=== PATIENT | female | born 1950 | race Caucasian/White ===

== ENCOUNTER → 2016-07-22 12:33 | Outpatient (CLI) | payer OTHER ==
--- NOTE | 2016-08-03 08:42 | EC ---
PATIENT:LIZBETH DANIELSON DATE OF SERVICE: 07/22/16 SEX: F MEDICAL RECORD: [id number] DATE OF : [birth year] LOCATION:[facility] AGE OF PATIENT: 65 ADMISSION DATE: 07/22/16 REFERRING PHYSICIAN: INTERPRETING PHYSICIAN: ROBERTO COHEN MD ECHOCARDIOGRAM REPORT ECHO CHARGES 4 ECHO COMPLETE CLINICAL DIAGNOSIS: PLAPITATIONS ECHOCARDIOGRAPHIC MEASUREMENTS (adult normal given) AC root (d.<3.7cm) 3.4 LV Septum d (<1.2 cm> 1.4 Valve Excursion 1.8 LV Septum (systole) 2.1 Left Atria (s.<4.0cm> 3.6 LVPW d(<1.2cm) 1.4 RV (d.<2.3cm) 3.3 LVPW (sytole) 2.2 LV diastole(<5.6CM) 5.6 MV E-F(>70mm/sec) LV systole 3.2 LVOT Diameter 2.0 MV exc.(>10mm) 1.7 Est.ejection fraction (50-75%) Pericardial Effusion N DOPPLER: LVIT A 100 E 90.0 LA RVSP 24 LVOT 122 AOP1/2T Asc. Ao 170 RVOT 60 RA PA 103 AV Gradient Peak 11.53 AV Mean 5.66 AV Area 2.1 MV Gradient Peak 4.89 MV Mean 2.04 MV Area COMMENTS: Gum Sprayer: Jelani FLOREZ Human Resource Manager:Nirav Hale TAPE# DATE OF SERVICE: 07/22/2016 Adequate 2D echo, color flow and spectral Doppler, and M-mode. Mild LVH. LV internal dimension is normal. Wall motion is normal. EF 55%. Aortic valve is tricuspid. No stenosis by Doppler interrogation. The left atrium is normal at 3.6 cm. Mitral valve shows no prolapse. Trace MR. Right-sided chamber is grossly normal. Trace TR. TRANSINT:[id number] Voice Confirmation ID: [id number] DOCUMENT ID: [id number] 08/01/2016 Edited to correct date of service and fill in blank, dmm. ECHOCARDIOGRAM REPORT [id number] BENLIZBETH OROZCO ROBERTO COHEN MD at 0842 CC: [id number] DICTATION DATE: 07/23/16 1005 INTERNAL AUDIT SENIOR MANAGER: 07/24/16 0811 DEP CLI 07/22/16 [place] [id number] [facility] [place] [address]
== END | disposition home or self-care (01) ==
LOC: D.ECHO 12:33
DX: R00.2 Palpitations (principal)

== ENCOUNTER 2016-10-09 21:26 | Emergency (ER) | payer OTHER ==
[2016-10-09 22:03] LABS: BASOPHILS 0.6 % (0-2); EOSINOPHILS 3.6 % (0-7); HEMATOCRIT 39.6 % (36.0-48.0); HEMOGLOBIN 13.6 g/dL (12-16); IMMATURE GRANULOCYTES 0.2 % (0-5); LYMPHOCYTES 19.8 % (15-50); MCH 28.5 pg (26.0-34.0); MCHC 34.3 g/dL (31.0-37.0); MCV 82.8 fL (80.0-100.0); MEAN PLATELET VOLUME 9.1 fL (7.4-10.4); MONOCYTES 7.3 % (2-11); NEUTROPHILS 68.5 % (40-80); RBC 4.78 10x6/uL (4.00-5.40); RDW 13.5 % (11.5-14.5)
[2016-10-09 22:05] LABS: PLATELET COUNT 224 10x3/uL (130-400)
[2016-10-09 22:16] LABS: ALBUMIN 3.7 g/dL (3.4-5.0); ALKALINE PHOSPHATASE 62 U/L (46-116); ALT (SGPT) 23 U/L (10-68); BILIRUBIN - TOTAL 0.78 mg/dL (0.2-1.3); CARBON DIOXIDE 27.8 mmol/L (21.0-32.0); CHLORIDE - SERUM 106 mmol/L (98-107); CREATININE - SERUM 0.6 mg/dL (0.6-1.3); GLUCOSE 90 mg/dL (74-106); POTASSIUM - SERUM 3.1 mmol/L (3.5-5.1); PROTEIN - SERUM 6.8 g/dL (6.4-8.2); eGFR NON AFRICAN AMERICAN > 90 mL/min (90-120)
[2016-10-09 22:33] LABS: CALC OSMOLALITY 278 mosm/kg (275-300); SODIUM 141 mmol/L (136-145); TROPONIN-I < 0.017 ng/mL (0.000-0.060); UREA NITROGEN 6 mg/dL (7-18)
== END 2016-10-10 00:15 | disposition home or self-care (01) ==
LOC: D.ER 21:26
PROVIDERS: Family Medicine
DX: I10 Essential (primary) hypertension (principal); Z91.19 Patient's noncompliance with other medical treatment and regimen; F41.9 Anxiety disorder, unspecified

== ENCOUNTER 2017-02-11 15:41 | Emergency (ER) | payer OTHER | END 2017-02-11 18:36 | disposition home or self-care (01) | LOC: D.ER 15:41 | DX: S50.811A Abrasion of right forearm, initial encounter (principal); Y04.2XXA Assault by strike against or bumped into by another person, initial encounter; Y93.89 Activity, other specified; Y92.029 Unspecified place in mobile home as the place of occurrence of the external cause; I10 Essential (primary) hypertension ==

== ENCOUNTER 2017-12-31 15:21 | Emergency (ER) | payer OTHER ==
[~2017-12-31] VITALS: Ht 157.5 cm; Wt 75.0 kg
[2017-12-31 15:24] VITALS: Ht 157.5 cm; Wt 75.0 kg
[2017-12-31] MEDS ORDERED: LEXAPRO20 MG PO (15:36)
[2017-12-31 16:51] LABS: BASOPHILS 0.3 % (0-2); EOSINOPHILS 1.7 % (0-7); HEMATOCRIT 41.5 % (36.0-48.0); HEMOGLOBIN 13.9 g/dL (12-16); IMMATURE GRANULOCYTES 0.2 % (0-5); LYMPHOCYTES 9.7 % (15-50); MCHC 33.5 g/dL (31.0-37.0); MCV 83.7 fL (80.0-100.0); MEAN PLATELET VOLUME 9.3 fL (7.4-10.4); MONOCYTES 6.9 % (2-11); NEUTROPHILS 81.2 % (40-80); PLATELET COUNT 177 10x3/uL (130-400); RBC 4.96 10x6/uL (4.00-5.40); RDW 13.8 % (11.5-14.5)
[2017-12-31 16:59] LABS: APPEARANCE CLEAR (CLEAR); COLOR YELLOW (YELLOW); SPECIFIC GRAVITY 1.015 (1.005-1.020)
[2017-12-31 17:00] LABS: BILIRUBIN NEGATIVE (NEGATIVE); GLUCOSE NEGATIVE (NEGATIVE); KETONE NEGATIVE (NEGATIVE); NITRITE NEGATIVE (NEGATIVE); PROTEIN NEGATIVE (NEGATIVE); UROBILINOGEN NORMAL (NORMAL)
[2017-12-31 17:01] LABS: BACTERIA FEW /hpf (NONE SEEN); EPITHELIAL CELLS 0-5 /hpf (0-5); WHITE CELLS - URINE 0-5 /hpf (0-5)
[2017-12-31 17:37] LABS: ALBUMIN 3.3 g/dL (3.4-5.0); ALKALINE PHOSPHATASE 57 U/L (46-116); ALT (SGPT) 19 U/L (10-68); BILIRUBIN - TOTAL 0.67 mg/dL (0.2-1.3); CALC OSMOLALITY 277 mosm/kg (275-300); CALCIUM 8.7 mg/dL (8.5-10.1); CARBON DIOXIDE 28.8 mmol/L (21.0-32.0); CHLORIDE - SERUM 107 mmol/L (98-107); CKMB 0.5 U/L (0.0-3.6); CREATININE - SERUM 0.6 mg/dL (0.6-1.3); GLUCOSE 99 mg/dL (74-106); PROTEIN - SERUM 6.3 g/dL (6.4-8.2); SODIUM 140 mmol/L (136-145); TROPONIN-I < 0.017 ng/mL (0.000-0.060); UREA NITROGEN 10 mg/dL (7-18); eGFR NON AFRICAN AMERICAN > 90 mL/min (90-120)
[2017-12-31] MEDS ORDERED: MACROBID100 MG PO (18:09)
[2017-12-31 21:00] VITALS: BP 133/77
== END 2017-12-31 21:31 | disposition home or self-care (01) ==
LOC: D.ER 15:21
PROVIDERS: Emergency Medicine
DX: N39.0 Urinary tract infection, site not specified (principal); R53.83 Other fatigue; R53.1 Weakness; R41.0 Disorientation, unspecified

== ENCOUNTER 2018-05-07 18:50 | Emergency (ER) | payer MEDICARE ==
[~2018-05-07] VITALS: Ht 157.5 cm; Wt 59.1 kg
[~2018-05-07 18:50] MED LIST: LEXAPRO20 MG PO; MACROBID100 MG PO
[2018-05-07 19:02] VITALS: Ht 157.5 cm; Wt 59.1 kg
[2018-05-07] MEDS ORDERED: DONEPEZIL HCL10 MG PO (19:10)
[2018-05-07 19:35] LABS: BASOPHILS 0.2 % (0-2); EOSINOPHILS 0.5 % (0-7); HEMATOCRIT 44.1 % (36.0-48.0); HEMOGLOBIN 15.2 g/dL (12-16); IMMATURE GRANULOCYTES 0.1 % (0-5); LYMPHOCYTES 7.3 % (15-50); MCH 27.8 pg (26.0-34.0); MCHC 34.5 g/dL (31.0-37.0); MCV 80.6 fL (80.0-100.0); MEAN PLATELET VOLUME 9.4 fL (7.4-10.4); MONOCYTES 7.5 % (2-11); NEUTROPHILS 84.4 % (40-80); PLATELET COUNT 193 10x3/uL (130-400); RBC 5.47 10x6/uL (4.00-5.40); RDW 13.5 % (11.5-14.5); WBC 9.3 10x3/uL (4.8-10.8)
[2018-05-07 19:57] LABS: ALBUMIN 3.7 g/dL (3.4-5.0); ALKALINE PHOSPHATASE 68 U/L (46-116); ALT (SGPT) 36 U/L (10-68); BILIRUBIN - TOTAL 0.91 mg/dL (0.2-1.3); CALC OSMOLALITY 279 mosm/kg (275-300); CALCIUM 9.6 mg/dL (8.5-10.1); CARBON DIOXIDE 27.9 mmol/L (21.0-32.0); CHLORIDE - SERUM 101 mmol/L (98-107); CREATININE - SERUM 0.7 mg/dL (0.6-1.3); GLUCOSE 143 mg/dL (74-106); POTASSIUM - SERUM 3.1 mmol/L (3.5-5.1); PROTEIN - SERUM 7.2 g/dL (6.4-8.2); SODIUM 139 mmol/L (136-145); UREA NITROGEN 12 mg/dL (7-18); eGFR NON AFRICAN AMERICAN 89 mL/min (90-120)
[2018-05-07 21:23] LABS: APPEARANCE CLEAR (CLEAR); BILIRUBIN NEGATIVE (NEGATIVE); COLOR YELLOW (YELLOW); GLUCOSE NEGATIVE (NEGATIVE); KETONE MODERATE mg/dL (NEGATIVE); NITRITE NEGATIVE (NEGATIVE); PROTEIN TRACE mg/dL (NEGATIVE); UROBILINOGEN NORMAL (NORMAL)
[2018-05-07 21:24] LABS: WHITE CELLS - URINE 0-5 /hpf (0-5)
[2018-05-07 21:25] LABS: BACTERIA FEW /hpf (NONE SEEN); EPITHELIAL CELLS 0-5 /hpf (0-5); RED CELLS - URINE 0-5 /hpf (0-5)
[2018-05-07 23:04] VITALS: BP 131/63
[2018-05-12 13:25] VITALS: Ht 157.5 cm; Wt 59.1 kg
== END 2018-05-07 23:05 | disposition home or self-care (01) ==
LOC: D.ER 18:50
PROVIDERS: Emergency Medicine
DX: S92.502A Displaced unspecified fracture of left lesser toe(s), initial encounter for closed fracture (principal); W18.30XA Fall on same level, unspecified, initial encounter; Y93.89 Activity, other specified; Y92.019 Unspecified place in single-family (private) house as the place of occurrence of the external cause; E87.6 Hypokalemia; S89.91XA Unspecified injury of right lower leg, initial encounter; R55 Syncope and collapse

== ENCOUNTER 2018-05-11 19:14 | Inpatient (IN) | payer MEDICARE ==
[~2018-05-11] VITALS: Ht 157.5 cm; Wt 75.0 kg
[~2018-05-11 19:14] MED LIST changes: +DONEPEZIL HCL10 MG PO
[2018-05-11 20:02] LABS: BASOPHILS 0.2 % (0-2); EOSINOPHILS 1.2 % (0-7); HEMATOCRIT 44.3 % (36.0-48.0); HEMOGLOBIN 15.1 g/dL (12-16); IMMATURE GRANULOCYTES 0.2 % (0-5); LYMPHOCYTES 9.1 % (15-50); MCH 27.7 pg (26.0-34.0); MCHC 34.1 g/dL (31.0-37.0); MCV 81.1 fL (80.0-100.0); MEAN PLATELET VOLUME 9.9 fL (7.4-10.4); MONOCYTES 7.4 % (2-11); NEUTROPHILS 81.9 % (40-80); PLATELET COUNT 164 10x3/uL (130-400); RBC 5.46 10x6/uL (4.00-5.40); RDW 13.8 % (11.5-14.5); WBC 9.1 10x3/uL (4.8-10.8)
[2018-05-11 21:30] LABS: ALBUMIN 3.2 g/dL (3.4-5.0); ALKALINE PHOSPHATASE 59 U/L (46-116); ALT (SGPT) 44 U/L (10-68); BILIRUBIN - TOTAL 0.53 mg/dL (0.2-1.3); CALC OSMOLALITY 286 mosm/kg (275-300); CHLORIDE - SERUM 106 mmol/L (98-107); CREATININE - SERUM 0.7 mg/dL (0.6-1.3); GLUCOSE 132 mg/dL (74-106); POTASSIUM - SERUM 4.7 mmol/L (3.5-5.1); PROTEIN - SERUM 6.3 g/dL (6.4-8.2); SODIUM 143 mmol/L (136-145); UREA NITROGEN 12 mg/dL (7-18); eGFR NON AFRICAN AMERICAN 89 mL/min (90-120)
[2018-05-11 21:33] LABS: TROPONIN-I < 0.017 ng/mL (0.000-0.060)
[2018-05-11] MEDS ORDERED: METOPROLOL (23:34)
--- NOTE | 2018-05-11 23:47 | NUR ---
RECEIVED FROM ER VIA WC. ALERT/ORIENTED X3. AMBULATES WITH STEADY GAIT. DENIES PAIN. IV IN L AC INTACT SL. ORIENTED TO ROOM AND CALL LIGHT.
[2018-05-12 03:20] VITALS: BP 164/52; BMI 30.2
[2018-05-12 05:35] LABS: BASOPHILS 0.2 % (0-2); EOSINOPHILS 2.7 % (0-7); HEMATOCRIT 39.9 % (36.0-48.0); HEMOGLOBIN 13.5 g/dL (12-16); IMMATURE GRANULOCYTES 0.2 % (0-5); LYMPHOCYTES 28.8 % (15-50); MCH 27.8 pg (26.0-34.0); MCHC 33.8 g/dL (31.0-37.0); MCV 82.3 fL (80.0-100.0); MEAN PLATELET VOLUME 9.7 fL (7.4-10.4); MONOCYTES 8.8 % (2-11); NEUTROPHILS 59.3 % (40-80); PLATELET COUNT 163 10x3/uL (130-400); RBC 4.85 10x6/uL (4.00-5.40); RDW 13.8 % (11.5-14.5)
[2018-05-12 05:47] LABS: WBC 5.3 10x3/uL (4.8-10.8)
[2018-05-12 05:51] LABS: CALC OSMOLALITY 286 mosm/kg (275-300); CALCIUM 8.9 mg/dL (8.5-10.1); CARBON DIOXIDE 32.5 mmol/L (21.0-32.0); CHLORIDE - SERUM 109 mmol/L (98-107); CREATININE - SERUM 0.6 mg/dL (0.6-1.3); GLUCOSE 85 mg/dL (74-106); POTASSIUM - SERUM 4.9 mmol/L (3.5-5.1); SODIUM 145 mmol/L (136-145); UREA NITROGEN 9 mg/dL (7-18); eGFR NON AFRICAN AMERICAN > 90 mL/min (90-120)
[2018-05-12 09:01] VITALS: BP 145/44
--- NOTE | 2018-05-12 10:28 | NUR ---
AMBULATES IN HALLWAY. GAIT STEADY. TELEMETRY SB. HR 57. WILL CONT. PLAN OF CARE.
[2018-05-12 13:25] VITALS: Ht 157.5 cm; Wt 75.0 kg
--- NOTE | 2018-05-12 13:26 | NUR ---
UP AND AMBULATING. DOES NOT WANT SCDS AT THIS TIME.
--- NOTE | 2018-05-12 14:02 | NUR ---
BANDAID APPLIED TO RIGHT ELBOW SKIN ABRAISION.
[2018-05-12 14:03] VITALS: BP 156/40
--- NOTE | 2018-05-12 14:56 | NUR ---
URINE SPECIMEN COLLECTED AND TAKEN TO LAB. WILL MONITOR.
[2018-05-12 15:25] LABS: APPEARANCE CLEAR (CLEAR); BILIRUBIN NEGATIVE (NEGATIVE); COLOR YELLOW (YELLOW); GLUCOSE NEGATIVE (NEGATIVE); KETONE NEGATIVE (NEGATIVE); NITRITE NEGATIVE (NEGATIVE); PROTEIN NEGATIVE (NEGATIVE); UROBILINOGEN NORMAL (NORMAL)
[2018-05-12 17:44] VITALS: BP 136/68
[2018-05-12 20:23] VITALS: BP 131/44
--- NOTE | 2018-05-12 20:30 | NUR ---
ADMIN SCHED MED WITH SIPS OF WATER. DENIES PAIN OR ANY NEEDS. DID NOT EAT ANY OF HER SALAD OR SANDWICH. STATED SHE WAS NOT HUNGRY.
--- NOTE | 2018-05-12 21:00 | NUR ---
AMBULATING OUT IN THE HALLWAY, STATING "THE MEDICINE GIVEN ME IS MAKING MY TEETH MELT AND PART OF MY BRAIN WAS EXCISED". ESCORTED BACK TO HER ROOM AND ASSURED THAT HER TEETH WERE ALL INTACT.
[2018-05-13 01:46] VITALS: BP 169/60
[2018-05-13 05:29] LABS: BASOPHILS 0.2 % (0-2); EOSINOPHILS 3.5 % (0-7); HEMATOCRIT 39.7 % (36.0-48.0); HEMOGLOBIN 13.2 g/dL (12-16); IMMATURE GRANULOCYTES 0.2 % (0-5); LYMPHOCYTES 24.8 % (15-50); MCH 27.6 pg (26.0-34.0); MCHC 33.2 g/dL (31.0-37.0); MCV 82.9 fL (80.0-100.0); MEAN PLATELET VOLUME 9.7 fL (7.4-10.4); MONOCYTES 8.1 % (2-11); NEUTROPHILS 63.2 % (40-80); PLATELET COUNT 161 10x3/uL (130-400); RBC 4.79 10x6/uL (4.00-5.40); RDW 13.8 % (11.5-14.5); WBC 4.8 10x3/uL (4.8-10.8)
[2018-05-13 05:34] VITALS: BP 179/73
[2018-05-13 05:41] LABS: CALC OSMOLALITY 284 mosm/kg (275-300); CALCIUM 8.8 mg/dL (8.5-10.1); CARBON DIOXIDE 31.3 mmol/L (21.0-32.0); CHLORIDE - SERUM 106 mmol/L (98-107); CREATININE - SERUM 0.6 mg/dL (0.6-1.3); GLUCOSE 93 mg/dL (74-106); POTASSIUM - SERUM 4.3 mmol/L (3.5-5.1); SODIUM 142 mmol/L (136-145); eGFR NON AFRICAN AMERICAN > 90 mL/min (90-120)
[2018-05-13 05:43] LABS: UREA NITROGEN 18 mg/dL (7-18)
[2018-05-13 08:31] VITALS: BP 149/102
[2018-05-13] MEDS ORDERED: ZESTRIL10 MG PO (11:24)
--- NOTE | 2018-05-13 11:55 | NUR ---
[facility] E-SCR[facility]. [facility] CL[facility] T[facility] MONDAY MORNING. WILL ATTEMPT TO GET PM DOSE FROM [facility] PATIENT.
--- NOTE | 2018-05-13 14:40 | NUR ---
DC PLANS GIVEN. IV DCD. STILL UNABLE TO GET IN TOUCH WITH BROTHER. LEAVING MESSAGES ON PHONE. NALLELY FROM [facility] CAREGIVER CALLED AND STATED SHE WOULD CONTACT HER BROTHER FOR TRANSPERTATION HOME. I STILL HAVE NOT HEARD ANYTHING BACK. UNSAFE TO SEND HER HOME IN [place] DUE TO HER MENATAL STATES PER ASSET AVAILABILITY LEADER. WILL CONT TO WAIT ON BROTHER.
--- NOTE | 2018-05-13 15:15 | NUR ---
LEAVING HOSPITOL WITH BROTHER. ESCORTED TO CAR BY W/C.
--- NOTE | 2018-05-13 21:00 | MORECARE ---
CASE MANAGEMENT DISCHARGE SUMMARY PATIENT: LIZBETH DANIELSON UNIT: [id number] ADM DATE: 05/12/18 AGE: 67 : 52 SEX: F ROOM/BED: D.2114 AUTHOR: LISANDRA BELLAMY PHYSICIAN: REFERRING PHYSICIAN: JONO OJEDA MD DATE OF SERVICE: 05/13/18 Discharge Plan Patient Name: LIZBETH DANIELSON Facility: [facility]:[place] : 1950 Planned Disposition: Other Type of Facility Anticipated Discharge Date: 05/13/18 Discharge Date: 05/13/2018 Expected LOS: 1 Initial Reviewer: [email or web address] Initial Review Date: 05/11/2018 Generated: 05/13/18 10:00 pm Patient Name: LIZBETH DANIELSON Page [phone] at 2100 All edits/amendments must be made on the electronic document DICTATION DATE: 05/13/182058 LEGAL ENTITY CONTROLLER: AUBRIE 05/13/182058 RPT#: [id number] DC DATE:05/13/18 STATUS: DIS IN [facility] [address] [place] [address] END OF REPORT
--- NOTE | 2018-05-13 21:06 | MORECARE ---
CASE MANAGEMENT DISCHARGE SUMMARY PATIENT: LIZBETH DANIELSON UNIT: [id number] ADM DATE: 05/12/18 AGE: 67 : 52 SEX: F ROOM/BED: D.4484 AUTHOR: LISANDRA BELLAMY PHYSICIAN: REFERRING PHYSICIAN: JONO OJEDA MD DATE OF SERVICE: 05/13/18 Discharge Plan Patient Name: LIZBETH DANIELSON Facility: [facility]:[place] : 1950 Planned Disposition: Other Type of Facility Anticipated Discharge Date: 05/13/18 Discharge Date: 05/13/2018 Expected LOS: 1 Initial Reviewer: [email or web address] Initial Review Date: 05/11/2018 Generated: 05/13/18 10:06 pm Comments DCP- Discharge Planning Updated by [email or web address]: Deepika Garland on 05/13/18 8:[address] LATE ENTRY 1130 CM VISITED WITH THE PATIENT. SHE IS RESTLESS. SHE COULD NOT GIVE HER ADDRESS BUT KNEW SHE DID NOT LIVE ON [facility] AND HOME. SHE HAS A BROTHER AND THE NURSE HAD CALLED HIM. SHE LEFT A VOICE MAIL MESSAGE. THE CONTACT NUMBER ON THE FACE SHEET WAS WRONG. PRIMARY NURSE FOUND ANOTHER PHONE NUMBER TO PLACE CALL. DETERMINED PATIENT MAY LIVE IN [facility] BY HER DESCRIPTION. TC TO THE [facility]. THE SENIOR QA ANALYST HAPPEN TO BE ONSITE AND KNEW THE PATIENT HAD BEEN SENT TO THE HOSPITAL AT [facility]. CONFIRMED SITE OF RESIDENCY. SHE HAD A PERSON'S NUMBER WHO KNEW THE BROTHER. CONTACT MADE LATE THIS AFTERNOON WITH THE BROTHER. HE DID PROVIDE TRANSPORTATION TO [facility]. PATIENT LIVES AT [facility], [address] [place] [address]. BROTHER'S CONTACT PHONE NUMBER SUJIT DANIELSON- [phone] Last DP export: 05/13/18 8:00 pm Patient Name: LIZBETH DANIELSON Page [phone] at 210 All edits/amendments must be made on the electronic document DICTATION DATE: 05/13/182105 BAG CHECKER: AUBRIE 05/13/182105 RPT#: [id number] DC DATE:05/13/18 STATUS: DIS IN [facility] [address] [place] [address] END OF REPORT
== END 2018-05-13 15:15 | disposition home or self-care (01) | DRG 312 ==
LOC: D.ER 19:14 → D.EDHOLD 22:35 → OBSVTIME 22:35 → D.M2 22:54
PROVIDERS: Family Medicine; ADMIT Internal Medicine Nephrology
DX: R55 Syncope and collapse (principal); R00.1 Bradycardia, unspecified; I10 Essential (primary) hypertension

== ENCOUNTER 2018-05-15 19:33 | Observation (INO) | payer MEDICARE ==
[~2018-05-15] VITALS: Ht 157.5 cm; Wt 60.8 kg
[~2018-05-15 19:33] MED LIST changes: +METOPROLOL; +ZESTRIL10 MG PO
[2018-05-15 20:12] LABS: BASOPHILS 0.4 % (0-2); EOSINOPHILS 1.3 % (0-7); HEMOGLOBIN 14.8 g/dL (12-16); MCH 28.1 pg (26.0-34.0); MCHC 34.4 g/dL (31.0-37.0); MCV 81.6 fL (80.0-100.0); MEAN PLATELET VOLUME 9.8 fL (7.4-10.4); MONOCYTES 11.2 % (2-11); NEUTROPHILS 72.1 % (40-80); PLATELET COUNT 169 10x3/uL (130-400); RBC 5.27 10x6/uL (4.00-5.40); RDW 13.7 % (11.5-14.5); WBC 5.6 10x3/uL (4.8-10.8)
[2018-05-15 20:18] LABS: APPEARANCE CLEAR (CLEAR); BILIRUBIN NEGATIVE (NEGATIVE); COLOR YELLOW (YELLOW); GLUCOSE NEGATIVE (NEGATIVE); KETONE NEGATIVE (NEGATIVE); NITRITE NEGATIVE (NEGATIVE); PROTEIN NEGATIVE (NEGATIVE); SPECIFIC GRAVITY 1.015 (1.005-1.020); UROBILINOGEN NORMAL (NORMAL)
[2018-05-15 20:30] LABS: UDS - AMPHET NEGATIVE QUAL (NEGATIVE); UDS - BARB NEGATIVE QUAL (NEGATIVE); UDS - BENZO NEGATIVE QUAL (NEGATIVE); UDS - COCAINE NEGATIVE QUAL (NEGATIVE); UDS - OPIATE NEGATIVE QUAL (NEGATIVE); UDS - PCP NEGATIVE QUAL (NEGATIVE); UDS - THC NEGATIVE QUAL (NEGATIVE)
[2018-05-15 20:33] LABS: ALBUMIN 3.6 g/dL (3.4-5.0); ALKALINE PHOSPHATASE 94 U/L (46-116); ALT (SGPT) 74 U/L (10-68); CALC OSMOLALITY 274 mosm/kg (275-300); CARBON DIOXIDE 28.3 mmol/L (21.0-32.0); CHLORIDE - SERUM 99 mmol/L (98-107); CREATININE - SERUM 0.7 mg/dL (0.6-1.3); GLUCOSE 136 mg/dL (74-106); POTASSIUM - SERUM 3.4 mmol/L (3.5-5.1); SODIUM 137 mmol/L (136-145); UREA NITROGEN 9 mg/dL (7-18); eGFR NON AFRICAN AMERICAN 89 mL/min (90-120)
[2018-05-15 20:44] LABS: MAGNESIUM - SERUM 1.7 mg/dL (1.8-2.4)
[2018-05-16] VITALS (7 sets, daily range): BP systolic 120–172; BP diastolic 59–79; Ht 157.5 cm; Wt 60.8 kg
[2018-05-16 15:32] LABS: BASOPHILS 0.5 % (0-2); EOSINOPHILS 2.9 % (0-7); HEMOGLOBIN 13.4 g/dL (12-16); IMMATURE GRANULOCYTES 0.2 % (0-5); LYMPHOCYTES 24.5 % (15-50); MCH 27.7 pg (26.0-34.0); MCHC 33.5 g/dL (31.0-37.0); MCV 82.6 fL (80.0-100.0); MEAN PLATELET VOLUME 9.4 fL (7.4-10.4); MONOCYTES 8.8 % (2-11); NEUTROPHILS 63.1 % (40-80); PLATELET COUNT 195 10x3/uL (130-400); RBC 4.84 10x6/uL (4.00-5.40); WBC 5.6 10x3/uL (4.8-10.8)
[2018-05-16 16:10] LABS: ALKALINE PHOSPHATASE 78 U/L (46-116); BILIRUBIN - TOTAL 0.48 mg/dL (0.2-1.3); CALCIUM 8.6 mg/dL (8.5-10.1); CARBON DIOXIDE 29.7 mmol/L (21.0-32.0); CHLORIDE - SERUM 104 mmol/L (98-107); CREATININE - SERUM 0.7 mg/dL (0.6-1.3); GLUCOSE 104 mg/dL (74-106); POTASSIUM - SERUM 3.9 mmol/L (3.5-5.1); SODIUM 142 mmol/L (136-145); eGFR NON AFRICAN AMERICAN 89 mL/min (90-120)
[2018-05-16 16:12] LABS: ALT (SGPT) 55 U/L (10-68); CALC OSMOLALITY 283 mosm/kg (275-300); UREA NITROGEN 14 mg/dL (7-18)
[2018-05-17] VITALS: BP 129/64
[2018-05-17 04:00] VITALS: BP 118/64
[2018-05-17 06:31] LABS: HEMATOCRIT 39.1 % (36.0-48.0); HEMOGLOBIN 13.4 g/dL (12-16); LYMPHOCYTES 22.7 % (15-50); MCH 28.3 pg (26.0-34.0); MCHC 34.3 g/dL (31.0-37.0); MCV 82.7 fL (80.0-100.0); MEAN PLATELET VOLUME 9.2 fL (7.4-10.4); NEUTROPHILS 61.9 % (40-80); PLATELET COUNT 191 10x3/uL (130-400); RBC 4.73 10x6/uL (4.00-5.40); RDW 13.9 % (11.5-14.5); WBC 4.9 10x3/uL (4.8-10.8)
[2018-05-17 06:49] LABS: ALBUMIN 2.9 g/dL (3.4-5.0); ALKALINE PHOSPHATASE 67 U/L (46-116); ALT (SGPT) 45 U/L (10-68); BILIRUBIN - TOTAL 0.46 mg/dL (0.2-1.3); CALCIUM 8.9 mg/dL (8.5-10.1); CARBON DIOXIDE 32.9 mmol/L (21.0-32.0); CHLORIDE - SERUM 106 mmol/L (98-107); CREATININE - SERUM 0.7 mg/dL (0.6-1.3); GLUCOSE 89 mg/dL (74-106); PROTEIN - SERUM 5.8 g/dL (6.4-8.2); SODIUM 145 mmol/L (136-145); eGFR NON AFRICAN AMERICAN 89 mL/min (90-120)
[2018-05-17 06:52] LABS: CALC OSMOLALITY 291 mosm/kg (275-300); POTASSIUM - SERUM 4.8 mmol/L (3.5-5.1); UREA NITROGEN 25 mg/dL (7-18)
[2018-05-17 09:30] VITALS: BP 103/37
[2018-05-17 12:43] VITALS: BP 112/75
[2018-05-17 16:56] VITALS: BP 138/83
--- NOTE | 2018-05-18 10:19 | MORECARE ---
CASE MANAGEMENT DISCHARGE SUMMARY PATIENT: LIZBETH DANIELSON UNIT: [id number] ADM DATE: 05/15/18 AGE: 67 : 52 SEX: F ROOM/BED: D.2656 AUTHOR: LISANDRA BELLAMY PHYSICIAN: REFERRING PHYSICIAN: CHLOE COOPER MD DATE OF SERVICE: 05/18/18 Discharge Plan Patient Name: LIZBETH DANIELSON Facility: [facility]:[place] : 1950 Planned Disposition: Psych facility Anticipated Discharge Date: 05/17/18 Discharge Date: 05/17/2018 Expected LOS: 2 Initial Reviewer: [email or web address] Initial Review Date: 05/18/2018 Generated: 05/18/18 11:19 am Coverage Notice Reviewer: [email or web address] Kristi Arceo Notice Issued Date-Time: 05/16/2018 15:43 Notice Type: Medicare Outpatient Observation Notice Notice Delivered To: Relationship to Patient: Tool Distributor Name: Delivery Method: - Leatha Days: Prior Verbal Notification: Recipient Understood Notice: Recipient Signature: Med Rec Note Co-signed by Attending: Coverage Notice Comment: ATTEMPTED TO DELIVER MOORE. PATIENT VERY CONFUSED AND UNABLE TO SIGN OR UNDERSTAND. DID NOT LEAVE COPY AT BEDSIDE. NEXT OF KIN LISTED IN CHART IS SUJIT MONTOYA, BROTHER. MESSAGE LEFT AT [phone]. WILL DISCUSS WITH HIM IF CALL RETURNED. Patient Name: LIZBETH DANIELSON Page [phone] at 1019 All edits/amendments must be made on the electronic document DICTATION DATE: 05/18/18 1019 DRY CLIPPER TENDER: AUBRIE 05/18/18 1019 RPT#: [id number] DC DATE:05/17/18 STATUS: DIS IN [facility] [address] [place] [address] END OF REPORT
== END 2018-05-17 20:21 | disposition short-term general hospital (02) ==
LOC: D.ER 19:33 → D.EDHOLD 21:15 → OBSVTIME 21:15 → D.M2 21:15
PROVIDERS: Emergency Medicine; Family Medicine; ADMIT Emergency Medicine
DX: F03.90 Unspecified dementia, unspecified severity, without behavioral disturbance, psychotic disturbance, mood disturbance, and anxiety (principal); I10 Essential (primary) hypertension; E87.6 Hypokalemia; F32.9 Major depressive disorder, single episode, unspecified

== ENCOUNTER 2018-05-17 17:41 | Inpatient (IN) | payer MEDICARE ==
[~2018-05-17] VITALS: Ht 165.1 cm; Wt 63.0 kg
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
[2018-05-17 23:08] VITALS: BP 151/87; BMI 24.7
--- NOTE | 2018-05-17 23:15 | NUR ---
NO RETURN CALL OF YET FROM PATIENT'S BROTHER.
--- NOTE | 2018-05-18 03:54 | NUR ---
IN BED, EYES CLOSED, RESPIRATIONS EASY AND REGULAR, DEEMED TO BE SLEEPING. NO SIGNS OF DISTRESS.
[2018-05-18 06:05] LABS: BASOPHILS 0.5 % (0-2); EOSINOPHILS 4.6 % (0-7); HEMATOCRIT 38.7 % (36.0-48.0); HEMOGLOBIN 12.7 g/dL (12-16); LYMPHOCYTES 22.6 % (15-50); MCH 27.4 pg (26.0-34.0); MCHC 32.8 g/dL (31.0-37.0); MCV 83.6 fL (80.0-100.0); MEAN PLATELET VOLUME 9.6 fL (7.4-10.4); MONOCYTES 11.5 % (2-11); NEUTROPHILS 60.8 % (40-80); PLATELET COUNT 166 10x3/uL (130-400); RBC 4.63 10x6/uL (4.00-5.40); RDW 13.9 % (11.5-14.5); WBC 4.3 10x3/uL (4.8-10.8)
[2018-05-18 06:38] LABS: ALBUMIN 2.8 g/dL (3.4-5.0); ALKALINE PHOSPHATASE 62 U/L (46-116); ALT (SGPT) 49 U/L (10-68); BILIRUBIN - TOTAL 0.68 mg/dL (0.2-1.3); CALC OSMOLALITY 287 mosm/kg (275-300); CALCIUM 8.8 mg/dL (8.5-10.1); CARBON DIOXIDE 34.1 mmol/L (21.0-32.0); CHLORIDE - SERUM 106 mmol/L (98-107); CHOL - HDL RATIO 2.9 ratio (2.3-4.1); CHOLESTEROL, TOTAL 152 mg/dL (0-200); CREATININE - SERUM 0.6 mg/dL (0.6-1.3); GLUCOSE 86 mg/dL (74-106); HDL CHOLESTEROL 52 mg/dL (32-96); LDL CHOLESTEROL 91 mg/dL (0-100); LDL-HDL RATIO 1.8 ratio (1.5-3.5); POTASSIUM - SERUM 4.5 mmol/L (3.5-5.1); PROTEIN - SERUM 5.7 g/dL (6.4-8.2); SODIUM 144 mmol/L (136-145); THYROID STIMULATING HORMONE 2.34 uIU/mL (0.36-3.74); TRIGLYCERIDE 49 mg/dL (30-200); eGFR NON AFRICAN AMERICAN > 90 mL/min (90-120)
[2018-05-18 06:40] LABS: UREA NITROGEN 18 mg/dL (7-18)
[2018-05-18 09:59] VITALS: BP 126/75
[2018-05-18 10:24] VITALS: BMI 24.6
--- NOTE | 2018-05-18 10:30 | NUR ---
The patient is awake and alert, she is pleasant and she is very social. She can recall terminal make up operator, but has poor short term recall and has poor insight into her situation. She is oriented to person and place, but she can not tell me things like what her landlord's name is. She is not showing any paranoia or delusions today. She does have a walking boot on her right foot. She is compliant with medications. Continue POC.
[2018-05-18 14:25] VITALS: Ht 165.1 cm; Wt 63.0 kg
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
--- NOTE | 2018-05-18 18:00 | NUR ---
The patient did not like her dinner and that put her in a bad mood. Staff asked her if she would like something else she said "No, I don't like to waste food." She came into the day room and said "I'd like my warch, when can I get my watch?" Explained the reason for taking the watch. She said "I don't know the time." Showed her the clock she said "I'm not in here, I do not see it." Explained to her that she stays in the day room. She said "Well, I get nothing out of it." She is irritable, but she soon forgets as she becomes interested in the television.
[2018-05-18 20:14] VITALS: BP 146/72
--- NOTE | 2018-05-18 21:47 | NUR ---
PATIENT IS TEARFUL, PACING A LITTLE, WHEN SHE GETS UP TO WALK SHE GETS UP QUICKLY IF SHE IS IN A HURRY. SHE IS SAYING THAT SHE HAS NO FAMILY AND IS NOT ABLE TO WORK ANYMORE. COMPLIANT WITH MEDS. NO ADVERSE REACTION NOTED
[2018-05-19 07:23] LABS: VITAMIN D 25 HYDROXY 20.8 ng/mL (30.0-100.0)
[2018-05-19 08:00] VITALS: BP 173/82
[2018-05-19 08:19] LABS: RAPID PLASMA REAGIN Non Reactive (Non Reactive)
--- NOTE | 2018-05-19 10:30 | NUR ---
The patient is labile, but she is forgetful too. So one minute she can be irritable and then the next minute she will forget about it and then another minute she'll say "You are so pleasant." She is social with everyone and tries to make positive statements, but on a dime she can turn and be hateful. Redirect and provide the unit rules. The patient is compliant with meds and redirects as needed. Continue POC
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
[2018-05-19 21:54] VITALS: BP 151/72
--- NOTE | 2018-05-19 23:39 | NUR ---
RECEIVED IN DAYROOM. SITITNG IN RECLINER WHILE SOCIALIZING WITH PEERS. CALM AND COOPERATIVE WITH CARE AND ASSESSMENT. CONFUSED. NO SIGNS OF HALLUCINATIONS. REDIRECT AND REORIENT NEEDED. RESTING IN BED WITH EYES CLOSED AT THIS TIME. CONTINUE PLAN OF CARE.
--- NOTE | 2018-05-20 07:30 | NUR ---
REC'D PT IN HALLWAY WITH PEERS SITTING IN CHAIR WHILE SOCALIZING. CALM AND COOPERATIVE WITH ASSESSMENT. PT IS ALERT WITH CONFUSION NOTED. NO S/SX OF HALLUCINATIONS. REDIRECT AND REORIENT NEEDED. FALL PRECAUTIONS IN PLACE. WILL CONTINUE TO MONITOR Q 15 MINUTES FOR SAFETY. WILL CPOC.
[2018-05-20 09:00] VITALS: BP 149/81
--- NOTE | 2018-05-20 12:04 | PN ---
PATIENT:LIZBETH DANIELSON MEDICAL RECORD: [id number] LOCATION:[facility] ADMISSION DATE: 05/17/18 PROGRESS NOTE DATE OF SERVICE: 05/19/2018 SUBJECTIVE: The patient's case was discussed with staff. She has no new complaint. OBJECTIVE: The patient is quite impaired cognitively, but has been in good behavioral control. She has had some mood lability noticed by the staff. I had observed this 2 days ago when she was on the medical floor. I am going to treat her with a low dose of Trilafon to assist with her thought disorganization and mood regulation. She will be monitored for clinical changes associated with its use. TRANSINT:[id number] Voice Confirmation ID: [id number] DOCUMENT ID: [id number] NICOLASA NEFF MD at 1204 CC: [id number] DICTATION DATE: 05/19/18 1156 ASSOCIATE DIRECTOR FINANCIAL AID: 05/19/18 1336 ADM IN [place] [address] [place] [address]
--- NOTE | 2018-05-20 20:46 | NUR ---
RECEIVED IN DAYROOM. RESTING IN A RECLINER WITH PEERS AT HER SIDE. CALM AND COOPERATIVE WITH CARE AND ASSESSMENT. NO SIGNS OF PARANOIA. REDIRECT AND REORIENT NEEDED. CONTINUES TO REST QUIETLY IN CHAIR. CONTINUE PLAN OF CARE
[2018-05-20 22:15] VITALS: BP 148/51
[2018-05-21 08:00] VITALS: BP 137/82
--- NOTE | 2018-05-21 09:00 | NUR ---
RECEIVED IN HALLWAY WITH PEERS. ORIENTED X 2. SH IS VERY SOCIAL WITH PEERS AND STAFF. CALM AND COOPERATIVE WITH CARE AND ASSESSMENT. REDIRECT AND REORIENT NEEDED. MONITOR FOR BEHAVIORAL CHANGES. CONTINUE POC.
--- NOTE | 2018-05-21 17:39 | PN ---
PATIENT:LIZBETH DANIELSON MEDICAL RECORD: [id number] LOCATION:[facility] ADMISSION DATE: 05/17/18 PROGRESS NOTE DATE OF SERVICE: 05/20/2018 SUBJECTIVE: The patient's case was discussed with staff. She has no new complaint. OBJECTIVE: The patient is in good behavioral control with limited insight about her condition. She tolerates her medicines well. ASSESSMENT: No change in diagnoses. PLAN: Brief supportive and educational interventions were made. Long-term prognosis is guarded. TRANSINT:[id number] Voice Confirmation ID: [id number] DOCUMENT ID: [id number] NICOLASA NEFF MD at 1739 CC: [id number] DICTATION DATE: 05/20/18 1210 CRIME SPECIALIST: 05/20/18 1425 ADM IN [address] [address]
--- NOTE | 2018-05-22 01:09 | NUR ---
RECEIVED IN HALLWAY OUTSIDE OF NURSES STATION. WALKING THROUGH HALLS OF UNIT. CALM AND COOPERATIVE WITH CARE AND ASSESSMENT. CONFUSION. NO DELUSIONAL STATEMENTS MADE. NO SIGNS OF PARANOIA. REDIRECT AND REORIENT NEEDED. RESTING IN BED WITH EYES CLOSED AT THIS TIME. CONTINUE PLAN OF CARE.
[2018-05-22 08:00] VITALS: BP 161/66
--- NOTE | 2018-05-22 09:00 | NUR ---
ASSESSMENT COMPLETED. ORIENTED X 3. MEDICATION AND UNIT MILEAU COMPLIANT. NO DELUSIONS NOTED. CALM AND COOPERATIVE WITH CARE. WILL CONTINUE POC.
--- NOTE | 2018-05-22 15:11 | PN ---
PATIENT:LIZBETH DANIELSON MEDICAL RECORD: [id number] LOCATION:[facility] ADMISSION DATE: 05/17/18 PROGRESS NOTE DATE OF SERVICE: 05/21/2018 SUBJECTIVE: The patient's case was discussed with staff. She has no new complaint. OBJECTIVE: The patient denies intent to harm herself or others. She is generally tolerating her medicines well. She has been a little agitated today, but has been redirectable. ASSESSMENT: No change in diagnoses. PLAN: Current medicines have been reviewed and will be maintained. Long-term prognosis is guarded. TRANSINT:[id number] Voice Confirmation ID: [id number] DOCUMENT ID: [id number] NICOLASA NEFF MD at 1511 CC: [id number] DICTATION DATE: 05/21/18 175 SCIENTIFIC SOFTWARE ENGINEER: 05/21/18 2312 ADM IN [place] [id number] [place] [address]
[2018-05-22 19:31] VITALS: BP 141/75
--- NOTE | 2018-05-22 22:46 | NUR ---
RECEIVED IN PATIENT ROOM. GETTING READING FOR BED. CALM AND COOPERATIVE WITH CARE AND ASSESSMENT. CONFUSED. NO SIGNS OF PARANOIA. NO DELUSIONAL STATEMENTS MADE. REDIRECT AND REORIENT NEEDED. RESTING IN BED WITH EYES CLOSED AT THIS TIME. CONTINUE PLAN OF CARE.
[2018-05-23 09:28] VITALS: BP 148/83
--- NOTE | 2018-05-23 10:00 | NUR ---
RECEIVED IN HALLWAY WITH PEERS. AWAKE AND ORIENTED X 2. CALM AND COOPERATIVE WITH CARE AND ASSESSMENT. PROVIDE PRESCRIBE MEDICATIONS. COMPLIANT WITH MEDS AND UNIT MILIEU. REDIRECT AND REORIENT NEEDED. CONTINUE POC.
--- NOTE | 2018-05-23 10:48 | NUR ---
Nutrition Follow Up: Chart reviewed. Pt is eating 79% meal avg on a regular diet. +BM 05/20/18. Meds and labs reviewed. Pt continues at low nutritional risk. RD following.
--- NOTE | 2018-05-23 16:07 | PN ---
PATIENT:LIZBETH DANIELSON MEDICAL RECORD: [id number] LOCATION:[facility] ADMISSION DATE: 05/17/18 PROGRESS NOTE DATE OF SERVICE: 05/22/2018 SUBJECTIVE: The patient's case was discussed with staff. She has no new complaint. OBJECTIVE: The patient denies intent to harm herself or others. She generally tolerates her medicines well. ASSESSMENT: No change in diagnoses. PLAN: This patient is very confused. She has not been agitated. She clearly is in need of 99-jjmf-u-day supervision. TRANSINT:[id number] Voice Confirmation ID: [id number] DOCUMENT ID: [id number] NICOLASA NEFF MD at 1607 CC: [id number] DICTATION DATE: 05/22/18 1610 LEARNING DEVELOPER: 05/22/18 1756 ADM IN [place] [id number] [place] [address]
[2018-05-23 20:48] VITALS: BP 145/81
--- NOTE | 2018-05-23 23:30 | NUR ---
RECEIVED IN HALLWAY OUTSIDE OF NURSES STATION. SITTING IN CHAIR. SOCIALIZING WITH PEERS. CALM AND COOPERATIVE WITH CARE AND ASSESSMENT. NO PARANOIA. NO DELUSIONAL STATEMENTS MADE. REDIRECT AND REORIENT NEEDED. RESTING IN BED WITH EYES CLOSED AT THIS TIME. CONTINUE PLAN OF CARE.
[2018-05-24 10:01] VITALS: BP 123/77
--- NOTE | 2018-05-24 11:22 | NUR ---
B) The patient is labile, one minute she is pleasant and discussing positive things about life, but she can turn in seconds and discuss negative things. She does get with some of the men and women and try to manipulate and discuss negative things that make no sense, but it upsets everyone. She has to be reminded to stay in her ivory. I) Provide prescribed meds, Redirect to appropriate behavior. R) The patient is compliant with meds and unit milieu. She has made a statement a few minutes ago about her brother taking all of her money and even taking out money in advance before she gets it. She did get admitted for paranoia. P) Continue POC.
--- NOTE | 2018-05-24 14:42 | PN ---
PATIENT:LIZBETH DANIELSON MEDICAL RECORD: [id number] LOCATION:[facility] ADMISSION DATE: 05/17/18 PROGRESS NOTE DATE OF SERVICE: 05/23/2018 SUBJECTIVE: The patient's case was discussed with staff. She has no new complaint. OBJECTIVE: The patient is in good behavioral control with limited insight about her condition. She is clearly quite confused and is in need of 29-uukk-w-day supervision. ASSESSMENT: No change in diagnoses. PLAN: Supportive and educational interventions were made. Long-term prognosis is guarded. TRANSINT:[id number] Voice Confirmation ID: [id number] DOCUMENT ID: [id number] NICOLASA NEFF MD at 1442 CC: [id number] DICTATION DATE: 05/23/18 1625 BUS SYSTEM OPERATOR: 05/23/18 2332 ADM IN [place] [id number] [place] [address]
[2018-05-24 19:56] VITALS: BP 171/76
--- NOTE | 2018-05-24 20:37 | NUR ---
B) Quiet, guarded, no self-disclosures. No paranoid statements made, in hallway watching others, does not engage in conversation. I) Administer medications as ordered, redirect and reorient as needed. R) Compliant with medications, sad, flat affect. P) Continue to monitor per plan of care.
[2018-05-25 08:00] VITALS: BP 129/78
--- NOTE | 2018-05-25 13:45 | NUR ---
B) The patient khadijah and nikky. She speaks to everyone in the room that will listen and she says a lot, but she is speaking to people that do not understand. She is talking to one of the patient's right now about insurance and that patient could care less about insurance, but they are being polite. She ambulates independently. I) Provide prescribed meds. R) The patient is compliant with meds. P) Continue POC.
--- NOTE | 2018-05-25 15:20 | PN ---
PATIENT:LIZBETH DANIELSON MEDICAL RECORD: [id number] LOCATION:[facility] ADMISSION DATE: 05/17/18 PROGRESS NOTE DATE OF SERVICE: 05/24/2018 SUBJECTIVE: The patient's case was discussed with staff. She has no new complaint. OBJECTIVE: The patient is in good behavioral control with limited insight about her condition. She tolerates her medicines well. She is clearly severely impaired cognitively and is in need of 35-bpae-i-day supervision. She has also had some intermittent mood lability, which I am going to address with Depakote. ASSESSMENT: No change in diagnoses. PLAN: The patient is going to be started on Depakote at a dose of 250 mg twice daily. TRANSINT:[id number] Voice Confirmation ID: [id number] DOCUMENT ID: [id number] NICOLASA NEFF MD at 1520 CC: [id number] DICTATION DATE: 05/24/18 1510 CAN CRIMPER: 05/24/18 1916 ADM IN [facility] [address] [place] [address]
[2018-05-25 20:54] VITALS: BP 126/65
--- NOTE | 2018-05-26 07:45 | NUR ---
B) The patient is pleasant and interacting well with her peers, she is hyperverbal and talks to them about nonsensical stuff. She is intelligent and has vast knowledge about many subjects. I) Provide prescribed meds, Redirect to unit milieu. R) The patient is compliant to take her medications. P) Continue POC.
[2018-05-26 09:17] VITALS: BP 137/93
--- NOTE | 2018-05-26 09:25 | NUR ---
The patient is negative in her statements saying negative things about the staff and she is beginning to say it to other patient's and she is manipulating them to follow her. Did have to separate her from one of the other patient's.
--- NOTE | 2018-05-26 10:04 | PN ---
PATIENT:LIZBETH DANIELSON MEDICAL RECORD: [id number] LOCATION:[facility] ADMISSION DATE: 05/17/18 PROGRESS NOTE DATE OF SERVICE: 05/25/2018 SUBJECTIVE: The patient's case was discussed with staff. She has no new complaint. OBJECTIVE: The patient has been successfully started on Depakote. I do not think there is much change in her mood lability, but the initial doses have been tolerated well and I would anticipate increasing those soon. ASSESSMENT: No change in diagnoses. PLAN: Current medicines and therapies will be maintained. TRANSINT:[id number] Voice Confirmation ID: [id number] DOCUMENT ID: [id number] NICOLASA NEFF MD at 1004 CC: [id number] DICTATION DATE: 05/25/18 1525 CIRCULATION ASSISTANT: 05/25/18 1559 ADM IN [facility] [address] [place] [address]
[2018-05-26 20:00] VITALS: BP 123/63
--- NOTE | 2018-05-26 21:21 | NUR ---
PATIENT IS LABLILE, INTRUSIVE, HAS TO BE REDIRECTED AT TIMES. COMPLIANT WITH MEDS. NO ADVERSE REACTION NOTED.
--- NOTE | 2018-05-27 08:30 | NUR ---
RECEIVED IN DINING ROOM WITH PEERS. AWAKE AND ALERT, CALM AND COOPERATIVE WITH CARE AND ASSESSMENT. PLEASANT AND INTERACTING WITH PEERS IN CONVERSATION. PROVIDE PRESCRIBED MEICATIONS AND UNIT MILIEU. REDIRECT AND REORIENT NEEDED. CONTINUE PLAN OF CARE.
[2018-05-27 08:59] VITALS: BP 165/91
--- NOTE | 2018-05-27 13:57 | PN ---
PATIENT:LIZBETH DANIELSON MEDICAL RECORD: [id number] LOCATION:[facility] ADMISSION DATE: 05/17/18 PROGRESS NOTE DATE OF SERVICE: 05/26/2018 SUBJECTIVE: The patient's case was discussed with staff. She has no new complaint. OBJECTIVE: The patient is severely impaired cognitively, but has not been aggressive in any significant way. ASSESSMENT: No change in diagnoses. PLAN: Supportive and educational interventions were made. Long-term prognosis is guarded. TRANSINT:[id number] Voice Confirmation ID: [id number] DOCUMENT ID: [id number] NICOLASA NEFF MD at 1357 CC: [id number] DICTATION DATE: 05/26/18 1102 FACILITY ADMINISTRATOR: 05/26/18 1210 ADM IN [place] [id number]
[2018-05-27 18:17] VITALS: BP 152/74
--- NOTE | 2018-05-27 18:43 | NUR ---
PATIENT IS QUIET AND TEARFUL TONIGHT, STAYING TO HERSELF, WHEN SHE IS LOOKED AT SHE LOOKS AWAY, COMPLIANT WITH MEDS, NO ADVERSE REACTION NOTED. WILL FOLLOW POC
[2018-05-28 08:04] VITALS: BP 108/68
--- NOTE | 2018-05-28 09:00 | NUR ---
SHE IS PLEASANT AND SOCIABLE WITH PEERS. CALM AND COOPERATIVE WITH STAFF. COMPLIANT WITH TAKING MEDICATIONS. WILL CONTINUE POC.
--- NOTE | 2018-05-28 16:20 | PN ---
PATIENT:LIZBETH DANIELSON MEDICAL RECORD: [id number] LOCATION:[facility] ADMISSION DATE: 05/17/18 PROGRESS NOTE DATE OF SERVICE: 05/27/2018 SUBJECTIVE: The patient's case was discussed with staff. She has no new complaint. OBJECTIVE: The patient ate well yesterday. She also slept well last night. She is partially oriented today with a euthymic mood and an appropriate affect. She has not been aggressive or delusional today. ASSESSMENT: No change in diagnoses. PLAN: Current medicines and therapies have been reviewed and will be maintained. Long-term prognosis is guarded. Brief supportive and educational interventions were made. TRANSINT:[id number] Voice Confirmation ID: [id number] DOCUMENT ID: [id number] NICOLASA NEFF MD at 1620 CC: [id number] DICTATION DATE: 05/27/18 1403 BIOMEDICAL REPAIR TECHNICIAN: 05/27/18 1608 ADM IN [place] [address] [place] [address]
[2018-05-28 20:40] VITALS: BP 154/67
--- NOTE | 2018-05-29 00:30 | NUR ---
RECEIVED IN PATIENT ROOM. GETTING READY FOR BED. CALM AND COOPERATIVE WITH CARE AND ASSESSMENT. NO SIGNS OF PARANOIA. NO DELUSIONAL STATEMENTS MADE. REDIRECT AND REORIENT NEEDED. RESTING IN BED WITH EYES CLOSED AT THIS TIME. CONTINUE PLAN OF CARE.
[2018-05-29 08:00] VITALS: BP 133/75
--- NOTE | 2018-05-29 10:18 | NUR ---
Nutrition Follow Up: Chart reviewed. Pt is eating 96% meal avg on a regular diet. +BM 05/26/18. Meds and labs reviewed. Pt continues at low nutritional risk. RD following.
--- NOTE | 2018-05-29 10:30 | NUR ---
B) SHE IS SOCIALBE AND PLEASANT TODAY. QUIET AND SIT TO HERSELF WATCHING TV AT [employer]. CALM AND COOPERATIVE WITH CARE AND ASSESSMENT. I) PROVIDE PRESCRIBED MEDICATIONS. SMILING MORE TODAY. REDIRECT NEEDED. R) COMPLIANT WITH MEDICATIONS AND UNIT MILIEU. NO DELUSIONS OR PARANOIA NOTED. P) MONITOR FOR BEHAVIOR CHANGES AND CONTINUE POC.
--- NOTE | 2018-05-29 15:55 | PN ---
PATIENT:LIZBETH DANIELSON MEDICAL RECORD: [id number] LOCATION:[facility] ADMISSION DATE: 05/17/18 PROGRESS NOTE DATE OF SERVICE: 05/28/2018 SUBJECTIVE: The patient's case was discussed with staff. She has no new complaint. OBJECTIVE: The patient denies intent to harm herself or others. She tolerates her medicines well. Eye contact is fair. ASSESSMENT: No change in diagnoses. PLAN: Current medicines have been reviewed and will be maintained. Long-term prognosis is guarded. I anticipate she can be transitioned out of the hospital soon and placement is being sought. TRANSINT:[id number] Voice Confirmation ID: [id number] DOCUMENT ID: [id number] NICOLASA NEFF MD at 1555 CC: [id number] DICTATION DATE: 05/28/18 1644 TRAVELING REPRESENTATIVE: 05/28/18 1748 ADM IN [facility] [address] [place] [address]
[2018-05-29] MEDS ORDERED: Depakote DR PO (16:17)
[2018-05-29] MEDS ORDERED: PERPHENAZINE2 MG PO (16:17)
[2018-05-29] MEDS ORDERED: Aricept PO (16:17)
[2018-05-29 19:34] VITALS: BP 112/64
--- NOTE | 2018-05-30 04:47 | NUR ---
RECEIVED IN DAYROOM. SITTING IN CHAIR AND SOCIALIZING WITH PEERS. CALM AND COOPERATIVE WITH CARE AND ASSESSMENT. NO PARANOIA OR DELUSIONS. REDIRECT AND REORIENT NEEDED. RESTING IN BED WITH EYES CLOSED AT THIS TIME. CONTINUE PLAN OF CARE.
--- NOTE | 2018-05-30 07:30 | NUR ---
REC'D PT IN HALLWAY SOCIALIZING WITH PEERS. PT AWAKE AND ORIENTED TO PERSON AND PLACE. CALM AND COOPERATIVE WITH ASSESSMEN. PRESCRIBED MEDS PROVIDED. MED COMPLIANT. REDIRECT AND REORIENT NEEDED. FALL PRECAUTIONS IN PLACE. WILL CONTINUE TO MONITOR Q 15 MINUTES FOR SAFETY. WILL CPOC.
[2018-05-30 08:00] VITALS: BP 115/81
--- NOTE | 2018-05-30 12:06 | PN ---
PATIENT:LIZBETH DANIELSON MEDICAL RECORD: [id number] LOCATION:[facility] ADMISSION DATE: 05/17/18 PROGRESS NOTE DATE OF SERVICE: 05/29/2018 SUBJECTIVE: The patient's case was discussed with staff. She has no new complaint. OBJECTIVE: The patient is in good behavioral control with limited insight about her condition. She does tolerate her medicines well. Eye contact is fair. The patient has significantly and serious cognitive impairments, consistent with an advanced dementia. There is no evidence of acute dangerousness and she is in need of 46-nepx-h-day supervision. ASSESSMENT: No change in diagnoses. PLAN: The patient will be transitioned out of the hospital into the [facility] tomorrow. Her long-term prognosis is guarded. TRANSINT:[id number] Voice Confirmation ID: [id number] DOCUMENT ID: [id number] NICOLASA NEFF MD at 1206 CC: [id number] DICTATION DATE: 05/29/18 1615 SPECIAL SERVICES COORDINATOR: 05/29/[address] [facility] [address] [place] [address]
--- NOTE | 2018-05-30 14:00 | NUR ---
PT DC TO [facility]. PT IN STABLE CONDITION AT TIME OF DC. ALL PAPERWORK FAXED AND COPY SENT WITH PT. NO S/SX OF DISTRESS NOTED.
--- NOTE | 2018-06-01 15:16 | DS ---
PATIENT:LIZBETH DANIELSON :54 MEDICAL RECORD: [id number] DISCHARGE SUMMARY ADMISSION DATE: 05/17/18 DISCHARGE DATE: 05/30/18 PSYCHIATRIC DISCHARGE SUMMARY IDENTIFYING DATA: The patient is 67 years old and she was admitted to the hospital on a voluntary basis because of confusion. The patient lives in the [facility] and has a landlord or some management person and authority at the [facility] who discovered her in the apartment confused and had her brought to the hospital. She apparently was admitted and I was subsequently consulted. The patient had no objective explanation for what could have happened that caused the confusion. When I initially saw her, she was uncooperative, angry and saying very bizarre delusional things. She was subsequently transferred to the behavioral unit for further evaluation and treatment. HOSPITAL COURSE: The patient was admitted to the hospital and fully evaluated from both a medical, psychological, and social standpoint. She was found to have clear evidence of a significant dementia and was started on memory enhancing medications. She did show significant improvement through the course of the hospitalization, indicating that there are or were other factors complicating this presentation, although they still remain a mystery. She had no evidence of acute neurologic event. She has no evidence of a substance abuse or alcoholism or mistaking or over-taking any other kind of medicine, so the dramatic change between when she presented and when she was discharged is unknown. Nevertheless, if this is her baseline, it is still impaired and she clearly has evidence of dementia and based upon her history of hypertension, I think it is probably a vascular dementia. DISCHARGE DIAGNOSES: AXIS I: Vascular dementia. AXIS II: None. AXIS III: Hypertension. AXIS IV: Moderate stressors. AXIS V: Global assessment of functioning is 40. PLAN: At the time of discharge, the patient was in good behavioral control. She has pretty limited insight about her condition. She is to have follow up with her primary care physician and her family is going to monitor and care for her. TRANSINT:[id number] Voice Confirmation ID: [id number] DOCUMENT ID: [id number] NICOLASA NEFF MD at 1516 CC: [id number] DICTATION DATE: 05/31/18 1603 NATURAL RESOURCES ENGINEER: 06/01/18 0727 DIS IN 05/30/18 [facility] [address] [place] [address]
== END 2018-05-30 14:00 | DRG 57 ==
LOC: D.PSYCH 17:41
PROVIDERS: ADMIT Psychiatry & Neurology Psychiatry
DX: G30.9 Alzheimer's disease, unspecified (principal); F02.81 Dementia in other diseases classified elsewhere, unspecified severity, with behavioral disturbance; F01.51 Vascular dementia, unspecified severity, with behavioral disturbance; I10 Essential (primary) hypertension; F32.9 Major depressive disorder, single episode, unspecified; Z91.81 History of falling

== ENCOUNTER 2018-07-12 18:11 | Inpatient (IN) | payer MEDICARE ==
[~2018-07-12] VITALS: Ht 165.1 cm; Wt 62.1 kg
--- NOTE | ~2018-07-12 | PN ---
PATIENT:LIZBETH DANIELSON MEDICAL RECORD: [id number] LOCATION:[facility] ADMISSION DATE: 07/12/18 PROGRESS NOTE DATE OF SERVICE: 07/28/2018 SUBJECTIVE: Ms. Danielson is a 67-year-old female who was at [facility], pacing, depressed, tearful, threatening to leave the penitentiary, although she presents very well superficially, the patient has significant memory deficits. Her brother has been working on discharge disposition and it appears to be very soon she is apparently going back to [place]. On interview, patient is calm, pleasant and appropriate. She cannot quite come up with my name despite multiple days of interviews. She is eating 120% and 100%. Last bowel movement on and slept 8 hours. ASSESSMENT: Unchanged. PLAN: Await discharge disposition back to [facility]. The patient appears to be stable on current treatment regimen. TRANSINT:[id number] Voice Confirmation ID: [id number] DOCUMENT ID: [id number] EHSAN GONZALES MD CC: [id number] DICTATION DATE: 07/28/18 1427 FIRE MANAGER: 07/28/18 2254 ADM IN [place] [id number] [place] [id number]
[~2018-07-12 18:11] MED LIST changes: +Aricept PO; +Depakote DR PO; +PERPHENAZINE2 MG PO
[2018-07-12] MEDS ORDERED: ACETAMINOPHEN325 MG PO (18:24)
[2018-07-12] MEDS ORDERED: LEXAPRO10 MG PO (18:25)
[2018-07-12 19:55] VITALS: BP 166/70; BMI 22.8
[2018-07-12 19:56] VITALS: BP 166/70
[2018-07-13 07:41] LABS: ALBUMIN 3.6 g/dL (3.4-5.0); ALKALINE PHOSPHATASE 52 U/L (46-116); ALT (SGPT) 17 U/L (10-68); BILIRUBIN - TOTAL 0.66 mg/dL (0.2-1.3); CALC OSMOLALITY 282 mosm/kg (275-300); CALCIUM 8.7 mg/dL (8.5-10.1); CARBON DIOXIDE 32.2 mmol/L (21.0-32.0); CHLORIDE - SERUM 102 mmol/L (98-107); CHOL - HDL RATIO 3.8 ratio (2.3-4.1); CHOLESTEROL, TOTAL 214 mg/dL (0-200); CREATININE - SERUM 0.7 mg/dL (0.6-1.3); GLUCOSE 80 mg/dL (74-106); HDL CHOLESTEROL 56 mg/dL (32-96); LDL CHOLESTEROL 142 mg/dL (0-100); LDL-HDL RATIO 2.5 ratio (1.5-3.5); PROTEIN - SERUM 6.8 g/dL (6.4-8.2); SODIUM 143 mmol/L (136-145); TRIGLYCERIDE 84 mg/dL (30-200); UREA NITROGEN 9 mg/dL (7-18); VALPROIC ACID (DEPAKOTE) 55.3 ug/mL (50.0-100.0); eGFR NON AFRICAN AMERICAN 89 mL/min (90-120)
[2018-07-13 08:09] LABS: BASOPHILS 1.1 % (0-2); EOSINOPHILS 7.3 % (0-7); HEMATOCRIT 45.3 % (36.0-48.0); LYMPHOCYTES 29.5 % (15-50); MCH 28.2 pg (26.0-34.0); MCHC 33.1 g/dL (31.0-37.0); MCV 85.2 fL (80.0-100.0); MEAN PLATELET VOLUME 10.2 fL (7.4-10.4); MONOCYTES 9.3 % (2-11); NEUTROPHILS 52.8 % (40-80); PLATELET COUNT 192 10x3/uL (130-400); RBC 5.32 10x6/uL (4.00-5.40); RDW 13.9 % (11.5-14.5); WBC 4.6 10x3/uL (4.8-10.8)
[2018-07-13 09:50] LABS: APPEARANCE CLEAR (CLEAR); BILIRUBIN NEGATIVE (NEGATIVE); COLOR YELLOW (YELLOW); GLUCOSE NEGATIVE (NEGATIVE); KETONE NEGATIVE (NEGATIVE); NITRITE NEGATIVE (NEGATIVE); PROTEIN NEGATIVE (NEGATIVE); UROBILINOGEN NORMAL (NORMAL)
[2018-07-13 10:37] VITALS: BP 126/63
[2018-07-13 11:07] VITALS: BMI 22.8
[2018-07-13 13:50] VITALS: BMI 22.7
[2018-07-13 20:15] VITALS: BP 136/69
[2018-07-14 07:26] LABS: RAPID PLASMA REAGIN Non Reactive (Non Reactive)
[2018-07-14 08:12] VITALS: BP 129/72
--- NOTE | 2018-07-14 08:39 | PSY ---
PATIENT NAME:LIZBETH DANIELSON MEDICAL RECORD: [id number] : 54 LOCATION:[facility] ADMISSION DATE: 07/12/18 ACCOUNT: [id number] PSYCHIATRIC EVALUATION DATE OF EVALUATION: 07/13/18 PSYCHIATRIC EVALUATION IDENTIFYING DATA: The patient is 67 years old and she is known to me from previous clinical contact. She has been living in the [facility], where she has been quite agitated. CHIEF COMPLAINT: None. HISTORY OF PRESENT ILLNESS: The patient is reporting delusional thought content about her brother, saying that he is continuing to steal from her. There is no evidence of this. 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 She is going to return to this hospital in [place], but she cannot even remember the name of the hospital. She is clearly very impaired cognitively. She is also very agitated. She has almost no insight about her situation. PAST MEDICAL HISTORY: Significant for hypertension. PAST PSYCHIATRIC HISTORY: Significant for previous stay here in May. She has no other psychiatric history, but since she has developed the dementia, she has been significantly impaired and agitated. She had previously been living in an apartment here, but was unable to do so because of her dementia. FAMILY HISTORY: Significant for dementia, but is otherwise negative. ALLERGIES: SULFA. CURRENT MEDICATIONS: Include Lexapro, Depakote, Aricept, and lisinopril. SOCIAL HISTORY: The patient has never been and has no children. 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 She denies any history of drug or alcohol abuse. MENTAL STATUS EXAMINATION: The patient is awake; alert; and oriented to person and place, but not to time or situation. Her mood is anxious. Her affect is constricted. Thought processes are circumstantial. Memory, concentration, and abstraction abilities are at least moderately impaired. She denies that she would seek to harm herself or others as well as overt psychotic symptoms. ASSETS: Supportive family members. LIABILITIES: Limited insight. DIAGNOSTIC IMPRESSION: AXIS I: Vascular dementia. AXIS II: None. AXIS III: Hypertension. AXIS IV: Moderate stressors. AXIS V: Global assessment of functioning is 40. PLAN: At this time, the patient will be admitted to the hospital secondary to confusion and psychotic symptoms associated with a dementing illness. She will be treated with both mood stabilizing and memory enhancing medications. Her long-term prognosis is guarded. TRANSINT:[id number] Voice Confirmation ID: [id number] DOCUMENT ID: [id number] NICOLASA NEFF MD at 0839 CC: [id number] DICTATION DATE: 07/13/18 1541 SPRING FLOOR SERVICE WORKER: 07/13/18 1820 ADM IN [facility] [address] [place] [id number]
[2018-07-14 11:10] LABS: FOLATE (FOLIC ACID) - SERUM 16.7 ng/mL (>3.0)
[2018-07-14 20:04] VITALS: BP 143/79
[2018-07-15 08:00] VITALS: BP 130/88
--- NOTE | 2018-07-15 11:37 | PN ---
PATIENT:LIZBETH DANIELSON MEDICAL RECORD: [id number] LOCATION:[facility] ADMISSION DATE: 07/12/18 PROGRESS NOTE DATE OF SERVICE: 07/14/2018 SUBJECTIVE: The patient's case was discussed with staff. She has no new complaint. OBJECTIVE: The patient denies intent to harm herself or others. She does tolerate her medicines well. She is disorganized and delusional, believing that she needs to return to the hospital in [place] and resume working there which is obviously not realistic. ASSESSMENT: Vascular dementia. PLAN: The patient is in need of 16-ioxy-e-day supervision. She is not showing any evidence of depression or self-harm. She is lacking almost any insight about her condition and her ability to work and live independently. TRANSINT:[id number] Voice Confirmation ID: [id number] DOCUMENT ID: [id number] NICOLASA NEFF MD at 1137 CC: [id number] DICTATION DATE: 07/14/18 0845 BARREL LAPPER: 07/14/18 0857 ADM IN [place] [id number] [place] [id number]
[2018-07-15 19:28] VITALS: BP 111/50
--- NOTE | 2018-07-16 15:58 | PN ---
PATIENT:LIZBETH DANIELSON MEDICAL RECORD: [id number] LOCATION:[facility] ADMISSION DATE: 07/12/18 PROGRESS NOTE DATE OF SERVICE: 07/15/2018 SUBJECTIVE: The patient's case was discussed with staff. She has no new complaint. OBJECTIVE: The patient has a depressed mood, but no thoughts of self-harm. She has pretty limited insight about her condition. ASSESSMENT: No change in diagnoses. PLAN: The patient will be treated with Depakote at a higher dose of 500 mg twice daily. TRANSINT:[id number] Voice Confirmation ID: [id number] DOCUMENT ID: [id number] NICOLASA NEFF MD at 1558 CC: [id number] DICTATION DATE: 07/15/18 1155 CHIEF TECHNICIAN X RAY: 07/15/18 1243 ADM IN [place] [id number] [place] [address]
[2018-07-16 20:54] VITALS: BP 133/67
[2018-07-17 08:30] VITALS: BP 134/79
--- NOTE | 2018-07-17 12:58 | PN ---
PATIENT:LIZBETH DANIELSON MEDICAL RECORD: [id number] LOCATION:[facility] ADMISSION DATE: 07/12/18 PROGRESS NOTE DATE OF SERVICE: 07/16/2018 SUBJECTIVE: The patient's case was discussed with staff. She has no new complaint. OBJECTIVE: The patient denies intent to harm herself or others. She has almost no recollection about events from day to day. She is very disorganized. ASSESSMENT: Vascular dementia. PLAN: The patient's brother is her POA. We are going to advise him that she needs a more restrictive correction than the [facility]. There may be one closer to him then to [place]. Indeed that may be preferable that she be placed close to him so that it would be easier to visit. The patient does not like this. She says that she has a job waiting for her, which is just frankly delusional. TRANSINT:[id number] Voice Confirmation ID: [id number] DOCUMENT ID: [id number] NICOLASA NEFF MD at 1258 CC: [id number] DICTATION DATE: 07/16/18 1630 SANDER SETTER: 07/16/18 1859 ADM IN [facility] [address] [place] [address]
[2018-07-17 19:58] VITALS: BP 128/81
[2018-07-18 08:30] VITALS: BP 132/82
[2018-07-18 10:51] VITALS: Ht 165.1 cm; Wt 62.1 kg
--- NOTE | 2018-07-18 16:32 | PN ---
PATIENT:LIZBETH DANIELSON MEDICAL RECORD: [id number] LOCATION:[facility] ADMISSION DATE: 07/12/18 PROGRESS NOTE DATE OF SERVICE: 07/17/2018 SUBJECTIVE: The patient's case was discussed with staff. She has no new complaint. OBJECTIVE: The patient is tolerating her medicines well, but she is very impaired cognitively and has almost no insight about her situation. ASSESSMENT: Vascular dementia. PLAN: Current medicines have been reviewed and will be maintained. Her long-term prognosis is guarded. Supportive and educational interventions were made. TRANSINT:[id number] Voice Confirmation ID: [id number] DOCUMENT ID: [id number] NICOLASA NEFF MD at 1632 CC: [id number] DICTATION DATE: 07/17/181999 ACADEMIC SUPPORT COORDINATOR: 07/18/18 0129 ADM IN [place] [id number] [place] [address]
[2018-07-18 20:20] VITALS: BP 138/73
[2018-07-19 10:19] VITALS: BP 147/69
--- NOTE | 2018-07-19 15:31 | PN ---
PATIENT:LIZBETH DANIELSON MEDICAL RECORD: [id number] LOCATION:[facility] ADMISSION DATE: 07/12/18 PROGRESS NOTE DATE OF SERVICE: 07/18/2018 SUBJECTIVE: The patient's case was discussed with staff. She has no new complaint. OBJECTIVE: The patient has almost no short-term memory. 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 She has virtually no short term memory. ASSESSMENT: Vascular dementia. PLAN: The patient is going to be given Namenda at a dose of 5 mg twice daily to assist with her cognitive impairment. Her long-term prognosis is guarded. She clearly needs 38-winq-d-day supervision and our 7th grade social studies teacher in conjunction with her brother is working on that. TRANSINT:[id number] Voice Confirmation ID: [id number] DOCUMENT ID: [id number] NICOLASA NEFF MD at 1531 CC: [id number] DICTATION DATE: 07/18/18 170 CARPENTER REPAIRER: 07/18/18 1950 ADM IN [facility] [address] [place] [address]
[2018-07-19 19:42] VITALS: BP 137/72
[2018-07-20 09:25] VITALS: BP 133/77
--- NOTE | 2018-07-20 12:31 | PN ---
PATIENT:LIZBETH DANIELSON MEDICAL RECORD: [id number] LOCATION:[facility] ADMISSION DATE: 07/12/18 PROGRESS NOTE DATE OF SERVICE: 07/19/2018 SUBJECTIVE: The patient's case was discussed with staff. She has no new complaint. OBJECTIVE: The patient denies intent to harm herself or others. She is generally tolerating her medications well. Her Depakote level was therapeutic at 55, a week ago. I am going to ask for another Depakote level. She has not been aggressive. She is eating and sleeping marginally well. ASSESSMENT: Vascular dementia. PLAN: Depakote level will be checked. The patient will be maintained on current medications. Her long-term prognosis is guarded. TRANSINT:[id number] Voice Confirmation ID: [id number] DOCUMENT ID: [id number] NICOLASA NEFF MD at 1231 CC: [id number] DICTATION DATE: 07/19/18 1629 BESSEMER REGULATOR: 07/19/18 2346 ADM IN [place] [id number] [place] [address]
[2018-07-20 20:06] VITALS: BP 127/63
[2018-07-21 08:39] VITALS: BP 139/72
[2018-07-21 20:57] VITALS: BP 127/68
[2018-07-22 20:23] VITALS: BP 134/76
[2018-07-23 07:53] VITALS: BP 151/79
[2018-07-23 22:18] VITALS: BP 133/70
[2018-07-24 08:47] VITALS: BP 135/82
--- NOTE | 2018-07-24 16:25 | PN ---
PATIENT:LIZBETH DANIELSON MEDICAL RECORD: [id number] LOCATION:[facility] ADMISSION DATE: 07/12/18 PROGRESS NOTE DATE OF SERVICE: 07/21/2018 SUBJECTIVE: Ms. Danielson is a 67-year-old female that was already at 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 On my interview with her today, she is calmer. She seems to be agitated because she thinks she has been told for the first time that she has dementia. She knew it was July and it was [facility]'s Day and was able to tell me that it is 07/20/2018. She did not know the day of the week. She thought it was in the . She did know the President was Trump. She is interacting with peers somewhat, but her judgment and insight are limited. She is eating 25%, 75%, and 90% of meals. Last bowel movement was 15th. Slept 7.75. OBJECTIVE: LATEST VITAL SIGNS: 97.9, 89, 18, 139/72, and 96%. ASSESSMENT: Unchanged. PLAN: Continue current treatment plan. Namenda is being titrated up for behavioral agitation. Case discussed with nursing. Chart reviewed. The patient interviewed. TRANSINT:[id number] Voice Confirmation ID: [id number] DOCUMENT ID: [id number] EHSAN GONZALES MD at 1625 CC: [id number] DICTATION DATE: 07/21/18 1449 SCREW MACHINE TENDER: 07/21/18 2249 ADM IN [place] [place] [address]
--- NOTE | 2018-07-24 16:25 | PN ---
PATIENT:LIZBETH DANIELSON MEDICAL RECORD: [id number] LOCATION:[facility] ADMISSION DATE: 07/12/18 PROGRESS NOTE DATE OF SERVICE: 07/23/2018 SUBJECTIVE: Ms. Danielson is a 67-year-old female who was at [facility]. She was pacing, depressive, irritable, threatening to leave prison. She clearly has cognitive deficits and has been diagnosed with dementia before. On interview, she is irritable, continues to be upset about what she says is a recent dementia diagnosis. Apparently discharge is slightly tricky as the patient owes 15,000 dollars at her last facility. ASSESSMENT: Unchanged. PLAN: Await response to recent medicine changes to get some decrease in irritability and agitation, slight aggression at times. Case discussed with the treatment team. Chart reviewed and the patient interviewed. TRANSINT:[id number] Voice Confirmation ID: [id number] DOCUMENT ID: [id number] EHSAN GONZALES MD at 1625 CC: [id number] DICTATION DATE: 07/23/18 1246 DISTANCE LEARNING COORDINATOR: 07/23/18 1259 ADM IN [facility] [address] [place] [address]
[2018-07-24 19:49] VITALS: BP 125/65
[2018-07-25 08:12] VITALS: BP 140/84
[2018-07-25 19:53] VITALS: BP 139/68
[2018-07-26 10:06] VITALS: BP 169/75
[2018-07-26] MEDS ORDERED: Aricept PO (16:08)
[2018-07-26] MEDS ORDERED: DEPAKOTE500 MG PO (16:09)
[2018-07-26] MEDS ORDERED: NAMENDA5 MG PO (16:09)
[2018-07-26] MEDS ORDERED: LEXAPRO20 MG PO (16:09)
[2018-07-26] MEDS ORDERED: VITAMIN D5000 UNIT PO (16:10)
--- NOTE | 2018-07-26 16:13 | PN ---
PATIENT:LIZBETH DANIELSON MEDICAL RECORD: [id number] LOCATION:[facility] ADMISSION DATE: 07/12/18 PROGRESS NOTE DATE OF SERVICE: 07/24/2018 SUBJECTIVE: Ms. Danielson is a 67-year-old female who had been pacing, depressed, tearful, threatening to leave the group home. This is at least her second admission where it was advised that she be put in a group home, she went home with her brother, went to [facility], but brother had not filed for Medicaid, placement is now an issue now and as the patient has been paranoid about brother until today, acting on her behalf has been difficult. However, she is less paranoid now, allowing him to act on her behalf. He is looking at other facilities. On interview, she is calm, pleasant. Cognitively impaired that she seems to think that she has only been diagnosed with dementia recently. She is eating 100% to 110%. Last bowel movement on the 17, slept 8 hours. OBJECTIVE: VITAL SIGNS: 98.1, 73, 20, 135/82, and 97%. ASSESSMENT: Unchanged. PLAN: Await discharge disposition. The patient's medications appear to be stable. Last Depakote level 81.6. Case discussed with nursing. Chart reviewed. The patient interviewed. TRANSINT:[id number] Voice Confirmation ID: [id number] DOCUMENT ID: [id number] EHSAN GONZALES MD at 1613 CC: [id number] DICTATION DATE: 07/24/18 174 PRACTICE MANAGEMENT CONSULTANT: 07/24/18 2303 ADM IN [place] [id number] [place] [id number]
--- NOTE | 2018-07-26 16:13 | PN ---
PATIENT:LIZBETH DANIELSON MEDICAL RECORD: [id number] LOCATION:[facility] ADMISSION DATE: 07/12/18 PROGRESS NOTE DATE OF SERVICE: 07/25/2018 SUBJECTIVE: Ms. Danielson is a 67-year-old female who has been to this unit for dementia. She had become pacing, depressed, tearful, threatening to leave [facility] and also had a 15,000 dollars debt there. She was brought back to the unit. The patient had gotten upset several days ago after what she thought was being told she had dementia for the first time, although it certainly was not. She also been paranoid about her brother until recently and now they met yesterday. She states that he is a great brandon and paranoia has seemed to diminish. He is supposed to be looking at [facility] for her today. She is eating 100%, 95%, and 100%. Last bowel movement 17th. Sleeping 8.75 hours. OBJECTIVE: VITAL SIGNS: Her latest vitals are temperature 98.1, pulse 68, respirations 16, blood pressure 140/84, and oxygen saturation 96%. ASSESSMENT: Unchanged. PLAN: We will anticipate discharge as soon as a custodial acceptance. We will decrease her vitamin D from 10,000 to 5000 units, now that she has some loading doses. Case discussed with treatment team. Chart reviewed and the patient interviewed. TRANSINT:[id number] Voice Confirmation ID: [id number] DOCUMENT ID: [id number] EHSAN GONZALES MD at 1613 CC: [id number] DICTATION DATE: 07/25/18 1350 VP PUBLIC RELATIONS: 07/25/18 1522 ADM IN [place] [id number] [place] [id number]
[2018-07-27 09:15] VITALS: BP 141/84
[2018-07-27 20:40] VITALS: BP 122/58
[2018-07-28 08:00] VITALS: BP 128/80
--- NOTE | 2018-07-28 12:52 | PN ---
PATIENT:LIZBETH DANIELSON MEDICAL RECORD: [id number] LOCATION:[facility] ADMISSION DATE: 07/12/18 PROGRESS NOTE DATE OF SERVICE: 07/26/2018 SUBJECTIVE: Ms. Danielson is a 67-year-old female who was admitted after pacing depression, tearful, threatening to leave the correction, and in point of fact having owe the correction 15,000 dollars as well. Her brother was given a choice of either paying [facility] the 15,000 that was owed or submitting paperwork to [facility]. However, when he went to [place], he refused to give some of the papers and we have informed him that he needs to either do this or take the patient home on his own. OBJECTIVE: The patient has been calm and appropriate. She superficially is very good; however, anything beyond a superficial conversation, her memory deficits are clear. She is eating 100% and 195%. Last bowel movement on 17. Slept 8.25 hours. Physical examination: Her latest vitals are temperature 98.6, pulse 60, respirations 18, blood pressure 169/75, and oxygen saturation 99%. ASSESSMENT: Unchanged. PLAN: Anticipate discharge tomorrow. Discharge orders completed. Case discussed with treatment team. Chart was reviewed and the patient interviewed. TRANSINT:[id number] Voice Confirmation ID: [id number] DOCUMENT ID: [id number] EHSAN GONZALES MD at 1252 CC: [id number] DICTATION DATE: 07/26/18 1616 EQUINE VET: 07/26/18 2227 ADM IN [place] [id number] [place] [address]
--- NOTE | 2018-07-28 12:52 | PN ---
PATIENT:LIZBETH DANIELSON MEDICAL RECORD: [id number] LOCATION:[facility] ADMISSION DATE: 07/12/18 PROGRESS NOTE DATE OF SERVICE: 07/27/2018 SUBJECTIVE: Ms. Danielson is a 67-year-old female with dementia, who had waiting on placement. Apparently, she is going back to [facility] and all that is lacking is one piece of paper; however, [facility] considering the past history insists on this being completed. Social work has been working with her brother to get paperwork in place. Unfortunately, the patient is simply unable to safely live on her own. She is eating 120% to 100%. Last bowel movement on the . Sleeping 8.75 hours. She is calm and cooperative. OBJECTIVE: LATEST VITAL SIGNS: 98.2, 70, 18, 141/84, and 95%. ASSESSMENT: Unchanged. PLAN: Await discharge disposition to [facility]. Case discussed with nursing. Chart reviewed and patient interviewed. TRANSINT:[id number] Voice Confirmation ID: [id number] DOCUMENT ID: [id number] EHSAN GONZALES MD at 1252 CC: [id number] DICTATION DATE: 07/27/18 1450 EMAIL MANAGER: 07/27/18 3477 ADM IN [place] [address] [place] [address]
[2018-07-28 20:52] VITALS: BP 143/72
[2018-07-29 07:43] VITALS: BP 145/75
[2018-07-29 20:24] VITALS: BP 132/78
[2018-07-30 07:29] VITALS: BP 155/73
--- NOTE | 2018-07-30 13:16 | PN ---
PATIENT:LIZBETH DANIELSON MEDICAL RECORD: [id number] LOCATION:[facility] ADMISSION DATE: 07/12/18 PROGRESS NOTE DATE OF SERVICE: 07/20/2018 SUBJECTIVE: The patient's case was discussed with staff. She has no new complaint. OBJECTIVE: The patient denies intent to harm herself or others. She is tolerating her medicines well. She is severely impaired intellectually. ASSESSMENT: Vascular dementia. PLAN: Brief supportive and educational interventions were made. The patient's medicines have been reviewed. She will be maintained on them and if this level of improvement continues, I anticipate she can be transitioned out of the hospital in a few days. TRANSINT:[id number] Voice Confirmation ID: [id number] DOCUMENT ID: [id number] NICOLASA NEFF MD at 1316 CC: [id number] DICTATION DATE: 07/20/18 1344 FACILITY SERVICE MANAGER: 07/20/18 1428 ADM IN [place] [place] [address]
--- NOTE | 2018-07-31 06:47 | PN ---
PATIENT:LIZBETH DANIELSON MEDICAL RECORD: [id number] LOCATION:[facility] ADMISSION DATE: 07/12/18 PROGRESS NOTE DATE OF SERVICE: 07/30/2018 SUBJECTIVE: The patient's case was discussed with staff. She has no new complaint. OBJECTIVE: The patient is quite impaired with pretty limited insight about her situation. ASSESSMENT: Vascular dementia. PLAN: The patient will have a Depakote level ordered for today. Her long-term prognosis is guarded. TRANSINT:[id number] Voice Confirmation ID: [id number] DOCUMENT ID: [id number] NICOLASA NEFF MD at 0647 CC: [id number] DICTATION DATE: 07/30/181744 EXTERMINATOR TERMITE: 07/30/182013 ADM IN [facility] [address] [place] [address]
[2018-07-31 07:47] VITALS: BP 152/72
--- NOTE | 2018-08-01 13:52 | PN ---
PATIENT:LIZBETH DANIELSON MEDICAL RECORD: [id number] LOCATION:[facility] ADMISSION DATE: 07/12/18 PROGRESS NOTE DATE OF SERVICE: 07/31/2018 SUBJECTIVE: The patient's case was discussed with staff. She has no new complaint. OBJECTIVE: The patient denies intent to harm herself or others. She is tolerating her medicines well. ASSESSMENT: Vascular dementia. PLAN: The patient will be transitioned out of the hospital soon. She is going to go to the [facility]. TRANSINT:[id number] Voice Confirmation ID: [id number] DOCUMENT ID: [id number] NICOLASA NEFF MD at 1352 CC: [id number] DICTATION DATE: 07/31/18 0732 SALES PROJECT MANAGER: 07/31/18 1120 DIS IN 07/31/18 [place] [address] [place] [address]
== END 2018-07-31 13:05 | DRG 57 ==
LOC: D.PSYCH 18:11
PROVIDERS: ADMIT Psychiatry & Neurology Psychiatry; ATTEND Psychiatry & Neurology Psychiatry
DX: G30.9 Alzheimer's disease, unspecified (principal); F02.81 Dementia in other diseases classified elsewhere, unspecified severity, with behavioral disturbance; F01.51 Vascular dementia, unspecified severity, with behavioral disturbance; I10 Essential (primary) hypertension; F32.9 Major depressive disorder, single episode, unspecified; Z91.81 History of falling; E55.9 Vitamin D deficiency, unspecified; E78.5 Hyperlipidemia, unspecified

== ENCOUNTER 2018-09-04 16:30 | Inpatient (IN) | payer MEDICARE ==
[~2018-09-04] VITALS: Ht 165.1 cm; Wt 70.0 kg
[~2018-09-04 16:30] MED LIST changes: +ACETAMINOPHEN325 MG PO; +DEPAKOTE500 MG PO; +LEXAPRO10 MG PO; +NAMENDA5 MG PO; +VITAMIN D5000 UNIT PO
--- NOTE | 2018-09-04 16:30 | NUR ---
PT ADMITTED TO [facility]. PT IS UNDER 72 HOUR HOLD UNDER APS. TAISHA RIVERA GAVE VERBAL CONSENT. [employer] APS. PT IS FULL CODE. PT IS VERY LIABLE AT THIS TIME. PT CAN BE VERY DEMANDING WITH STAFF. PT. SITTING IN DAYROOM WITH HEAD DOWN. WILL CONTINUE TO MONITOR Q 15 MINUTES FOR SAFETY. WILL CPOC.
[2018-09-04 20:21] VITALS: BP 134/80
[2018-09-04 21:41] VITALS: BP 183/75; BMI 22.8
--- NOTE | 2018-09-05 03:00 | NUR ---
RECEIVED IN DAYROOM. WATCHING TV. CALM AND COOPERATIVE WITH CARE AND ASSESSMENT. EXPRESSED ANGRY FEELINGS ABOUT BEING BACK ON A PSYCH FLOOR. REDIRECT AND REORIENT NEEDED. RESTING IN BED WITH EYES CLOSED AT THIS TIME. CONTINUE PLAN OF CARE.
--- NOTE | 2018-09-05 07:30 | NUR ---
REC'D PT IN HALLWAY WITH PEERS. AWAKE AND ALERT TO PERSON. CALM AND COOPERATIVE WITH ASSESSMENT. NO AGGRESSION NOTED. MED COMPLIANT. REDIRECT AND REORIENT NEEDED. FALL PRECAUTIONS IN PLACE. WILL CPOC.
[2018-09-05 08:19] VITALS: BP 174/73
[2018-09-05 10:10] VITALS: BMI 22.7
[2018-09-05 11:56] LABS: BASOPHILS 0.6 % (0-2); EOSINOPHILS 2.9 % (0-7); HEMATOCRIT 44.5 % (36.0-48.0); HEMOGLOBIN 15.2 g/dL (12-16); IMMATURE GRANULOCYTES 0.3 % (0-5); LYMPHOCYTES 22.7 % (15-50); MCH 29.5 pg (26.0-34.0); MCHC 34.2 g/dL (31.0-37.0); MCV 86.4 fL (80.0-100.0); MEAN PLATELET VOLUME 9.6 fL (7.4-10.4); MONOCYTES 7.7 % (2-11); NEUTROPHILS 65.8 % (40-80); PLATELET COUNT 161 10x3/uL (130-400); RBC 5.15 10x6/uL (4.00-5.40); RDW 13.5 % (11.5-14.5); WBC 3.1 10x3/uL (4.8-10.8)
[2018-09-05 12:03] LABS: ALBUMIN 3.6 g/dL (3.4-5.0); ALKALINE PHOSPHATASE 45 U/L (46-116); ALT (SGPT) 45 U/L (10-68); BILIRUBIN - TOTAL 0.89 mg/dL (0.2-1.3); CALC OSMOLALITY 279 mosm/kg (275-300); CARBON DIOXIDE 31.9 mmol/L (21.0-32.0); CHLORIDE - SERUM 102 mmol/L (98-107); CHOL - HDL RATIO 3.1 ratio (2.3-4.1); CHOLESTEROL, TOTAL 202 mg/dL (0-200); CREATININE - SERUM 0.6 mg/dL (0.6-1.3); GLUCOSE 81 mg/dL (74-106); HDL CHOLESTEROL 66 mg/dL (32-96); LDL CHOLESTEROL 127 mg/dL (0-100); LDL-HDL RATIO 1.9 ratio (1.5-3.5); PROTEIN - SERUM 6.8 g/dL (6.4-8.2); SODIUM 141 mmol/L (136-145); THYROID STIMULATING HORMONE 1.42 uIU/mL (0.36-3.74); TRIGLYCERIDE 49 mg/dL (30-200); UREA NITROGEN 12 mg/dL (7-18); eGFR NON AFRICAN AMERICAN > 90 mL/min (90-120)
[2018-09-05 20:04] VITALS: BP 149/82
--- NOTE | 2018-09-05 20:29 | NUR ---
RECEIVED IN DAYROOM. SOCIALIZING WITH PEERS. CALM AND COOPERATIVE WITH CARE AND ASSESSMENT. CONFUSED. AGITATED AT TIMES. REDIRECT AND REORIENT NEEDED. CONTINUES TO SOCIALIZE WITH PEERS AT THIS TIME. CONTINUE PLAN OF CARE.
[2018-09-06 07:23] LABS: RAPID PLASMA REAGIN Non Reactive (Non Reactive); VITAMIN D 25 HYDROXY 56.8 ng/mL (30.0-100.0)
--- NOTE | 2018-09-06 09:28 | NUR ---
RECEIVED PATIENT IN DINING ROOM FOR B'FAST, ALERT, ISOLATES SELF AWAY FROM GROUP, REFUSED B'FAST, CALM, ANGRY, QUITE CONFUSED. MEDS ADMIN PER ORDERS WITH COMPLETE MED COMPLIANCE NOTED. NO AGGRESSION NOTED. CONT POC INCLUDING MEDS AND GROUP THERAPY DIRECTED.
[2018-09-06 11:11] LABS: FOLATE (FOLIC ACID) - SERUM >20.0 ng/mL (>3.0)
[2018-09-06 12:10] VITALS: Ht 165.1 cm; Wt 70.0 kg
--- NOTE | 2018-09-06 13:19 | NUR ---
PATIENT AGITATED AND ARGUMENTAIVE WITH STAFF.
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
[2018-09-06 19:51] VITALS: BP 138/58
--- NOTE | 2018-09-07 04:56 | NUR ---
B) Patient is alert and oriented to person and place, social and friendly toward staff and peers, I) Administered scheduled medications as ordered, monitored for safety, R) Mediation compliant, dramatic at times, P) Continue plan of care.
[2018-09-07 09:00] VITALS: BP 147/94
[2018-09-07 09:32] VITALS: BP 147/94
--- NOTE | 2018-09-07 10:26 | NUR ---
RECEIVED PATIENT IN DINING ROOM FOR B'FAST, ALERT, CALM, CONFUSED. REFUSED BREAKFAST SAYING THAT WAS NOT WHAT SHE ORDERED. HOWEVER, WHEN REMINDED THAT PATIENT HAD COMPLETED HER OWN MENU FOR TODAY, PATIENT BECAME ANGRY AND STORMED OUT OF THE DINING ROOM AND SAT IN DAYROOM AND BEGAN TO POUT. PATIENT TENDS TO COMPLIAN ABOUT ALMOST EVERYTHING INCLUDING HER CLOTHING, FOOD, AND OTHER BASIC NEEDS. MEDS ADMIN PER ORDERS WITH COMPLETE MED COMPLIANCE. COOPERATIVE WITH GROUP AND STAFF REQUESTS AT TIMES. HOWEVER, AT OTHER TIMES, PATIENT IS QUITE UNCOOPERATIVE. CONT POC INCLUDING MEDS AND GROUP THERAPY DIRECTED.
--- NOTE | 2018-09-07 12:02 | PN ---
PATIENT:LIZBETH DANIELSON MEDICAL RECORD: [id number] LOCATION:[facility] ADMISSION DATE: 09/04/18 PROGRESS NOTE DATE OF SERVICE: 09/06/2018 SUBJECTIVE: The patient's case was discussed with staff. She has no new complaint. OBJECTIVE: The patient denies intent to harm herself or others. She generally tolerates her medicines well. She has very poor insight about her situation. She is only partially oriented. ASSESSMENT: Vascular dementia. PLAN: Current medicines and therapies will be maintained. Supportive and educational interventions were made. The patient's affidavit for court has been completed and it has been sent to adult protective services who will be presenting it to the instructor of education for guardianship. Unfortunately, the least restrictive environment appears to be a jail and the patient has almost no insight about her impairment and is very argumentative about circumstances. TRANSINT:[id number] Voice Confirmation ID: [id number] DOCUMENT ID: [id number] NICOLASA NEFF MD at 1202 CC: [id number] DICTATION DATE: 09/06/18 1553 PHYSICIAN OFFICE REP: 09/06/18 1602 ADM IN [facility] [address] [place] [address]
[2018-09-07 20:28] VITALS: BP 122/75
--- NOTE | 2018-09-07 21:48 | NUR ---
PATIENT PICKED UP PER AMBULANCE TO BE TRANSFERRED TO ANOTHER FACILITY. PATIENT IN NO DISTRESS, BELONGINGS WERE GIVEN TO AMBULANCE STAFF. PAPERWORK GIVEN TO AMBULANCE STAFF.
--- NOTE | 2018-09-07 21:50 | NUR ---
ABOVE NOTE WRITTEN IN ERROR. PATIENT IS NOT DISCHARGED
[2018-09-08 08:56] VITALS: BP 167/73
--- NOTE | 2018-09-08 10:20 | PN ---
PATIENT:LIZBETH DANIELSON MEDICAL RECORD: [id number] LOCATION:[facility] ADMISSION DATE: 09/04/18 PROGRESS NOTE DATE OF SERVICE: 09/07/2018 SUBJECTIVE: The patient's case was discussed with staff. She has no new complaint. OBJECTIVE: The patient is angry and frustrated. She continues to have virtually no insight about her situation. She is confused and delusional in ways that I have previously documented. It is my understanding that the court process is continuing and it is my recommendation that she is in need of guardianship and 76-azdk-k-day supervision. ASSESSMENT: Vascular dementia. PLAN: I am going to start the patient on a low dose of an antidepressant. Hopefully, it will help her with this very difficult adjustment. Her dementia is fairly advanced. Unfortunately, she is only 67 years old. PROGNOSIS: Guarded. TRANSINT:[id number] Voice Confirmation ID: [id number] DOCUMENT ID: [id number] NICOLASA NEFF MD at 1020 CC: [id number] DICTATION DATE: 09/07/18 1232 ELECTRICAL & INSTRUMENTATION SUPERVISOR: 09/07/18 1317 ADM IN [facility] [address] [place] [address]
--- NOTE | 2018-09-08 18:45 | NUR ---
IS ORIENTED TO SELF ,HOSPITAL,AND YEAR ONLY.POOR INSITE TO WHY SHE IS HERE.HAS TO BE WATCHED TO PREVENT CHEEKING OF MEDS.WILL CONTINUE WITH PLAN OF CARE,MONITOR FOR SAFETY AND CHANGES.
[2018-09-08 20:12] VITALS: BP 148/71
--- NOTE | 2018-09-09 07:30 | NUR ---
PT IS ALERT AND ORIENTED TO PERSON AND TIME. CALM AND COOPERATIVE WITH ASSESSMENT. REDIRECT AND REORIENT NEEDED. MED COMPLIANT. PT IS VERY CONFUSED THIS AM. FALL PRECAUTIONS IN PLACE. WILL CPOC.
[2018-09-09 08:29] VITALS: BP 146/94
--- NOTE | 2018-09-09 10:56 | PN ---
PATIENT:LIZBETH DANIELSON MEDICAL RECORD: [id number] LOCATION:[facility] ADMISSION DATE: 09/04/18 PROGRESS NOTE DATE OF SERVICE: 09/08/2018 SUBJECTIVE: The patient's case was discussed with staff. She has no new complaint. OBJECTIVE: The patient denies intent to harm herself or others. She tolerates her medicines well. She is still impaired and believes that her brother is stealing from her. She has had the situation regarding guardianship, adult protective services, and intermediate placement explained to her multiple times. She does not remember it from day to day and then she just argues the same point over and over. I see no reason to continue to upset her on a daily basis with this misguided hope that somehow she is going to remember it and accept it. At this point, we are waiting for adult protective services to take custody of her and she will be unfortunately placed in a intermediate. TRANSINT:[id number] Voice Confirmation ID: [id number] DOCUMENT ID: [id number] NICOLASA NEFF MD at 1056 CC: [id number] DICTATION DATE: 09/08/18 1140 LEAD ELECTRICIAN: 09/08/18 1154 ADM IN [facility] [address] [place] [address]
[2018-09-09 17:08] LABS: APPEARANCE CLEAR (CLEAR); BILIRUBIN NEGATIVE (NEGATIVE); COLOR YELLOW (YELLOW); GLUCOSE NEGATIVE (NEGATIVE); KETONE NEGATIVE (NEGATIVE); NITRITE NEGATIVE (NEGATIVE); PROTEIN NEGATIVE (NEGATIVE); SPECIFIC GRAVITY 1.005 (1.005-1.020); UROBILINOGEN NORMAL (NORMAL)
[2018-09-09 19:29] VITALS: BP 141/70
--- NOTE | 2018-09-09 21:43 | NUR ---
PATIENT IS COOPERATVE BUT IS STAYING TO HERSELF MORE ON THIS ADMISSION COMPARED TO PREVIOUS ADMISSIONS, SHE IS COMPLIANT WITH MEDS, MAKES NEEDS KNOWN. WILL FOLLOW POC
--- NOTE | 2018-09-10 07:30 | NUR ---
REC'D PT IN HALLWAY IN WITH PEERS. CALM AND COOPERATIVE WITH ASSESSMENT. PT IS VERY CONFUSED. PT IS ALERT AND ORIENTED TO PERSON AMD PLACE. REDIRECT AND REORIENT NEEDED. MED COMPLIANT. WILL CPOC.
[2018-09-10 08:12] VITALS: BP 135/81
--- NOTE | 2018-09-10 11:07 | NUR ---
Nutrition Follow Up: Chart reviewed Diet: Regular PO Intake: 62% meal avg BM: 09/09/18 Meds and labs reviewed Rec continue current diet. Will continue to honor food preferences and will provide supplements prn. RD following.
--- NOTE | 2018-09-10 14:46 | PN ---
PATIENT:LIZBETH DANIELSON MEDICAL RECORD: [id number] LOCATION:[facility] ADMISSION DATE: 09/04/18 PROGRESS NOTE DATE OF SERVICE: 09/09/2018 SUBJECTIVE: The patient's case was discussed with staff. She has no new complaint. OBJECTIVE: The patient is in good behavioral control. She has poor insight about her condition. She has not been aggressive. ASSESSMENT: Vascular dementia. PLAN: Adult protective services is going to petition the court for guardianship and they will assist with long-term placement. TRANSINT:[id number] Voice Confirmation ID: [id number] DOCUMENT ID: [id number] NICOLASA NEFF MD at 1446 CC: [id number] DICTATION DATE: 09/09/18 113 PURCHASER: 09/09/181953 ADM IN [facility] [address] [place] [address]
[2018-09-10 19:53] VITALS: BP 109/52
--- NOTE | 2018-09-11 04:07 | NUR ---
RECEIVED IN PATIENT ROOM. SITTING UP IN BED. CALM AND COOPERATIVE WITH CARE AND ASSESSMENT. CONFUSED. NO ARGUMENTATIVE BEHAVIORS. REDIRECT AND REORIENT NEEDED. RESTING IN BED WITH EYES CLOSED AT THIS TIME. CONTINUE PLAN OF CARE.
[2018-09-11 07:00] VITALS: BP 134/91
--- NOTE | 2018-09-11 11:04 | NUR ---
Nutrition Follow up Spoke with pt about food preferences Added Ensure to all trays RD following
--- NOTE | 2018-09-11 12:44 | PN ---
PATIENT:LIZBETH DANIELSON MEDICAL RECORD: [id number] LOCATION:[facility] ADMISSION DATE: 09/04/18 PROGRESS NOTE DATE OF SERVICE: 09/10/2018 SUBJECTIVE: The patient's case was discussed with staff. She has no new complaint. OBJECTIVE: The patient is in good behavioral control with limited insight about her condition. She does tolerate her medicines well. ASSESSMENT: No change in diagnoses. PLAN: Both supportive and educational interventions were made. The patient's long-term prognosis is guarded. TRANSINT:[id number] Voice Confirmation ID: [id number] DOCUMENT ID: [id number] NICOLASA NEFF MD at 1244 CC: [id number] DICTATION DATE: 09/10/18 1635 VENUE MANAGER: 09/10/18 [address] [facility] [address] [place] [address]
[2018-09-11 19:38] VITALS: BP 130/72
--- NOTE | 2018-09-11 21:52 | NUR ---
RECEIVED IN PATIENT ROOM. CALM AND COOPERATIVE WITH CARE AND ASSESSMENT. CONFUSED. REDIRECT AND REORIENT NEEDED. RESTING IN BED WITH EYES CLOSED AT THIS TIME. CONTINUE PLAN OF CARE.
[2018-09-12 08:00] VITALS: BP 133/73
--- NOTE | 2018-09-12 10:00 | NUR ---
RECEIVED PATIENT IN DINING ROOM FOR B'FAST, ALERT, CALM, COOPERATIVE MOST OF THE TIME. HOWEVER, PATIENT CAN BE QUITE UNCOOPERATIVE AT TIMES. MEDS ADMIN PER ORDERS WITH COMPLETE MED COMPLIANCE NOTED. COOPERATIVE WITH GROUP THERAPY. CONT POC INCLUDING MEDS AND GROUP THERAPY DIRECTED.
--- NOTE | 2018-09-12 15:45 | PN ---
PATIENT:LIZBETH DANIELSON MEDICAL RECORD: [id number] LOCATION:[facility] ADMISSION DATE: 09/04/18 PROGRESS NOTE DATE OF SERVICE: 09/11/2018 SUBJECTIVE: The patient's case was discussed with staff. She has no new complaint. OBJECTIVE: The patient is disorganized with severe memory impairment. She has not been disruptive. ASSESSMENT: Vascular dementia. PLAN: Current medicines will be maintained. I anticipate the patient can be followed on an outpatient basis reasonably well. As soon as adult protective services completes the court hearing and she can be transferred to a [facility], she will be discharged. TRANSINT:[id number] Voice Confirmation ID: [id number] DOCUMENT ID: [id number] NICOLASA NEFF MD at 1545 CC: [id number] DICTATION DATE: 09/11/18 1548 PARK LANDSCAPE ARCHITECT: 09/11/18 1802 ADM IN [facility] [address] [place] [address]
[2018-09-12 22:21] VITALS: BP 116/58
--- NOTE | 2018-09-13 02:00 | NUR ---
RECEIVED IN DAYROOM. SITTING QUIETLY. CALM AND COOPERATIVE WITH CARE AND ASSESSMENT. CONFUSED. REDIRECT AND REORIENT NEEDED. RESTING IN BED WITH EYES CLOSED AT THIS TIME. CONTINUE PLAN OF CARE.
--- NOTE | 2018-09-13 08:46 | NUR ---
REC'D PT SITTING IN CHAIR WITH EYES OPEN. RESP EVEN AND NONLABORED. NO DISTRESS NOTED. CONFUSION NOTED. REORIENT AND REDIRECT NEEDED. PT AMBULATES PER SELF. WILL CONT TO MONITOR Q 15 MINS FOR SAFETY.
[2018-09-13 09:08] VITALS: BP 111/65
--- NOTE | 2018-09-13 13:26 | NUR ---
Nutrition Follow Up: Chart reviewed Diet: Regular; Ensure TID; Yogurt daily; Fruit TID PO Intake: 84% meal avg BM: 09/12/18 Meds and labs reviewed Rec continue current diet, supplement regimen. RD following.
--- NOTE | 2018-09-13 14:46 | PN ---
PATIENT:LIZBETH DANIELSON MEDICAL RECORD: [id number] LOCATION:[facility] ADMISSION DATE: 09/04/18 PROGRESS NOTE DATE OF SERVICE: 09/12/2018 SUBJECTIVE: The patient's case was discussed with staff. She has no new complaint. OBJECTIVE: The patient is in good behavioral control with limited insight about her condition. She tolerates her medicines well. ASSESSMENT: Vascular dementia. PLAN: I anticipate the patient to be transitioned out of the hospital soon. Her long-term prognosis is guarded. TRANSINT:[id number] Voice Confirmation ID: [id number] DOCUMENT ID: [id number] NICOLASA NEFF MD at 1446 CC: [id number] DICTATION DATE: 09/12/18 170 DAMAGE ASSESSOR: 09/12/182147 ADM IN [place] [address] [place] [address]
--- NOTE | 2018-09-13 18:32 | NUR ---
PT SITTING IN DAY AREA SOCIALIZING. RESP EVEN AND NONLABORED. NO ACUTE DISTRESS NOTED. CONFUSION NOTED. NO WANDERING NOTED. MED COMPLIANT. AMBULATES WELL. WILL CONT TO MONITOR Q 15 MINS FOR SAFETY.
--- NOTE | 2018-09-13 19:58 | NUR ---
RECEIVED IN DAYROOM. SOCIALIZING WITH PEERS. CALM AND COOPERATIVE WITH CARE AND ASSESSMENT. CONFUSED. REDIRECT AND REORIENT NEEDED. CONTINUES TO SOCIALIZE AT THIS TIME. CONTINUE PLAN OF CARE.
[2018-09-13 20:11] VITALS: BP 130/61
--- NOTE | 2018-09-14 07:37 | NUR ---
REC'D PT SITTING IN CHAIR SOCIALIZING WITH PEERS. RESP EVEN AND NONLABORED. NO ACUTE DISTRESS NOTED. CONFUSION NOTED. REDIRECT AND REORIENT NEEDED. NO BEHAVIORS NOTED AT THIS TIME. NO NEEDS/PAIN VOICED AT THIS TIME. WILL CONT PLAN OF CARE. WILL CONT TO MONITOR Q 15 MINS FOR SAFETY.
[2018-09-14 09:37] VITALS: BP 143/89
--- NOTE | 2018-09-14 15:55 | PN ---
PATIENT:LIZBETH DANIELSON MEDICAL RECORD: [id number] LOCATION:[facility] ADMISSION DATE: 09/04/18 PROGRESS NOTE DATE OF SERVICE: 09/13/2018 SUBJECTIVE: The patient's case was discussed with staff. She has no new complaint. OBJECTIVE: The patient denies intent to harm herself or others. She is tolerating her medicines well. ASSESSMENT: Vascular dementia. PLAN: The patient's Celexa will be increased to 20 mg daily. Long-term prognosis is guarded. TRANSINT:[id number] Voice Confirmation ID: [id number] DOCUMENT ID: [id number] NICOLASA NEFF MD at 1555 CC: [id number] DICTATION DATE: 09/13/18 1600 APPRENTICE ARCHITECT: 09/13/18 1652 ADM IN [place] [id number] [place] [address]
[2018-09-14 18:07] LABS: AEROBE ID Final report (())
[2018-09-14 19:47] VITALS: BP 119/60
--- NOTE | 2018-09-14 21:48 | NUR ---
PATIENT IS CALM, COOPERATIVE, FORGETFUL AT TIMES. COMPLIANT WITH MEDS, NO ADVERSE REACTION NOTED. WILL FOLLOW POC
[2018-09-15 08:04] VITALS: BP 147/89
--- NOTE | 2018-09-15 09:33 | NUR ---
RECEIVED PATIENT IN DINING ROOM FOR B'FAST, ALERT, CALM, COOPERATIVE, DELUSIONAL, CONFUSED, POOR STM. MEDS ADMIN PER ORDERS WITH COMPLETE MED COMPLIANCE NOTED. COOPERATIVE WITH GROUP AND STAFF. CONT POC INDLUDING MEDS AND GROUP THERAPY
--- NOTE | 2018-09-15 11:38 | PN ---
PATIENT:LIZBETH DANIELSON MEDICAL RECORD: [id number] LOCATION:[facility] ADMISSION DATE: 09/04/18 PROGRESS NOTE DATE OF SERVICE: 09/14/2018 SUBJECTIVE: The patient's case was discussed with staff. She has no new complaint. OBJECTIVE: The patient is eating adequately. She is sleeping well. She is severely impaired cognitively, but has been much less irritable and angry. ASSESSMENT: Vascular dementia. PLAN: The patient will be maintained on current medicines, which I have reviewed. Her long-term prognosis is guarded. TRANSINT:[id number] Voice Confirmation ID: [id number] DOCUMENT ID: [id number] NICOLASA NEFF MD at 1138 CC: [id number] DICTATION DATE: 09/14/18 1646 MICROBIOLOGY ANALYST: 09/14/18 2135 ADM IN [place] [id number] [place] [address]
--- NOTE | 2018-09-15 19:57 | NUR ---
PATIENT HAS TROUBLE REMEMBERING THINGS AT TIMES, INTERACTIVE WITH ONE OTHER PATIENT, COMPLIANT WITH MEDS, MAKES NEEDS KNOWN, SMILING MORE THIS WEEK COMPARED TO LAST WEEK. WILL FOLLOW POC
[2018-09-15 20:07] VITALS: BP 136/75
[2018-09-16 07:00] VITALS: BP 157/91
--- NOTE | 2018-09-16 10:10 | NUR ---
RECEIVED PATIENT IN DINING ROOM FOR B'FAST, ALERT, CALM, POOR MEMORY, PLEASANT, COOPERATIVE. MEDS ADMIN PER ORDERS WITH COMPLETE MED COMPLIANCE NOTED. COOPERATIVE WITH GROUP AND STAFF REQUESTS, QUITE PLEASANT. CONT POC INCLUDING MEDS AND GROUP THERAPY DIRECTED.
--- NOTE | 2018-09-16 10:17 | PN ---
PATIENT:LIZBETH DANIELSON MEDICAL RECORD: [id number] LOCATION:[facility] ADMISSION DATE: 09/04/18 PROGRESS NOTE DATE OF SERVICE: 09/15/2018 SUBJECTIVE: The patient's case was discussed with staff. She has no new complaint. OBJECTIVE: The patient denies intent to harm herself or others. She is tolerating her medicines well. She has not been aggressive. ASSESSMENT: No change in diagnoses. PLAN: Current medicines have been reviewed and will be maintained. Long-term prognosis is guarded. TRANSINT:[id number] Voice Confirmation ID: [id number] DOCUMENT ID: [id number] NICOLASA NEFF MD at 1017 CC: [id number] DICTATION DATE: 09/15/18 1157 MEDICAL ACCOUNTS RECEIVABLE SPECIALIST: 09/15/18 1237 ADM IN [facility] [address] [place] [address]
[2018-09-16 23:07] VITALS: BP 116/57
[2018-09-17 07:00] VITALS: BP 163/80
--- NOTE | 2018-09-17 10:00 | NUR ---
PATIENT AWAKE AND SOCIALIZING WITH PEERS. SOME CONFUSION NOTED. CALM AND COOPERATIVE WITH CARE AND ASSESSMENT. MEDICATION COMPLIANT. REDIRECT AND REORIENT NEEDED. CONTINUE PLAN OF CARE.
--- NOTE | 2018-09-17 13:45 | PN ---
PATIENT:LIZBETH DANIELSON MEDICAL RECORD: [id number] LOCATION:[facility] ADMISSION DATE: 09/04/18 PROGRESS NOTE DATE OF SERVICE: 09/16/2018 SUBJECTIVE: The patient's case was discussed with staff. She has no new complaint. OBJECTIVE: The patient is in good behavioral control with limited insight about her condition. She has no thoughts of harming herself or others. ASSESSMENT: Vascular dementia. PLAN: Brief supportive and educational interventions were made. Long-term prognosis is guarded. TRANSINT:[id number] Voice Confirmation ID: [id number] DOCUMENT ID: [id number] NICOLASA NEFF MD at 1345 CC: [id number] DICTATION DATE: 09/16/18 1036 PRODUCTION PLANNING MANAGER: 09/16/18 1404 ADM IN [place] [id number] [place] [address]
[2018-09-17 20:07] VITALS: BP 102/58
--- NOTE | 2018-09-17 23:04 | NUR ---
RECEIVED IN PATIENT ROOM. GETTING READY FOR BED. CALM AND COOERATIVE WITH CARE AND ASSESSMENT. CONFUSED. REDIRECT AND REORIENT NEEDED. RESTING IN BED WITH EYES CLOSED AT THIS TIME. CONTINUE PLAN OF CARE.
[2018-09-18 08:00] VITALS: BP 137/86
--- NOTE | 2018-09-18 09:00 | NUR ---
PATIENT IS AWAKE AND ALERT, WITH SOME CONFUSION NOTED. SHE SOCIALIZES WITH PEERS. CALM AND COOPERATIVE WITH CARE AND ASSESSMENT. MEDICATION COMPLIANT. AMBULATES INDEPENDENTLY, WILL CONTINUE POC.
--- NOTE | 2018-09-18 12:29 | NUR ---
Nutrition Follow Up: Chart reviewed Diet: Regular; Ensure TID PO Intake: 52% meal avg BM: 09/15/18 Meds and labs reviewed Rec continue current diet, supplement regimen. RD following.
--- NOTE | 2018-09-18 15:50 | PN ---
PATIENT:LIZBETH DANIELSON MEDICAL RECORD: [id number] LOCATION:[facility] ADMISSION DATE: 09/04/18 PROGRESS NOTE DATE OF SERVICE: 09/17/2018 SUBJECTIVE: The patient's case was discussed with staff. She has no new complaint. OBJECTIVE: The patient is in good behavioral control. She has limited insight about her condition. She tolerates her medicines well. ASSESSMENT: No change in diagnoses. PLAN: Brief supportive and educational interventions were made. Long-term prognosis is guarded. TRANSINT:[id number] Voice Confirmation ID: [id number] DOCUMENT ID: [id number] NICOLASA NEFF MD at 1550 CC: [id number] DICTATION DATE: 09/17/18 1548 GUIDE TRAVEL: 09/17/18 1755 ADM IN [place] [id number] [place] [address]
[2018-09-18 20:43] VITALS: BP 112/50
--- NOTE | 2018-09-18 21:15 | NUR ---
B) The patient is laying in bed. She did take her meds, she is pleasnt. She did not say anything negative. She is pleasnt. She knows her name, but not the place or time. I) Provide prescribed meds. R) The patient is compliant with meds and unit milieu. P) Continue POC.
--- NOTE | 2018-09-19 07:30 | NUR ---
PT IS AWAKE AND ALERT TO PERSON AND PLACE. CALM AND COOPERATIVE WITH ASSESSMENT. REDIRECT AND REORIENT NEEDED. MED COMPLIANT. NO AGGRESSION NOTED. FALL PRECAUTIONS IN PLACE. WILL CPOC.
[2018-09-19 08:25] VITALS: BP 146/62
--- NOTE | 2018-09-19 14:03 | PN ---
PATIENT:LIZBETH DANIELSON MEDICAL RECORD: [id number] LOCATION:[facility] ADMISSION DATE: 09/04/18 PROGRESS NOTE DATE OF SERVICE: 09/18/2018 SUBJECTIVE: The patient's case was discussed with staff. She has no new complaint. OBJECTIVE: The patient is eating and drinking reasonably well. She has very limited insight about her condition. She has severe cognitive impairment. She has not been significantly disruptive for several days now. ASSESSMENT: Vascular dementia. PLAN: Current medicines have been reviewed and will be maintained. I am going to increase the dose of her Aricept slightly. TRANSINT:[id number] Voice Confirmation ID: [id number] DOCUMENT ID: [id number] NICOLASA NEFF MD at 1403 CC: [id number] DICTATION DATE: 09/18/18 1454 REED WORKER: 09/18/18 1645 ADM IN [place] [id number] [place] [id number]
--- NOTE | 2018-09-19 21:03 | NUR ---
RECEIVED IN PATIENT ROOM. GETTING READY FOR BED. CALM AND COOPERATIVE WITH CARE AND ASSESSMENT. CONFUSED. REDIRECT AND REORIENT NEEDED. RESTING IN BED WITH EYES CLOSED AT THIS TIME. CONTINUE PLAN OF CARE.
--- NOTE | 2018-09-20 09:42 | NUR ---
RECEIVED PATIENT IN DINING ROOM FOR B'FAST, ALERT, CALM, COOPERATIVE, CONFUSED. MEDS ADMIN PER ORDERS WITH COMPLETE MED COMPLIANCE NOTED. COOPERATIVE WITH GROUP AND STAFF REQUESTS. CONT POC INCLUDING MEDS AND GROUP THERAPY DIRECTED.
[2018-09-20 12:51] VITALS: BP 122/71
--- NOTE | 2018-09-20 14:19 | PN ---
PATIENT:LIZBETH DANIELSON MEDICAL RECORD: [id number] LOCATION:[facility] ADMISSION DATE: 09/04/18 PROGRESS NOTE DATE OF SERVICE: 09/19/2018 SUBJECTIVE: The patient's case was discussed with staff. She has no new complaint. OBJECTIVE: The patient is pleasant. She is cooperative. She is tolerating her antidepressant medicine well and she is on a reasonable dose of Aricept. Adult protective services is intervening with her brother who is not completing the paperwork [facility] the jail that needs to be completed, so we can transfer her there. Her long-term prognosis is guarded. TRANSINT:[id number] Voice Confirmation ID: [id number] DOCUMENT ID: [id number] NICOLASA NEFF MD at 1419 CC: [id number] DICTATION DATE: 09/19/18 1442 CAUSTIC OPERATOR: 09/19/18 1634 ADM IN [facility] [address] [place] [address]
--- NOTE | 2018-09-20 19:03 | NUR ---
PLEASANTLY CONFUSED, HELPFUL AND POLITE. NO BEHAVIORAL ISSUES THIS SHIFT.
[2018-09-20 20:36] VITALS: BP 133/69
--- NOTE | 2018-09-21 03:53 | NUR ---
B) Patient is alert and oriented to person and place, pleasant and friendly toward staff and peers, I) Administered scheduled medications as ordered, monitored for safety R) Mediation compliant, calm and cooperative, P) Continue plan of care.
--- NOTE | 2018-09-21 05:15 | PN ---
PATIENT:LIZBETH DANIELSON MEDICAL RECORD: [id number] LOCATION:[facility] ADMISSION DATE: 09/04/18 PROGRESS NOTE DATE OF SERVICE: 09/20/2018 SUBJECTIVE: The patient's case was discussed with staff. She has no new complaint. OBJECTIVE: The patient is severely impaired cognitively. She has very limited insight about the situation. ASSESSMENT: Vascular dementia. PLAN: Brief supportive and educational interventions were made. Long-term prognosis is guarded. TRANSINT:[id number] Voice Confirmation ID: [id number] DOCUMENT ID: [id number] NICOLASA NEFF MD at 0515 CC: [id number] DICTATION DATE: 09/20/181658 AUTO REBUILDER: 09/20/18 194 ADM IN [place] [address] [place] [address]
--- NOTE | 2018-09-21 08:03 | NUR ---
B) The patient is awake and alert, she is positive and pleasant. She enjoys conversing with other staff. She ambulates independently. I) Provide prescribed meds, encourage groups and activities. R) The patient is compliant with meds and the unit milieu. P) Continue POC.
[2018-09-21 09:02] VITALS: BP 142/86
[2018-09-21 19:24] VITALS: BP 122/70
--- NOTE | 2018-09-22 00:40 | NUR ---
PATIENT IS COOPERATIVE, INTERACTS WITH CERTAIN OTHER RESIDENTS, SOMEWHAT GUARDED. COMPLIANT WITH MEDS. NO ADVERSE REACTION NOTED. WILL FOLLOW POC
[2018-09-22 09:14] VITALS: BP 140/96
--- NOTE | 2018-09-22 11:37 | NUR ---
B) The patient is awake and alert she is pleasant. Speaks postive to staff and peers. She is calm. She ambulates independently, she has a hard shoe brace on her right foot. I) Provide prescribed meds. R) The patient is compliant with meds and unit milieu. P) Continue POC.
--- NOTE | 2018-09-22 18:45 | PN ---
PATIENT:LIZBETH DANIELSON MEDICAL RECORD: [id number] LOCATION:[facility] ADMISSION DATE: 09/04/18 PROGRESS NOTE DATE OF SERVICE: 09/21/2018 SUBJECTIVE: The patient's case was discussed with staff. She has no new complaint. OBJECTIVE: The patient denies intent to harm herself or others. She is tolerating her medicines well. She is severely impaired cognitively. ASSESSMENT: Vascular dementia. PLAN: Supportive and educational interventions were made. Long-term prognosis is guarded. TRANSINT:[id number] Voice Confirmation ID: [id number] DOCUMENT ID: [id number] NICOLASA NEFF MD at 1845 CC: [id number] DICTATION DATE: 09/21/1838 AIR DUCT MECHANIC: 09/21/18 0858 ADM IN [facility] [address] [place] [address]
[2018-09-22 19:27] VITALS: BP 123/53
--- NOTE | 2018-09-22 20:37 | NUR ---
PATIENT IS CONFUSED AT TIMED, MAKES NEEDS KNOWN, INTERACTS WITH ONLY CERTAIN OTHER RESIDENTS, COMPLIANT WITH MEDS, NO ADVERSE REACTION NOTED. WILL FOLLOW POC
[2018-09-23 08:13] VITALS: BP 119/53
--- NOTE | 2018-09-23 09:53 | PN ---
PATIENT:LIZBETH DANIELSON MEDICAL RECORD: [id number] LOCATION:[facility] ADMISSION DATE: 09/04/18 PROGRESS NOTE DATE OF SERVICE: 09/22/2018 SUBJECTIVE: The patient's case was discussed with staff. She has no new complaint. OBJECTIVE: The patient denies intent to harm herself or others. She tolerates her medicines well. ASSESSMENT: Vascular dementia. PLAN: Current medicines have been reviewed and will be maintained. Long-term prognosis is guarded. TRANSINT:[id number] Voice Confirmation ID: [id number] DOCUMENT ID: [id number] NICOLASA NEFF MD at 0953 CC: [id number] DICTATION DATE: 09/22/181905 TRANSPORT TRUCK DRIVER: 09/23/[address] [facility] [address] [place] [address]
--- NOTE | 2018-09-23 11:42 | NUR ---
B) The patient is awake and alert, she is pleasant and calm. She is oriented to self only and she has poor insight into her situation. The patient is ambulating independently. She encouragers other peers and she is positive. I) Provide prescribed meds. R) The patient is compliant with meds and unit milieu. P) Continue POC.
--- NOTE | 2018-09-23 20:56 | NUR ---
PATIENT HAS TROUBLE REMEMBERING THINGS, CAN MAKE NEEDS KNOWN, COMPLIANT WITH MEDS. WILL FOLLOW POC
[2018-09-23 21:29] VITALS: BP 131/66
[2018-09-24 07:00] VITALS: BP 157/65
--- NOTE | 2018-09-24 13:39 | NUR ---
PATIENT IS AWAKE AND ALERT,BUT VERY PLEASANT. CALM AND COOPERATIVE WITH STAFF. AMBULATES INDEPENDENTLY. SHE IS MEDICATION COMPLIANT. SHE HAS SOME CONFUSION AT TIMES. WILL CONTINUE POC.
--- NOTE | 2018-09-24 15:33 | PN ---
PATIENT:LIZBETH DANIELSON MEDICAL RECORD: [id number] LOCATION:[facility] ADMISSION DATE: 09/04/18 PROGRESS NOTE DATE OF SERVICE: 09/23/2018 SUBJECTIVE: The patient's case was discussed with staff. She has no new complaint. OBJECTIVE: The patient is in good behavioral control with limited insight about her condition. She has not been aggressive. She is eating adequately and sleeping adequately. ASSESSMENT: Vascular dementia. PLAN: Current medicines and therapies have been reviewed, both will be maintained. Long-term prognosis is guarded. TRANSINT:[id number] Voice Confirmation ID: [id number] DOCUMENT ID: [id number] NICOLASA NEFF MD at 1533 CC: [id number] DICTATION DATE: 09/23/18 1032 LEAD MANUFACTURING TECHNICIAN: 09/23/181917 ADM IN [facility] [address] [place] [address]
[2018-09-24 20:12] VITALS: BP 157/78
--- NOTE | 2018-09-25 04:25 | NUR ---
RECEIVED IN DAYROOM. SOCIALIZING WITH PEERS. CALM AND COOPERATIVE WITH CARE AND ASSESSMENT. NO AGITATION. NO ARGUMENTATIVE BEHAVIORS. NO AGGRESSION. REDIRECT AND REORIENT NEEDED. RESTING IN BED WITH EYES CLOSED AT THIS TIME. CONTINUE PLAN OF CARE.
[2018-09-25 08:24] VITALS: BP 142/61
--- NOTE | 2018-09-25 09:19 | NUR ---
RECEIVED PATIENT IN DINING ROOM FOR B'FAST, ALERT, CALM, COOPERATIVE, QUITE PLEASANT. MEDS ADMIN PER ORDERS WITH COMPLETE MED COMPLIANCE NOTED. COOPERATIVE WITH GROUP AND STAFF REQUESTS. CONT POC INCLUDING MEDS AND GROUP THERAPY DIRECTED.
--- NOTE | 2018-09-25 13:00 | NUR ---
Nutrition follow up: Reviewed chart Regular diet with Ensure ordered Pt eating 67% of meals on average Weight 141.6lb RD following
--- NOTE | 2018-09-25 13:08 | PN ---
PATIENT:LIZBETH DANIELSON MEDICAL RECORD: [id number] LOCATION:[facility] ADMISSION DATE: 09/04/18 PROGRESS NOTE DATE OF SERVICE: 09/24/2018 SUBJECTIVE: The patient's case was discussed with staff. She has no new complaint. OBJECTIVE: The patient denies intent to harm herself or others. She is tolerating her medicines well. She is participating in treatment. She has not been disruptive to any appreciable degree. I think once arrangements have been made for discharge, she can reasonably be transitioned out of the hospital. TRANSINT:[id number] Voice Confirmation ID: [id number] DOCUMENT ID: [id number] NICOLASA NEFF MD at 1308 CC: [id number] DICTATION DATE: 09/24/18 1633 ARCH CUSHION PRESS OPERATOR: 09/24/18 1858 ADM IN [facility] [address] [place] [address]
[2018-09-25 20:09] VITALS: BP 136/70
--- NOTE | 2018-09-26 05:14 | NUR ---
RECEIVED IN DAYROOM. SOCIALIZING. CALM AND COOPERATIVE WITH CARE AND ASSESSMENT. CONFUSED. REDIRECT AND REORIENT NEEDED. RESTING IN BED WITH EYES CLOSED AT THIS TIME. CONTINUE PLAN OF CARE.
[2018-09-26 09:07] VITALS: BP 151/101
--- NOTE | 2018-09-26 11:06 | NUR ---
RECEIVED PATIENT IN DINING ROOM FOR B'FAST, ALERT, CALM, CONFUSED, COOPERATIVE. MEDS ADMIN PER ORDERS WITH COMPLETE MED COMPLIANCE NOTED. COOPERATIVE WITH GROUP ACTIVITIES AND STAFF REQUESTS. CONT POC DIRECTED.
--- NOTE | 2018-09-26 15:58 | PN ---
PATIENT:LIZBETH DANIELSON MEDICAL RECORD: [id number] LOC[facility] ADMISSION DATE: 09/04/18 PROGRESS NOTE DATE OF SERVICE: 09/25/2018 SUBJECTIVE: The patient's case was discussed with staff. She has no new complaint. OBJECTIVE: The patient is in good behavioral control. She is severely impaired cognitively, but has no thoughts of harming herself or others. ASSESSMENT: Vascular dementia. PLAN: I have reviewed her current medicines and will maintain them. I anticipate she can be transitioned out of the hospital soon. There are some issues regarding payment that have to be resolved between her brother, adult protective services, and the long-term. TRANSINT:[id number] Voice Confirmation ID: [id number] DOCUMENT ID: [id number] NICOLASA NEFF MD at 1558 CC: [id number] DICTATION DATE: 09/25/[address] TRUCK DRIVER: 09/25/18 1609 ADM IN [facility] [address] [place] [address]
[2018-09-26 22:17] VITALS: BP 168/98
--- NOTE | 2018-09-27 05:02 | NUR ---
RECEIVED IN HALLWAY OUTSIDE OF NURSES STATION. SOCIALIZING WHILE WAITING FOR PM MEDICATIONS. CALM AND COOPERATIVE WITH CARE AND ASSESSMENT. REDIRECT AND REORIENT NEEDED. RESTING IN BED WITH EYES CLOSED AT THIS TIME. CONTINUE PLAN OF CARE.
[2018-09-27 08:20] VITALS: BP 108/35
--- NOTE | 2018-09-27 12:47 | NUR ---
B) The patient c/o having migraines, she used to wear dark glasses, but she says she does not know where they are located now. Madeline Andrews APN did see her and address the issue with her. She is sitting at lunch eating and conversing and she is pleasant. She ambulates independently. I) Provide prescribed meds. R) The patient is compliant with meds and unit milieu. P) Continue POC.
--- NOTE | 2018-09-27 14:08 | PN ---
PATIENT:LIZBETH DANIELSON MEDICAL RECORD: [id number] LOCATION:[facility] ADMISSION DATE: 09/04/18 PROGRESS NOTE DATE OF SERVICE: 09/26/2018 SUBJECTIVE: The patient's case was discussed with staff. She has no new complaint. OBJECTIVE: The patient denies intent to harm herself or others. She is tolerating her medicines well. ASSESSMENT: Vascular dementia. PLAN: Current medicines and therapies have been reviewed and will be maintained. Long-term prognosis is guarded. TRANSINT:[id number] Voice Confirmation ID: [id number] DOCUMENT ID: [id number] NICOLASA NEFF MD at 1408 CC: [id number] DICTATION DATE: 09/26/18 1630 SENIOR VICE PRESIDENT AND CHIEF INFORMATION OFFICER: 09/26/18 2332 ADM IN [facility] [address] [place] [address]
[2018-09-27 20:03] VITALS: BP 132/73
--- NOTE | 2018-09-28 02:33 | NUR ---
B) Patient is alert and oriented to person, place and time, calm and cooperative I) Administered scheduled medications as ordered, monitored for safety R) Mediation compliant, pleasant and friendly P) Continue plan of care.
[2018-09-28 09:20] VITALS: BP 159/90
--- NOTE | 2018-09-28 10:46 | NUR ---
B) The patient is awake, alert, and pleasant. She interacts well with staff and peers. She ambulates independently. She is helpful to staff and peers and she is currently staying positive and upbeat and she can lead the patients in exercise groups. She is oriented to person and place, but she has poor insight into her situation. I) Provide prescribed meds. R) The patient is compliant with meds and unit milieu. P) Continue POC.
[2018-09-28 20:10] VITALS: BP 112/43
--- NOTE | 2018-09-29 04:58 | NUR ---
B) Patient is alert and oriented to person, place and time, calm and cooperative, takes care of herself, I) Administered scheduled medications as ordered, monitored for safety R) Mediation compliant, helps with other patients P) Continue plan of care.
[2018-09-29 07:30] VITALS: BP 111/80
--- NOTE | 2018-09-29 08:30 | NUR ---
RECEIVED PATIENT IN DINING ROOM FOR B'FAST, ALERT, CALM, COOPERATIVE, PLEASANT MOOD. MEDS ADMIN PER ORDERS WITH COMPLETE MED COMPLIANCE NOTED. COOPERATIVE WITH GROUP AND STAFF REQUESTS. NO BEHAVIORAL ISSUES NOTED THUS FAR THIS SHIFT.
--- NOTE | 2018-09-29 10:44 | NUR ---
The patient is c/o a migraine, she is holding her head. Did provide her Motrin, see MAR.
[2018-09-29 20:07] VITALS: BP 130/60
--- NOTE | 2018-09-29 23:44 | NUR ---
PATIENT IS COOPERATIVE, COMPLIANT WITH MEDS, CONFUSED, HAS TO BE REMINDED WHERE HER ROOM IS OFTEN, MAKES NEEDS KNOWN, WILL FOLLOW POC
[2018-09-30 07:00] VITALS: BP 154/78
--- NOTE | 2018-09-30 10:00 | NUR ---
RESTING QUIETLY IN CHAIR, ALERT, CALM, CONFUSED, PLEASANT MOOD. MEDS ADMIN PER ORDERS WITH COMPLETE MED COMPLIANCE NOTED. COOPERATIVE WITH GROUP AND STAFF REQUESTS. CONT POC DIRECTED.
[2018-09-30 19:59] VITALS: BP 104/41
--- NOTE | 2018-09-30 21:40 | NUR ---
PATIENT IS COOPERATIVE, COMPLIANT WITH MEDS, IMPAIRED MEMORY, MAKES NEEDS KNOWN, SHE IS BEING PATIENT WITH HER CARE AND HELPFUL AT TIMES WITH THE OTHER PATIENTS. WILL FOLLOW POC
[2018-10-01 08:29] VITALS: BP 135/34
--- NOTE | 2018-10-01 11:30 | NUR ---
PATIENT IS AWAKE AND ALERT. CALM AND COOPERATIVE WITH CARE AND ASSESSMENT. ADMINISTER PRESCRIBED MEDICATIONS AND MONITOR FOR SAFETY. SHE IS VERY PLEASANT AND FRIENDLY WITH PEERS AND STAFF. DENIES SI. CONTINUE POC.
[2018-10-01 22:23] VITALS: BP 117/60
--- NOTE | 2018-10-01 23:06 | NUR ---
RECEIVED IN PATIENT ROOM. GETTING READY FOR BED. CALM AND COOPERATIVE WITH CARE AND ASSESSMENT. NO AGGRESSION. NO ARGUMENTATIVE BEHAVIORS. REDIRECT AND REORIENT NEEDED. RESTING IN BED WITH EYES CLOSED AT THIS TIME. CONTINUE PLAN OF CARE.
--- NOTE | 2018-10-02 07:30 | NUR ---
REC'D PT IN HALLWAY SOCIALIZING WITH PEERS. CALM AND COOPERATIVE WITH ASSESSMENT. MED COMPLIANT. REDIRECT AND REORIENT NEEDED. FALL PRECAUTIONS IN PLACE. PT IS VERY PLEASANT. WILL CPOC.
[2018-10-02 08:00] VITALS: BP 143/71
--- NOTE | 2018-10-02 09:54 | NUR ---
Nutrition follow up: Reviewed chart Regular diet with 100% intake of most meals Food preferences noted Weight 140lb-no weight loss RD following
--- NOTE | 2018-10-02 15:04 | NUR ---
ROBERT SPOKE TO PT'S BROTHER, SUJIT, TO ALERT THAT [facility] HAS DENIED PT. ROBERT ALSO STATED SHE ASKED APS, TAISHA GOMEZ, TO GET BACK INVOLVED IN THE CASE TO SEE IF PLACEMENT COULD BE DONE SOONER. ROBERT ASKED PT'S BROTHER AND HE STATED HE TURNED IN ALL OF THE DOCUMENTS REQUESTED FOR PT TO BE PLACED AND ASSIGNED A MEDICAID BED. SW HAS ATTEMPTED TO PLACE PT BACK AT [facility] WITH DENIAL, [facility] STATED THEY WOULD RE-EVALUATE PT IF SHE WAS IN APS CUSTODY, AND [facility] STATED THEY CANNOT MEET PT'S NEEDS AT THIS TIME. ROBERT REVISTED PREVIOUS CONVERSTATIONS WITH PT'S BROTHER AND DISCUSSED THE IMPORTANCE OF FILLING OUT PPW CORRECTLY AND GIVING ALL DOCUMENTS THE JAIL REQUESTS. SUJIT VOICED UNDERSTANDING OF CONVERSATION.
--- NOTE | 2018-10-02 16:58 | PN ---
PATIENT:LIZBETH DANIELSON MEDICAL RECORD: [id number] LOCATION:[facility] ADMISSION DATE: 09/04/18 PROGRESS NOTE DATE OF SERVICE: 09/29/2018 HISTORY OF PRESENT ILLNESS: Ms. Danielson is a 67-year-old female who was admitted secondary to confusion. She had been allowed to sign herself out at [facility]. She went over to another [facility]. I think where she has been before and because of her confused behavior there, police were called and she was brought back in, as was the case last time. The patient's brother has been very slow about doing what he needs to do for transfer and it is believed that perhaps she has some memory issues as well as feeling overwhelmed with all this. APS had apparently dropped the patient in lieu of her brother's guardian. As per usual, on interview, she is calm, pleasant, very confused. She is eating 100%, last bowel movement on the 24th. Slept 5.25 hours. Vitals are 97.9, 68, 18, 111/80, and 97%. ASSESSMENT: Unchanged. PLAN: Continue to work with APS and referral out to another facility. It should be very clear that she should not be allowed to leave the facility on her own behest. Case discussed with nursing. Chart was reviewed and the patient interviewed. TRANSINT:[id number] Voice Confirmation ID: [id number] DOCUMENT ID: [id number] EHSAN GONZALES MD at 1658 CC: [id number] DICTATION DATE: 09/29/18 1321 HIGH SCHOOL COUNSELOR: 09/30/18 0009 ADM IN [place] [id number] [place] [address]
--- NOTE | 2018-10-02 16:58 | PN ---
PATIENT:LIZBETH DANIELSON MEDICAL RECORD: [id number] LOCATION:[facility] ADMISSION DATE: 09/04/18 PROGRESS NOTE DATE OF SERVICE: 09/28/2018 SUBJECTIVE: Ms. Danielson is a 67-year-old female, who was here in July for quite some time over placement issues. She did finally go back to [facility], where apparently she was allowed to sign out despite her brother having guardianship. She went over to [facility] and there was confused. The police were called as well as APS. She has been here since September 04 as the social human services assistants suspects her brother also has dementia issues and that getting the things done necessary for his sister's transfer to another facility has been overwhelming to him. APS has been contacted. On interview, the patient is pleasant, cooperative, positive, however, with superficial conversation, however, she could not answer questions to any depth. She is alert and oriented times 1-2 at best. She slept 8.75 hours, eating 100, 100, and 0%. Last bowel movement was 23rd. OBJECTIVE: LATEST VITAL SIGNS: 98.1, 62, 17, 159/90, and 97%. CURRENT MEDICATIONS: Do include Aricept and Celexa. ASSESSMENT: Unchanged. PLAN: A referral has been made to [facility]. DISCHARGE DISPOSITION INSTRUCTIONS: We will need to make it clear to the facility that she does not have the capacity to make her own decisions and she should not be allowed to leave nor sign out and that APS should considering the brother's difficulty in making arrangements for his sister, APS should take over guardianship of this patient. Case discussed with nursing. Chart reviewed. The patient interviewed. TRANSINT:[id number] Voice Confirmation ID: [id number] DOCUMENT ID: [id number] EHSAN GONZALES MD at 1658 CC: [id number] DICTATION DATE: 09/28/18 1542 TEST AUTOMATION ARCHITECT: 09/29/18 0804 ADM IN [place] [id number] [place] [address]
[2018-10-02 19:48] VITALS: BP 141/78
--- NOTE | 2018-10-02 21:57 | NUR ---
RECEIVED IN HALLWAY. WALKING ABOUT OUTSIDE OF NURSES STATION. CALM AND COOPERATIVE WITH CARE AND ASSESSMENT. ENCOURAGE TO EXPRESS NEEDS. RESTING IN BED WITH EYES CLOSED. CONTINUE PLAN OF CARE
--- NOTE | 2018-10-03 07:30 | NUR ---
REC'D PT IN HALLWAY PACING AND SOCIALIZING WITH PEERS. ALERT AND ORIENTED TO PERSON AND PLACE. NO AGGRESSION NOTED. CALM AND COOPERATIVE WITH ASSESSMENT. REDIRECT AND REORIENT NEEDED. MED COMPLIANT. FALL PRECAUTIONS IN PLACE. WILL CPOC.
[2018-10-03 07:42] VITALS: BP 116/55
[2018-10-03 20:00] VITALS: BP 130/60
--- NOTE | 2018-10-03 23:14 | NUR ---
RECEIVED IN HALLWAY OUTSIDE OF NURSES STATION. WAITING ON PM MEDICATIONS. CALM AND COOPERATIVE WITH CARE AND ASSESSMENT. PLEASANTLY CONFUSED. REDIRECT AND REORIENT NEEDED. RESTING IN BED WITH EYES CLOSED AT THIS TIME. CONTINUE PLAN OF CARE.
--- NOTE | 2018-10-04 08:00 | NUR ---
REC'D PT IN HALLWAY BY NURSES STATION SOCIALIZING WITH PEERS. RESP EVEN AND NONLABORED. NO ACUTE DISTRESS NOTED. CALM AND COOPERATIVE WITH CARE, VITAL SIGNS AND ASSESSMENT. PLESANTLY CONFUSED. REDIRECT AND REORIENT NEEDED. FALL PRECAUTIONS IN PLACE. WILL CONT PLAN OF CARE.
[2018-10-04] MEDS ORDERED: LISINOPRIL10 MG PO (11:06)
[2018-10-04] MEDS ORDERED: CELEXA20 MG PO (11:06)
[2018-10-04] MEDS ORDERED: Aricept PO (11:06)
[2018-10-04] MEDS ORDERED: ATIVAN0.5 MG PO (11:07)
[2018-10-04] MEDS ORDERED: ATIVAN IM (11:07)
[2018-10-04] MEDS ORDERED: ASPERCREME 5 OZ5 OZ TP (11:07)
[2018-10-04] MEDS ORDERED: IBUPROFEN800 MG PO (11:07)
[2018-10-04] MEDS ORDERED: VITAMIN D5000 UNIT PO (11:08)
[2018-10-04] MEDS ORDERED: LIDODERM 5 %1 PATCH TRANSDERM (11:08)
[2018-10-04 20:20] VITALS: BP 130/58
--- NOTE | 2018-10-04 22:12 | NUR ---
B) Patient is alert and oriented to person and place, calm and cooperative, no change, I) Administered scheduled medications as ordered, monitored for safety, R) Mediation compliant, pleasant and social with peers and staff, P) Continue plan of care.
--- NOTE | 2018-10-05 07:20 | NUR ---
REC'D PT SITTING IN A CHAIR IN HALLWAY BY NURSES STATION. RESP EVEN AND NONLABORED. NO ACUTE DISTRESS NOTED. NO BEHAVIORS NOTED AT THIS TIME. CONFUSION NOTED. AMBULATES. MED COMPLIANT. WILL CONT PLAN OF CARE.
[2018-10-05 07:44] VITALS: BP 140/86
--- NOTE | 2018-10-05 13:39 | NUR ---
[facility] denies the patient admit, Nathaniel [facility] Supervisor Whipped Topping informed this nurse that when Mr. Dooley calls please request that he come to pick her up. Mr. Dooley did call and I let him know that [facility] declined her admission there and that the request is that he come pick her up today. He said "Well, I have something going on with Marty.S." I explained to him that they came today and informed Nathaniel that they have declined her admission. He said "Well, I don't really know what to do." Asked him at what time he will be coming to pick the patient up. He said "Later today." Asked him approximately "what time today?" He said "four or five, closer to five."
--- NOTE | 2018-10-05 15:57 | NUR ---
ROBERT SPOKE TO PT'S BROTHER, SUJIT, WHO ASKED IF HE COULD HAVE UNTIL MONDAY BECAUSE THE NURSING HOMES ARE WORKING OUT A PLAN TO GET HER INTO THEIR FACILITY. ROBERT STATED WE COULD NOT WAIT BECAUSE THIS WAS DISCUSSED EARLIER AND PT DOES NOT MEET CRITERIA TO BE IN AN INPATIENT PSYC FACILITY. ROBERT ALSO STATED THE RETIREMENT IS NOT WORKING ON GETTING HER IN ANYMORE BECAUSE IT IS A FINANCIAL ISSUE AND THEY HAVE DECLINED HER. ROBERT REPORTED ONE OTHER RETIREMENT IS TRYING TO GET IN TOUCH WITH MEDICAID TO SEE IF THEY CAN HELP HIM PLACE HER QUICKER. ROBERT ALSO STATED HE NEEDED TO CONTACT THE MEDICAID OFFICE TO DETERMINE WHAT IS LOOKING SO SUSPICIOUS AND WHY THE FACILITIES ARE DENYING HER. ADELA STATED HE WOULD NOT BE ABLE TO GO TO HANDLE HIS BUSINESS BECAUSE HE WOULD HAVE TO WIG MAKER PT. ROBERT STATED WAITING OVER THE WEEKEND IS NOT GOING TO GET HER IN A NURSING FACILITY BECAUSE THEY CANNOT PROCESS PAPERWORK OVER THE WEEKEND. ROBERT ALSO STATED OUR FACILITY HAS HELD ON TO PT TO ASSIST HIM IN GETTING PT PLACED WITH THE UNDERSTANDING HE WOULD PROVIDE ALL OF THE PAPERWORK NEEDED TO HELP THE FACILITY GET FINANCIALS IN ORDER. ROBERT STATED APS STATED PT COULD LEAVE WITH HIM SINCE HE IS PT'S POA. ROBERT STATED THERE WERE MANY PHONE CALLS TO FACILITIES THAT DENIED HER DUE TO SOME FINANCIAL REASON ON HIS END. ROBERT STATED SHE DID SEND THE CRYSTAL TO THE OTHER POSSIBLE FACILITY BUT THAT FINANCIAL REASON WILL BE ACROSS THE BOARD WITH ALL NURSING HOMES. ROBERT STATED WHEN HE GETS PT'S FINANCIAL SITUATION RESOLVED HE WILL BE ABLE TO GET HER PLACED. CARE GIVING RESOURCES WERE GIVEN ALONG WITH THE CARING PLACE BROCHURE. SUJIT VOICED UNDERSTANDING.
--- NOTE | 2018-10-05 18:01 | NUR ---
PT SITTING IN CHAIR SOCIALIZING WITH PEERS. RESP EVEN AND NONLABORED. NO ACUTE DISTRESS NOTED. PT IS SET TO DISCHARGE TODAY WITH FAMILY MEMBER. MED COMPLIANT. ALL MEALS ATE WELL. WILL CONT PLAN OF CARE. WILL CONT TO MONITOR Q 15 MINS FOR SAFETY.
[2018-10-05 20:00] VITALS: BP 129/70
--- NOTE | 2018-10-05 23:10 | NUR ---
B) Patient is alert and oriented to person, place an d time, confused at times and forgetful, I) Administered scheduled medications as ordered, monitored for safety R) mediation compliant, pleasant and friendly P) Continue plan of care.
--- NOTE | 2018-10-06 08:00 | NUR ---
REC'D PT SITTING IN HALLWAY IN CHAIR. RESP EVEN AND NONLABORED. NO DISTRESS NOTED. MED COMPLIANT. NO BEHAVIORS NOTED. AMBULATES. AAOX2. PLEASANT WITH STAFF AND PEERS. WILL CONT PLAN OF CARE.
[2018-10-06 08:45] VITALS: BP 154/51
--- NOTE | 2018-10-06 08:51 | PN ---
PATIENT:LIZBETH DANIELSON MEDICAL RECORD: [id number] LOCATION:[facility] [address] ADMISSION DATE: 09/04/18 PROGRESS NOTE DATE OF SERVICE: 10/03/2018 SUBJECTIVE: Ms. Danielson is a 67-year-old female who was admitted after she signed herself out of [facility] despite the fact her brother is her guardian and went to [facility] where apparently she lived before and because of her confused behavior police were called and she was sent back here. As per the last admission, brother, whether, for whatever reasons has been very slow in getting done what needs to be done to facilitate placement to another facility. Meanwhile, the patient is calm, pleasant, superficially appropriate, but very confused. Alert and oriented times 1. She slept 8.75 hours, eating 100%. Last bowel movement was on the . ASSESSMENT: Unchanged. PLAN: Awaiting discharge disposition. This has happened now twice where simply cannot get family involvement whether from patient's brother's incapacity to do so or other reasons. interior surface insulation worker has gone above and beyond to try to get facilities to come to him, so this can be facilitated. APS has refused to get involved that since she is in a safe setting. However, the catch-22 is that until someone can initiate what is needed by the usp's discharge becomes inevitably slow. Case discussed with nursing, chart reviewed. The patient interviewed. TRANSINT:[id number] Voice Confirmation ID: [id number] DOCUMENT ID: [id number] EHSAN GONZALES MD at 0851 CC: [id number] DICTATION DATE: 10/03/181809 NEMATOLOGIST: 10/04/18 1017 ADM IN [facility] [address] [place] [address]
--- NOTE | 2018-10-06 08:51 | PN ---
PATIENT:LIZBETH DANIELSON MEDICAL RECORD: [id number] LOCATION:[facility] ADMISSION DATE: 09/04/18 PROGRESS NOTE DATE OF SERVICE: 10/02/2018 SUBJECTIVE: Ms. Danielson is a 67-year-old female who we had discharged to [facility] a month or 2 ago. Apparently, she was allowed to sign herself out despite the fact that her brother is the POA. She went to [facility] and was confused and the police and APS were called. Apparently APS had dropped the case because of her brother's involvement. The patient continues to be pleasantly confused. She is easily redirected. She is calm, positive, and appropriate, just very confused, which is not easy to chicken picker on just superficial conversation; however, APS has been recalled, they to my understanding do intend to take back guardianship of the patient since a brother increasingly seems like he is unable to do so. She slept 9-1/2 hours last night, eating 100% of meals. Last bowel movement on 09/30/2018. Her vital signs are 97.9, 70, 18, and 143/71, 98%. ASSESSMENT: Unchanged. PLAN: Awaiting placement for this very pleasant but confused lady, pending APS guardianship. Case discussed with nursing. Chart reviewed. The patient interviewed. TRANSINT:[id number] Voice Confirmation ID: [id number] DOCUMENT ID: [id number] EHSAN GONZALES MD at 0851 CC: [id number] DICTATION DATE: 10/02/18 174 ASSISTANT TEACHER: 10/03/18 0045 ADM IN [place] [id number] [place] [id number]
--- NOTE | 2018-10-06 08:51 | PN ---
PATIENT:LIZBETH DANIELSON MEDICAL RECORD: [id number] LOCATION:[facility] ADMISSION DATE: 09/04/18 PROGRESS NOTE DATE OF SERVICE: 10/04/2018 SUBJECTIVE: Ms. Danielson is a 67-year-old female who was admitted secondary to confusion. She had signed herself out at [facility]. She went over to [facility] and there, because of her behavior and confusion, police were called and she was sent back. Apparently, discharge is pending for tomorrow. The patient is, as usual, pleasant, calm, and confused. Apparently, half-way was going the extra step to help brother do what needs to be done for transfer. On interview, the patient is calm, pleasant, and appropriate. She slept 8 hours; eating 100%, 100%, and 20%; and last bowel movement on October 03. ASSESSMENT: Unchanged. PLAN: Anticipate discharge tomorrow. Continue her current psychiatric medicines of Aricept, citalopram, and vitamin D. Case was discussed with nursing. Chart was reviewed and the patient was interviewed. TRANSINT:[id number] Voice Confirmation ID: [id number] DOCUMENT ID: [id number] EHSAN GONZALES MD at 0851 CC: [id number] DICTATION DATE: 10/04/18 1243 PLATE SHEAR OPERATOR: 10/04/18 1400 ADM IN [facility] [address] [place] [address]
--- NOTE | 2018-10-06 08:51 | DS ---
PATIENT:LIZBETH DANIELSON :54 MEDICAL RECORD: [id number] DISCHARGE SUMMARY ADMISSION DATE: 09/04/18 DISCHARGE DATE: HOSPITAL COURSE: Ms. Danielson is a 67-year-old female who was admitted after having signed herself out of [facility]. She went to [facility] and because of her behavior there police and APS were called, as has been the case last time, her brother has been what seems to be increasingly being unable to make arrangements for patient's placement, which has resulted in a very long stay without behavior. She is calm, pleasant, seems superficially intact, but is quite confused. On discharge today, the patient denies suicidal or homicidal ideation, auditory or visual hallucinations or delusions. MEDICATIONS: Include Aspercreme b.i.d. p.r.n., lidocaine patch daily transdermal, lisinopril 20 mg b.i.d., Aricept 10 mg at bedtime, Celexa 20 mg every day, vitamin D 5000 daily. The patient's lab findings since admission have been nonsignificant. Her latest vitals are 98.2, 69, 16, 140/86, and 97%. ASSESSMENT: Advanced major neurocognitive disorder, Alzheimer's type, hypertension, hyperlipidemia, vitamin D deficiency, urinary tract infection treated, headache, lower back pain, and left upper arm pain. PLAN: Discharged to a nursing facility, have specifically asked that assisted be informed in the discharge orders that the patient cannot sign herself out. Right now, her brother is still her legal guardian at least until APS should become involved with that. Case discussed with nursing. Chart was reviewed and the patient interviewed. TRANSINT:[id number] Voice Confirmation ID: [id number] DOCUMENT ID: [id number] EHSAN GONZALES MD at 0851 CC: [id number] DICTATION DATE: 10/05/18 1456 SURGICAL ASSISTANT CERTIFIED: 10/06/18 0412 ADM IN [place] [id number] [place] [id number]
[2018-10-06 20:21] VITALS: BP 165/61
[2018-10-07 08:00] VITALS: BP 133/75
--- NOTE | 2018-10-07 11:37 | PN ---
PATIENT:LIZBETH DANIELSON MEDICAL RECORD: [id number] LOCATION:[facility] [address] ADMISSION DATE: 09/04/18 PROGRESS NOTE DATE OF SERVICE: 09/27/2018 SUBJECTIVE: The patient's case was discussed with staff. She has no new complaint. OBJECTIVE: The patient has been in good behavioral control. She has very limited insight about her condition. 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 She goes on to tell me that she has been offered a job to do this at a hospital in [place]. 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 PLAN: I anticipate she can be transitioned out of the hospital soon. There are some issues with her discharge that are related to adult protective services and her brother. TRANSINT:[id number] Voice Confirmation ID: [id number] DOCUMENT ID: [id number] NICOLASA NEFF MD at 1137 CC: [id number] DICTATION DATE: 09/27/18 153 SHELF DRIER OPERATOR: 09/27/18 1944 ADM IN [facility] [address] [place] [address]
--- NOTE | 2018-10-07 18:22 | NUR ---
PATIENT SITTING IN CHAIR SOCIALZING WITH PEERS. RESP EVEN AND NONLABORED. NO ACUTE DISTRESS NOTED. PT IS ALERT ORIENTED TO PERSON PLACE AND TIME. WITH SOME CONFUSION NOTED AND FORGETFULLNESS NOTED. AMBULATES. EATS AT MEALS. MED COMPLIANT. WILL CONT PLAN OF CARE.
--- NOTE | 2018-10-07 21:58 | NUR ---
RECEIVED IN DAYROOM. SITTING IN A CHAIR WITH PEERS BY HER SIDE. CALM AND COOPERATIVE WITH CARE AND ASSESSMENT. ENCOURAGE TO EXPRESS NEEDS. CONTINUES TO REST QUIETLY IN CHAIR. CONTINUE PLAN OF CARE
[2018-10-07 23:51] VITALS: BP 177/77
[2018-10-08 08:52] VITALS: BP 133/70
--- NOTE | 2018-10-08 10:39 | NUR ---
ROBERT contacted PT'S BROTHER, SUJIT, AND HE WANTS TO GIVE UP POA RIGHTS AND PUT PT IN STATE CUSTODY. HE STATED HE COULD NOT HANDLE THE PRESSURE OF TAKING HER HOME OR GETTING HER PLACED. HE GAVE SW HER BANK INFORMATION TO HELP GET PT PLACED. HE SAID HE WOULD FAX BANK STATEMENTS TO HELP GET PT ON MEDICAID. ROBERT CALLED APS AND REPORTED PT'S CASE.
--- NOTE | 2018-10-08 14:53 | PN ---
PATIENT:LIZBETH DANIELSON MEDICAL RECORD: [id number] LOCATION:[facility] [address] ADMISSION DATE: 09/04/18 PROGRESS NOTE DATE OF SERVICE: 10/07/2018 SUBJECTIVE: The patient's case was discussed with staff. She has no new complaint. OBJECTIVE: The patient is confused, but in good behavioral control. She is eating and sleeping well. There has been no agitation, and at this point, we are waiting for the placement. TRANSINT:[id number] Voice Confirmation ID: [id number] DOCUMENT ID: [id number] NICOLASA NEFF MD at 1453 CC: [id number] DICTATION DATE: 10/07/18 1557 CIRCULATION WORKER: 10/07/18 1648 ADM IN [place] [id number] [place] [address]
--- NOTE | 2018-10-08 17:55 | NUR ---
IS ORIENTED TO SELF AND PLACE .ENJOYS VISITING WITH PEERS,VERY TALKATIVE.COMPLIANT WITH MEDS AND STAFF.AMBULATES WITH STEADY GAIT.WILL CONTINUE WITH PLAN OF CARE,MONITOR FOR CHANGES ANDSAFETY.
[2018-10-08 20:06] VITALS: BP 117/75
--- NOTE | 2018-10-09 00:28 | NUR ---
PATIENT IS FORGETFUL, HAS TO BE REMINDED WHERE HER ROOM IS, WHAT'S NEXT ON THE SCHEDULE, COMPLIANT WITH MEDS, WILL FOLLOW POC
[2018-10-09 08:32] VITALS: BP 122/44
--- NOTE | 2018-10-09 10:31 | NUR ---
Nutrition follow up Regular diet with 76% average po intake Ensure ordered all trays Reviewed chart Pt is nutritionally stable RD following
--- NOTE | 2018-10-09 11:00 | NUR ---
PATIENT IS AWAKE AND ALERT. PLEASANT AND VERY SOCIABLE WITH STAFF AND PEERS. NO AGGRESSION NOTED. REDIRECT NEEDED. WILL CONTINUE PLAN OF CARE.
--- NOTE | 2018-10-09 15:05 | PN ---
PATIENT:LIZBETH DANIELSON MEDICAL RECORD: [id number] LOCATION:[facility] [address] ADMISSION DATE: 09/04/18 PROGRESS NOTE DATE OF SERVICE: 10/08/2018 SUBJECTIVE: The patient's case was discussed with staff. She has no new complaint. OBJECTIVE: The patient is in good behavioral control. She has poor insight about her situation. She has not been aggressive. ASSESSMENT: Vascular dementia. PLAN: The patient is and has been ready for discharge as it has been well documented by others and somewhat by myself. There is an ongoing problem with her discharge. She can be discharged as soon as there is an appropriate setting that I can send her to. TRANSINT:[id number] Voice Confirmation ID: [id number] DOCUMENT ID: [id number] NICOLASA NEFF MD at 1505 CC: [id number] DICTATION DATE: 10/08/18 1550 CHART PICKER: 10/08/18 1700 ADM IN [place] [address] [place] [address]
[2018-10-10 08:31] VITALS: BP 150/73
--- NOTE | 2018-10-10 11:04 | NUR ---
ROBERT ATTEMPTED TO CONTACT PT'S BROTHER TO ALERT OF WHAT IS GOING ON. ROBERT SPOKE TO SUJIT AND STATED MEDICAID NEEDED THE BANK STATEMENTS FROM HIM AND HIS SISTER SINCE IT LOOKS LIKE SOME OF HER FUNDS WENT INTO HIS ACCOUNT. ADEEL STATED HE WILL CONTACT [facility] TO SET UP A TIME TO GIVE ALL RECORDS TO HER. ROBERT REPORTED APS WAS CALLED DUE TO HIM WANTING TO GIVE UP RIGHTS AND NOT PICKING UP PT THIS PAST MONDAY.
--- NOTE | 2018-10-10 13:17 | PN ---
PATIENT:LIZBETH DANIELSON MEDICAL RECORD: [id number] LOCATION:[facility] [address] ADMISSION DATE: 09/04/18 PROGRESS NOTE DATE OF SERVICE: 10/09/2018 SUBJECTIVE: The patient's case was discussed with staff. She has no new complaint. OBJECTIVE: The patient is in good behavioral control. She has poor insight about her situation. ASSESSMENT: No change in diagnoses. PLAN: Brief supportive and educational interventions were made. Long-term prognosis is guarded. TRANSINT:[id number] Voice Confirmation ID: [id number] DOCUMENT ID: [id number] NICOLASA NEFF MD at 1317 CC: [id number] DICTATION DATE: 10/09/18 1601 BUSINESS SUPPORT ASSOCIATE: 10/09/18 1607 ADM IN [place] [id number] [place] [address]
--- NOTE | 2018-10-10 19:47 | NUR ---
RECEIVED IN HALLWAY OUTSIDE OF NURSES STATION. SOCIALIZING WITH PEERS. CALM AND COOPERATIVE WITH CARE AND ASSESSMENT. PLEASANT. REDIRECT AND REORIENT NEEDED. CONTINUES TO SOCIALIZE WITH PEERS AT THIS TIME. CONTINUE PLAN OF CARE.
[2018-10-11 12:39] VITALS: BP 123/51
--- NOTE | 2018-10-11 13:47 | PN ---
PATIENT:LIZBETH DANIELSON MEDICAL RECORD: [id number] LOCATION:[facility] ADMISSION DATE: 09/04/18 PROGRESS NOTE DATE OF SERVICE: 10/10/2018 SUBJECTIVE: The patient's case was discussed with staff. She has no new complaint. OBJECTIVE: The patient is in good behavioral control. She has limited insight about her condition. ASSESSMENT: Vascular dementia. PLAN: The patient is ready for discharge and has been ready for discharge. Unfortunately, there is no place to send her for reasons that are beyond my control. All of this is again documented extensively and hopefully health and social care teacher and adult protective services can assist in a proper long-term placement for this patient. TRANSINT:[id number] Voice Confirmation ID: [id number] DOCUMENT ID: [id number] NICOLASA NEFF MD at 1347 CC: [id number] DICTATION DATE: 10/10/18 172 FIRE WATCHER: 10/10/18 2223 ADM IN [facility] [address] [place] [address]
--- NOTE | 2018-10-11 15:24 | NUR ---
B) The patient is awake and alert, she is pleasant and she helps staff and patients in any way she can. She enjoys leading exercise groups. She has a walking shoe on and ambulates independently. I) Provide prescribed meds. R) The patient is compliant with meds and unit milieu. P) Continue POC.
[2018-10-11 23:17] VITALS: BP 141/59
--- NOTE | 2018-10-12 02:00 | NUR ---
B) Patient is alert and oriented to person and place, pleasant and friendly I) Administered scheduled medications as ordered, R) Mediation compliant, calm and cooperative, P) Continue plan of care.
--- NOTE | 2018-10-12 07:46 | NUR ---
B) The patient is awake and alert, she is pleasant. She interacts with staff and peers. She is wearing her left shoe brace. She ambulates independently. She has poor insight into her situation. She has poor short term memory. I) Provide prescribed meds. R) The patient is compliant with meds and unit milieu. P) Continue POC.
[2018-10-12 09:21] VITALS: BP 146/61
--- NOTE | 2018-10-12 14:15 | PN ---
PATIENT:LIZBETH DANIELSON MEDICAL RECORD: [id number] LOCATION:[facility] ADMISSION DATE: 09/04/18 PROGRESS NOTE DATE OF SERVICE: SUBJECTIVE: The patient's case was discussed with staff. She has no new complaint. OBJECTIVE: The patient is stable, sleeping, and eating well with no aggression. She needs retirement care and therein lies the difficulty as it has been documented regularly for some time now. Hopefully, she can be transitioned out of the hospital soon. I have no update to report on the progress being made on her placement. TRANSINT:[id number] Voice Confirmation ID: [id number] DOCUMENT ID: [id number] NICOLASA NEFF MD at 1415 CC: [id number] DICTATION DATE: 10/11/18 1547 CYBER INTELLIGENCE ANALYST: 10/11/18 2100 ADM IN [place] [address] [place] [id number]
[2018-10-12 20:00] VITALS: BP 150/60
--- NOTE | 2018-10-12 23:10 | NUR ---
PATIENT IS AGITATED THIS EVENING, COMPLIANT WITH MEDS, NO ADVERSE REACTION NOTED. WILL FOLLOW POC
[2018-10-13 08:08] VITALS: BP 151/74
[2018-10-13 09:57] VITALS: BP 151/74
--- NOTE | 2018-10-13 10:36 | PN ---
PATIENT:LIZBETH DANIELSON MEDICAL RECORD: [id number] LOCATION:[facility] ADMISSION DATE: 09/04/18 PROGRESS NOTE DATE OF SERVICE: 10/12/2018 SUBJECTIVE: The patient's case was discussed with staff. She has no new complaint. OBJECTIVE: The patient is in good behavioral control. She has poor insight about her condition. She has not been aggressive. ASSESSMENT: Vascular dementia. PLAN: Current medicines will be maintained. Long-term prognosis is guarded. TRANSINT:[id number] Voice Confirmation ID: [id number] DOCUMENT ID: [id number] NICOLASA NEFF MD at 1036 CC: [id number] DICTATION DATE: 10/12/18 1556 ELECTRONIC ASSEMBLER: 10/12/18 2238 ADM IN [place] [id number]
--- NOTE | 2018-10-13 11:22 | NUR ---
B) The patient is awake and alert, she is pleasant and she stays positive and talks positively. She ambulates independently. She is helpful with staff and other patients. I) Provide prescribed. R) The patient is compliant with meds. P) Continue POC.
--- NOTE | 2018-10-13 16:44 | NUR ---
The patient c/o a headache, rates her pain 6/10. Did provide Motrin, See MAR.
--- NOTE | 2018-10-13 17:28 | NUR ---
The patient says her headache is gone now and she feels well.
[2018-10-13 20:00] VITALS: BP 132/60
--- NOTE | 2018-10-14 00:22 | NUR ---
PATIENT IS PLEASANT, COOPERATIVE, COMPLIANT WITH MEDS, IMPAIRED MEMORY AT TIMES. WILL FOLLOW POC
[2018-10-14 07:00] VITALS: BP 130/67
--- NOTE | 2018-10-14 09:40 | PN ---
PATIENT:LIZBETH DANIELSON MEDICAL RECORD: [id number] LOCATION:[facility] ADMISSION DATE: 09/04/18 PROGRESS NOTE DATE OF SERVICE: 10/13/2018 SUBJECTIVE: The patient's case was discussed with staff. She has no new complaint. OBJECTIVE: The patient is stable. She is eating and sleeping well. She is impaired cognitively, but there is no evidence of acute or direct dangerousness. She is appropriate for discharge. ASSESSMENT: Vascular dementia. PLAN: The patient will be discharged as soon as placement can be arranged. TRANSINT:[id number] Voice Confirmation ID: [id number] DOCUMENT ID: [id number] NICOLASA NEFF MD at 0940 CC: [id number] DICTATION DATE: 10/13/18 1227 PORTAL DEVELOPER: 10/13/18 1711 ADM IN [facility] [address] [place] [address]
--- NOTE | 2018-10-14 14:23 | NUR ---
PT IS ALERT AND ORIENTED TO PERSON AND PLACE. CALM AND COOPERATIVE WITH ASSESSMENT. MED COMPLIANT. REDIRECT AND REORIENT NEEDED. FALL PRECAUTIONS IN PLACE. NO AGGRESSION NOTED. PT IS VERY PLEASANT WITH STAFF AND PEERS. NO S/SX OF DISTRESS NOTED. WILL CPOC.
--- NOTE | 2018-10-14 17:59 | NUR ---
PT. IS FORGETFUL REGARDING THE MENU (LUNCH MENU), SHE NORMALLY FILLS HER MENU OUT AND TODAY SHE NEEDED TO BE REMINDED MULTIPLE TIMES TODAY.
[2018-10-14 20:08] VITALS: BP 126/67
--- NOTE | 2018-10-14 21:48 | NUR ---
RECEIVED IN DAYROOM. SITTING IN A CHAIR WITH STAFF AND PEERS AT HER SIDE. CALM AND COOPERATIVE WITH CARE AND ASSESSMENT. ENCOURAGE TO EXPRESS NEEDS. CONTINUES TO SIT CALMLY IN DAYROOM. CONTINUE PLAN OF CARE
[2018-10-15 07:00] VITALS: BP 157/62
--- NOTE | 2018-10-15 11:21 | NUR ---
PT IS ALERT AND ORIENTED X 2. PT IS MORE CONFUSED PAST TWO DAYS. PT ASKED [facility] FOR MENU TO COMPLETE. [facility] HAD ALREADY GAVE PT THE MENU AND PT FORGOT IT ON THE TABLE. PT DOES NOT REMEMBER GETTING MENU FROM [facility] AND LEAVING IT ON THE TABLE. MENU PROVIDED TO PT AT THIS TIME. PT IS CALM AND COOPERATIVE WITH ASSESSMENT. PT IS MED COMPLIANT. REDIRECT AND REORIENT NEEDED. FALL PRECAUTIONS IN PLACE. PT IS MOOD PLEASANTLY CONFUSED. NO BEHAVIORS NOTED AT THIS TIME. WILL CPOC.
--- NOTE | 2018-10-15 14:35 | PN ---
PATIENT:LIZBETH DANIELSON MEDICAL RECORD: [id number] LOCATION:[facility] ADMISSION DATE: 09/04/18 PROGRESS NOTE DATE OF SERVICE: 10/14/2018 SUBJECTIVE: The patient's case was discussed with staff. She has no new complaint. OBJECTIVE: The patient is in good behavioral control. She is tolerating her medicines well. ASSESSMENT: Vascular dementia. PLAN: Current medicines will be maintained. The patient will be transitioned out of the hospital as soon as there is an appropriate setting. TRANSINT:[id number] Voice Confirmation ID: [id number] DOCUMENT ID: [id number] NICOLASA NEFF MD at 1435 CC: [id number] DICTATION DATE: 10/14/18 1017 CLERICAL METHODS ANALYST: 10/14/18 1410 ADM IN [address] [address]
--- NOTE | 2018-10-15 22:02 | NUR ---
RECEIVED IN DAYROOM. SOCIALIZES WITH STAFF AND PEERS. CALM AND COOPERATIVE WITH CARE AND ASSESSMENT. PLEASANT. REDIRECT AND REORIENT NEEDED. RESTING IN BED WITH EYES OPEN AT THIS TIME. CONTINUE PLAN OF CARE.
[2018-10-16 02:22] VITALS: BP 139/60
[2018-10-16 08:00] VITALS: BP 154/92
--- NOTE | 2018-10-16 09:41 | PN ---
PATIENT:LIZBETH DANIELSON MEDICAL RECORD: [id number] LOCATION:[facility] ADMISSION DATE: 09/04/18 PROGRESS NOTE DATE OF SERVICE: 10/15/2018 SUBJECTIVE: The patient's case was discussed with staff. She has no new complaint. OBJECTIVE: The patient is in good behavioral control. She is awaiting discharge. No new development has occurred in that area. ASSESSMENT: Vascular dementia. PLAN: The patient will be discharged from the hospital as soon as appropriate placement can be arranged. TRANSINT:[id number] Voice Confirmation ID: [id number] DOCUMENT ID: [id number] NICOLASA NEFF MD at 0941 CC: [id number] DICTATION DATE: 10/15/18 1458 MILLED RUBBER TENDER: 10/15/18 1514 ADM IN [place] [address] [place] [address]
--- NOTE | 2018-10-16 10:01 | NUR ---
Nutrition follow up Regular diet with Ensure all tray Pt eating 100% of most meals Weight 166lb likely inaccurate-will ask nursing to reweigh RD following
--- NOTE | 2018-10-16 17:35 | NUR ---
PT IS ALERT AND ORIENTED. PT IS PLEASANTLY CONFUSED. CALM AND COOPERATIVE WITH ASSESSMENT. REDIRECT AND REORIENT NEEDED. MED COMPLIANT. FALL PRECAUTIONS IN PLACE. WILL CPOC.
--- NOTE | 2018-10-16 23:40 | NUR ---
RECEIVED IN PATIENT ROOM. GETTING READY FOR BED. CALM AND COOPERATIVE WITH CARE AND ASSESSMENT. PLEASANTLY CONFUSED. REDIRECT AND REORIENT NEEDED. RESTING IN BED WITH EYES CLOSED AT THIS TIME. CONTINUE PLAN OF CARE.
[2018-10-17 09:00] VITALS: BP 147/79
--- NOTE | 2018-10-17 12:50 | PN ---
PATIENT:LIZBETH DANIELSON MEDICAL RECORD: [id number] LOCATION:[facility] ADMISSION DATE: 09/04/18 PROGRESS NOTE DATE OF SERVICE: 10/16/2018 SUBJECTIVE: The patient's case was discussed with staff. She has no new complaint. OBJECTIVE: The patient is in good behavioral control. She has very limited insight about her condition. She is ready and appropriate for discharge. There is still no placement that has been arranged. ASSESSMENT: Vascular dementia. PLAN: The patient will be transitioned out of the hospital as soon as arrangements can be made. TRANSINT:[id number] Voice Confirmation ID: [id number] DOCUMENT ID: [id number] NICOLASA NEFF MD at 1250 CC: [id number] DICTATION DATE: 10/16/18 0955 PLATING TECHNICIAN: 10/16/18 1035 ADM IN [facility] [address] [place] [id number]
--- NOTE | 2018-10-17 14:44 | NUR ---
PT IS ALERT AND ORIENTED. PT IS PLEASANTLY CONFUSED. CALM AND COOPERATIVE WITH ASSESSMENT. MED COMPLIANT. REDIRECT AND REORIENT NEEDED. FALL PRECAUTIONS IN PLACE. WILL CPOC.
[2018-10-17 20:00] VITALS: BP 160/81
--- NOTE | 2018-10-17 21:12 | NUR ---
RECEIVED IN DAYROOM. SITTING IN A CHAIR WITH PEERS AT HER SIDE. CALM AND COOPERATIVE WITH CARE AND ASSESSMENT. ENCOURAGE TO EXPRESS NEEDS. CONTINUES TO SIT QUIETLY. CONTINUE PLAN OF CARE
[2018-10-18 08:37] VITALS: BP 136/87
--- NOTE | 2018-10-18 09:01 | NUR ---
REC'D PATIENT SITTING IN A CHAIR IN HALLWAY. RESP EVEN AND NONLABORED. NO ACUTE DISTRESS NOTED. PT AMBULATES. CONFUSION NOTED. ALERT AND ORIENTED TO SELF AND SITIUTION. CONTINUE CARE OF PLAN.
--- NOTE | 2018-10-18 15:03 | PN ---
PATIENT:LIZBETH DANIELSON MEDICAL RECORD: [id number] LOCATION:[facility] ADMISSION DATE: 09/04/18 PROGRESS NOTE DATE OF SERVICE: 10/17/2018 SUBJECTIVE: The patient's case was discussed with staff. She has no new complaint. OBJECTIVE: The patient is in good behavioral control and ready for discharge. ASSESSMENT: Vascular dementia. PLAN: The patient will be discharged as soon as placement can be arranged. Long-term prognosis is guarded. TRANSINT:[id number] Voice Confirmation ID: [id number] DOCUMENT ID: [id number] NICOLASA NEFF MD at 1503 CC: [id number] DICTATION DATE: 10/17/18 1549 COLD ROLL PACKER SHEET IRON: 10/17/18 2347 ADM IN [place] [id number] [place] [address]
--- NOTE | 2018-10-18 18:20 | NUR ---
PT SITTING IN CHAIR WATCHING T.V. RESP EVEN AND NONLABORED. NO ACUTE DISTRESS NOTED. CONFUSION NOTED. MED COMPLIANT. AMBULATES. NO BEHAVIORS NOTED. PT SOCIALZIES WELL WITH PEERS. WILL CONT PLAN OF CARE.
[2018-10-18 20:00] VITALS: BP 163/69
--- NOTE | 2018-10-18 20:47 | NUR ---
PT. IS CALM AND PLEASANT, IMPAIRED MEMORY, COMPLIANT WITH MEDS. WILL FOLLOW POC
--- NOTE | 2018-10-19 07:45 | NUR ---
REC'D PT SITTING IN CHAIR IN HALLWAY AWAITING BREAKFAST. RESP EVEN AND NONLABORED. NO DISTRESS NOTED. PT IS PLESANT WITH STAFF AND PEERS. CONFUSION NOTED. MED COMPLIANT. WILL CONT PLAN OF CARE.
--- NOTE | 2018-10-19 09:13 | NUR ---
B) The patient is holding her head and c/o h/a, rates it 11/14. She is c/o not getting any food for breakfast that she likes. Did remind her that she ordered her own food, Maren Ines explained to her that she will try to get someone to help her this evening so that she can get what she likes. I) Provide Motrin for h/a and other meds as prescribed. R) The patient is compliant with meds and unit milieu. She has poor insight into her situation. P) Continue POC.
[2018-10-19 09:26] VITALS: BP 151/72
--- NOTE | 2018-10-19 10:00 | NUR ---
The patient says her pain is lessoning a little at a time.
--- NOTE | 2018-10-19 12:15 | NUR ---
The patient got upset at lunch time and refused to eat and said "it's too noisy in there." She went to the day room. Then staff offered to let her eat away from the noise and she said "Ugh, it's like a psychiatric unit." She did go eat in a quiet area. Asked her then if she is ok after a few minutes and she said "You're not going to medicate me are you?" Explained to her there was no need to medicate her. She said "Well, you'd be surprised."
--- NOTE | 2018-10-19 15:53 | PN ---
PATIENT:LIZBETH DANIELSON MEDICAL RECORD: [id number] LOCATION:[facility] ADMISSION DATE: 09/04/18 PROGRESS NOTE DATE OF SERVICE: 10/18/2018 SUBJECTIVE: The patient's case was discussed with staff. She has no new complaint. OBJECTIVE: The patient is in good behavioral control. No thoughts of self-harm and tolerating her medicines well. ASSESSMENT: Vascular dementia. PLAN: The patient will be transitioned out of the hospital as soon as placement can be arranged. TRANSINT:[id number] Voice Confirmation ID: [id number] DOCUMENT ID: [id number] NICOLASA NEFF MD at 1553 CC: [id number] DICTATION DATE: 10/18/18 1620 GIVER: 10/18/18 1729 ADM IN [place] [id number] [place] [address]
--- NOTE | 2018-10-19 18:09 | NUR ---
The patient does not c/o pain at this time.
[2018-10-19 20:03] VITALS: BP 133/73
--- NOTE | 2018-10-19 21:03 | NUR ---
PATIENT IS PLEASANT, QUIET AT TIMES, COMPLIANT WITH MEDS, NO ADVERSE REACTION NOTED, SHE HUGGED THIS [employer] DRIVER PURNIMA AND THANKED ME FOR HELPING HER. SHE HAS TO BE REMINDED WHERE HER ROOM IS AT TIMES. WILL FOLLOW POC
--- NOTE | 2018-10-20 08:30 | NUR ---
REC'D PT STANDING IN THE HALLWAY SOCIALZING WITH PEERS. PLEASANT. RESP EVEN AND NONLABORED. NO ACUTE DISTRESS NOTED. AMBULATES. MED COMPLIANT. SOME CONFUSION. WILL CONT PLAN OF CARE.
--- NOTE | 2018-10-20 11:29 | PN ---
PATIENT:LIZBETH DANIELSON MEDICAL RECORD: [id number] LOCATION:[facility] ADMISSION DATE: 09/04/18 PROGRESS NOTE DATE OF SERVICE: 10/19/2018 SUBJECTIVE: The patient's case was discussed with staff. She has no new complaint. OBJECTIVE: There is no change in the patient's condition. ASSESSMENT: Vascular dementia. PLAN: There is no development in her discharge. TRANSINT:[id number] Voice Confirmation ID: [id number] DOCUMENT ID: [id number] NICOLASA NEFF MD at 1129 CC: [id number] DICTATION DATE: 10/19/18 174 FREELANCE PATTERNMAKER: 10/19/18 2138 ADM IN [place] [address] [place] [id number]
[2018-10-20 11:51] VITALS: BP 151/59
--- NOTE | 2018-10-20 19:05 | NUR ---
PATIENT SITTING IN DAY AREA SOCIALZING WITH PEERS. RESP EVEN AND NONLABORED. NO DISTRESS NOTED. ATE ALL MEALS. AMBULATES. NO BEHAVIORS NOTED. WILL CONT PLAN OF CARE.
[2018-10-20 20:42] VITALS: BP 128/53
--- NOTE | 2018-10-20 21:22 | NUR ---
PATIENT IS CONFUSED, PLEASANT, COMPLIANT WITH MEDS, ABLE TO MAKE NEEDS KNOWN
[2018-10-21 07:00] VITALS: BP 178/76
--- NOTE | 2018-10-21 07:30 | NUR ---
PT IS ALERT AND ORIENTED TO PERSON. PT IS CONFUSED AT TIMES. CALM AND COOPERATIVE WITH ASSESSMENT. NO AGGRESSION NOTED. REDIRECT AND REORIENT NEEDED. MED COMPLAINT. FALL PRECAUTIONS IN PLACE. WILL CPOC.
--- NOTE | 2018-10-21 12:15 | PN ---
PATIENT:LIZBETH DANIELSON MEDICAL RECORD: [id number] LOCATION:[facility] ADMISSION DATE: 09/04/18 PROGRESS NOTE DATE OF SERVICE: 10/20/2018 SUBJECTIVE: The patient's case was discussed with staff. She has no new complaint. OBJECTIVE: There is no change in the patient's behavior. ASSESSMENT: Vascular dementia. PLAN: There is no improvement or advances that I am aware of in her discharge. TRANSINT:[id number] Voice Confirmation ID: [id number] DOCUMENT ID: [id number] NICOLASA NEFF MD at 1215 CC: [id number] DICTATION DATE: 10/20/18 1300 COLORER: 10/20/18 1347 ADM IN [place] [id number] [place] [id number]
[2018-10-21 20:56] VITALS: BP 113/52
--- NOTE | 2018-10-22 00:41 | NUR ---
PATIENT IS CONFUSED BUT SHE IS PLEASANT, INTELLIGENT AND DELIGHTFUL TO SPEAK WITH. COMPLIANT WITH MEDS. WILL FOLLOW POC
[2018-10-22 07:00] VITALS: BP 124/83
--- NOTE | 2018-10-22 07:30 | NUR ---
PT IS ALERT AND ORIENTED TO PERSON WITH CONFUSION NOTED. CALM AND COOPERATIVE WITH ASSESSMENT. MED COMPLIANT. REDIRECT AND REORIENT NEEEDED. NO AGGRESSION NOTED. FALL PRECAUTIONS IN PLACE. WILL CPOC.
--- NOTE | 2018-10-22 11:00 | NUR ---
AWAKE AND ALERT, WITH CONFUSION NOTED. CALM AND COOPERATIVE WITH CARE AND ASSESSMENT. MEDICATION COMPLIANT. REDIRECT AND REORIENT NEEDED. WILL CONTINUE POC.
[2018-10-22 20:00] VITALS: BP 161/62
--- NOTE | 2018-10-22 21:03 | NUR ---
RECEIVED IN DAYROOM. SITTING IN A CHAIR WITH PEERS AT HER SIDE. CALM AND COOPERATIVE WITH CARE AND ASSESSMENT. ENCOURAGE TO EXPRESS NEEDS. REDIRECT AND REORIENT NEEDED. SITTING QUIETLY AT THIS TIME. CONTINUE PLAN OF CARE
[2018-10-23 08:30] VITALS: BP 139/71
--- NOTE | 2018-10-23 10:36 | NUR ---
Nutrition follow up Regular diet with 71% average po intake Food preferences noted BM yesterday Ensure ordered all trays Weight 147lb RD following
--- NOTE | 2018-10-23 13:17 | PN ---
PATIENT:LIZBETH DANIELSON MEDICAL RECORD: [id number] LOCATION:[facility] ADMISSION DATE: 09/04/18 PROGRESS NOTE DATE OF SERVICE: 10/22/2018 SUBJECTIVE: The patient's case was discussed with staff. She has no new complaint. OBJECTIVE: The patient denies intent to harm herself or others. She is in good behavioral control. ASSESSMENT: Vascular dementia. PLAN: No news is forthcoming regarding her possible discharge. This is still being worked out by adult protective services and the patient's brother. TRANSINT:[id number] Voice Confirmation ID: [id number] DOCUMENT ID: [id number] NICOLASA NEFF MD at 1317 CC: [id number] DICTATION DATE: 10/22/18 162 COCOA BEAN ROASTER: 10/22/18 1920 ADM IN [facility] [address] [place] [address]
--- NOTE | 2018-10-23 14:26 | NUR ---
SITTING IN DAYROOM, ALERT, CALM, COOPERATIVE, VERY PLEASANT, CONFUSED. MEDS ADMIN PER CHARGE NURSE WITH COMPLETE COMPLIANCE NOTED. COOPERATIVE WITH GROUP THERAPY, LIKES TO HELP ANYWAY SHE CAN. CONT POC INCLUDING MEDS AND GROUP THERAPY DIRECTED.
[2018-10-23 20:00] VITALS: BP 125/71
--- NOTE | 2018-10-23 21:41 | NUR ---
RECEIVED IN DAYROOM. SITTING IN A CHAIR WITH STAFF AND PEERS AT HER SIDE. CALM AND COOPERATIVE WITH CARE AND ASSESSMENT. ENCOURAGE TO EXPRESS NEEDS AND FEELING. RESTING IN QUETLY AT THIS TIME. CONTINUE PLAN OF CARE
[2018-10-24 10:31] VITALS: BP 180/93
--- NOTE | 2018-10-24 13:27 | PN ---
PATIENT:LIZBETH DANIELSON MEDICAL RECORD: [id number] LOCATION:[facility] ADMISSION DATE: 09/04/18 PROGRESS NOTE DATE OF SERVICE: 10/23/2018 SUBJECTIVE: The patient's case was discussed with staff. She has no new complaint. OBJECTIVE: The patient is in good behavioral control and ready for discharge. ASSESSMENT: Vascular dementia. PLAN: I have no information regarding any development in her discharge plans again today. As I have repeatedly said, she may be discharged as soon as placement is arranged. TRANSINT:[id number] Voice Confirmation ID: [id number] DOCUMENT ID: [id number] NICOLASA NEFF MD at 1327 CC: [id number] DICTATION DATE: 10/23/18 1345 SUPERVISOR GROWER: 10/23/18 1415 ADM IN [place] [id number] [place] [address]
--- NOTE | 2018-10-24 18:42 | NUR ---
ORIENTED X 3.COMPLIANT WITH STAFF AND MEDS.WILL CONTINUE WITH PLAN OF CARE,MONITOR FOR CHANGES AND SAFETY.
[2018-10-24 21:07] VITALS: BP 130/64
--- NOTE | 2018-10-24 21:23 | NUR ---
PATIENT IS FORGETFUL, SHE HAS TO BE REMINDED WHERE HER ROOM IS ON MOST DAYS, COMPLIANT WITH MEDS, CAN MAKE NEEDS KNOWN, GOOD EYE CONTACT, PICKS ONE OR TWO OTHER PEOPLE TO TALK TO. WILL FOLLOW POC
--- NOTE | 2018-10-25 14:30 | NUR ---
PATIENT C/O OF A HEADACHE. MOTRIN 800 MG PO FOR HEADACHE PER PRN ORDER. WILL REASESS FOR EFFECTIVENESS.
--- NOTE | 2018-10-25 14:55 | PN ---
PATIENT:LIZBETH DANIELSON MEDICAL RECORD: [id number] LOCATION:[facility] ADMISSION DATE: 09/04/18 PROGRESS NOTE DATE OF SERVICE: 10/24/2018 SUBJECTIVE: The patient's case was discussed with staff. She has no new complaint. OBJECTIVE: The patient is in good behavioral control and has no change in her condition. ASSESSMENT: Vascular dementia. PLAN: I have no new information regarding discharge planning. TRANSINT:[id number] Voice Confirmation ID: [id number] DOCUMENT ID: [id number] NICOLASA NEFF MD at 1455 CC: [id number] DICTATION DATE: 10/24/18 1357 RETAIL DISTRICT MANAGER: 10/24/18 1433 ADM IN [place] [id number] [place] [address]
--- NOTE | 2018-10-25 17:04 | NUR ---
PRN MOTRIN 800 MG EFFECTIVE AT THIS TIME.
--- NOTE | 2018-10-25 18:16 | NUR ---
PATIENT SITTING IN DAY AREA SOCIALZING WITH PEERS. NO ACUTE DISTRESS NOTED. RESP EVEN AND NONLABORED. MEDICATION COMPLIANT. NO BEHAVIORS NOTED THIS SHIFT. CONFUSION NOTED. WILL CONT PLAN OF CARE.
--- NOTE | 2018-10-25 22:46 | NUR ---
PT. IS PLEASANT, CONFUSED AT TIMES BUT EASILY REMINDED, COMPLIANT WITH MEDS. WILL FOLLOW POC
--- NOTE | 2018-10-26 08:10 | NUR ---
REC'D PT SITTING IN DAYAREA. RESP EVEN AND NONLABORED. NO ACUTE DISTRESS NOTED. CONFUSION NOTED. ORIENTED TO PERSON, PLACE AND TIME. PATIENT IS IN A PLESANT MOOD. AMBULATES. MEDICATION COMPLIANT. WILL CONT PLAN OF CARE.
[2018-10-26 09:40] VITALS: BP 134/76
--- NOTE | 2018-10-26 15:38 | PN ---
PATIENT:LIZBETH DANIELSON MEDICAL RECORD: [id number] LOCATION:[facility] ADMISSION DATE: 09/04/18 PROGRESS NOTE DATE OF SERVICE: 10/25/2018 SUBJECTIVE: The patient's case was discussed with staff. She has no new complaint. OBJECTIVE: The patient denies intent to harm herself or others. ASSESSMENT: Vascular dementia. PLAN: The patient is going to be maintained on current medicines. Her brother apparently has still not sent the necessary documents that we need to get her placed, although I am told that may happen today. As soon as placement is arranged, she can be discharged. TRANSINT:[id number] Voice Confirmation ID: [id number] DOCUMENT ID: [id number] NICOLASA NEFF MD at 1538 CC: [id number] DICTATION DATE: 10/25/18 1524 SPECIALTY DEVELOPMENT CONSULTANT: 10/25/18 1550 ADM IN [place] [id number] [place] [address]
--- NOTE | 2018-10-26 18:55 | NUR ---
PATIENT SITTING IN CHAIR SOCIALIZING WITH PEERS. RESP EVEN AND NONLABORED. MED COMPLIANT. NEW ORDER FOR EYE DROPS. AMBULATES. NO BEHAVIORS NOTED. CONFUSION NOTED. WILL CONT PLAN OF CARE.
[2018-10-26 20:28] VITALS: BP 133/57
--- NOTE | 2018-10-27 04:30 | NUR ---
B.) Patient is alert and oriented Person and Place. She is pleasant and social with peers. She ambulates well by herself. I.) Provided PM Medications. R.) Compliant with PM medications. P.) Continue Plan of Care.
[2018-10-27 09:29] VITALS: BP 113/83
--- NOTE | 2018-10-27 09:30 | NUR ---
RECEIVED PATIENT IN DINING ROOM AT BREAKFAST, CALM, ALERT, PLEASANT, REFUSED B'FAST. MEDS ADMIN PER ORDERS WITH COMPLETE MED COMPLIANCE NOTED. COOPERATIVE WITH GROUP AND STAFF. CONT POC INCLUDING MEDS AND GROUP THERAPY DIRECTED.
--- NOTE | 2018-10-27 11:54 | PN ---
PATIENT:LIZBETH DANIELSON MEDICAL RECORD: [id number] LOCATION:[facility] ADMISSION DATE: 09/04/18 PROGRESS NOTE DATE OF SERVICE: 10/26/2018 SUBJECTIVE: The patient's case was discussed with staff. She has no new complaint. OBJECTIVE: The patient denies intent to harm herself or others. She is tolerating her medicines well. ASSESSMENT: Vascular dementia. PLAN: The patient will be discharged as soon as placement can be arranged. I have no new information. TRANSINT:[id number] Voice Confirmation ID: [id number] DOCUMENT ID: [id number] NICOLASA NEFF MD at 1154 CC: [id number] DICTATION DATE: 10/26/18 1636 PHOTOGRAPHER STILL: 10/26/18 2318 ADM IN [place] [id number] [place] [address]
[2018-10-27 22:04] VITALS: BP 113/77
--- NOTE | 2018-10-28 00:54 | NUR ---
B.) Patient is alert and oriented X4. She is helpful with other residents and staff members. She complained of a headache 8/10 sharp constant pain. I.) Provided Motrin 800MG tablet PRN for headache. R.) She states improvement as a 6/10 on the number scare with continued improvement. P.) Continue Plan of Care.
[2018-10-28 07:00] VITALS: BP 110/48
--- NOTE | 2018-10-28 09:30 | NUR ---
RECEIVED PATIENT IN DINING ROOM FOR B'FAST, ALERT, CALM, COOPERATIVE, PLEASANT. MEDS ADMIN PER ORDERS WITH COMPLETE MED COMPLIANCE NOTED. MOTRIN ADMIN DURING A.M. MED PASS FOR HEADACHE PER PT REQUEST. COOPERATIVE WITH PLAN OF CARE. CONT POC INCLUDING MEDS AND GROUP THERAPY DIRECTED.
--- NOTE | 2018-10-28 13:01 | PN ---
PATIENT:LIZBETH DANIELSON MEDICAL RECORD: [id number] LOCATION:[facility] ADMISSION DATE: 09/04/18 PROGRESS NOTE DATE OF SERVICE: 10/27/2018 SUBJECTIVE: The patient's case was discussed with staff. She has no new complaint. OBJECTIVE: The patient is in good behavioral control with limited insight about her condition. She tolerates her medicines well. ASSESSMENT: Vascular dementia. PLAN: I have no news about her discharge and she may be discharged as soon as placement is arranged. TRANSINT:[id number] Voice Confirmation ID: [id number] DOCUMENT ID: [id number] NICOLASA NEFF MD at 1301 CC: [id number] DICTATION DATE: 10/27/18 1216 ERP TECHNICAL LEAD: 10/27/18 1242 ADM IN [place] [place] [address]
[2018-10-28 23:14] VITALS: BP 114/70
--- NOTE | 2018-10-29 00:24 | NUR ---
B.) Patient is Alert and oriented X4. She assist staff and other residents. She can verbalize her needs. I.) Provided PM medications. R.) Compliant with all medications. P.) Continue Plan of Care.
[2018-10-29 07:00] VITALS: BP 139/63
--- NOTE | 2018-10-29 07:30 | NUR ---
PT IS ALERT AND ORIENTED WITH CONFUSION NOTED. CALM AND COOPERATIVE WITH ASSESSMENT. PRESCRIBED MEDS PROVIDED. MED COMPLIANT. REDIRECT AND REORIENT NEEDED. FALL PRECAUTIONS IN PLACE. NO AGGRESSION NOTED. WILL CPOC.
--- NOTE | 2018-10-29 21:05 | NUR ---
PATIENT SITTING IN DAY AREA SOCIALIZING WITH OTHER PEERS. RESP EVEN AND NONLABORED. NO ACUTE DISTRESS NOTED. PT IS CONFUSED. AAOX2. MED COMPLIANT. INDEPENDENT WITH ADL'S. WILL CONT PLAN OF CARE.
[2018-10-30 05:15] VITALS: BP 142/57
--- NOTE | 2018-10-30 07:30 | NUR ---
PT IS SITTING IN HALLWAY BY NURSES STATION TALKIMG WITH PEERS. ALERT AND ORIENTED. CALM AND COOPERATIVE WITH ASSESSMENT. NO BEHAVIORS NOTED. PT IS CONFUSED AT TIMES. REDIRECT AND REORIENT NEEDED. FALL PRECAUTIONS IN PLACE. WILL CPOC.
--- NOTE | 2018-10-30 10:03 | NUR ---
Nutrition follow up Regular diet with 83% average po intake Ensure ordered on all trays Last BM 10/[address] following
[2018-10-30 11:56] VITALS: BP 132/76
--- NOTE | 2018-10-30 15:19 | PN ---
PATIENT:LIZBETH DANIELSON MEDICAL RECORD: [id number] LOCATION:[facility] ADMISSION DATE: 09/04/18 PROGRESS NOTE DATE OF SERVICE: 10/29/2018 SUBJECTIVE: The patient's case was discussed with staff. She has no new complaint. OBJECTIVE: The patient is in good behavioral control with no symptoms that require hospitalization. ASSESSMENT: Vascular dementia. PLAN: The patient does need 18-folh-j-day supervision and I am told that the skilled nursing has finally received the documents that they need from the patient's brother. As soon as they give me approval, I will discharge her to that facility. TRANSINT:[id number] Voice Confirmation ID: [id number] DOCUMENT ID: [id number] NICOLASA NEFF MD at 1519 CC: [id number] DICTATION DATE: 10/29/18 1537 PLASTIC DOLLS MOLD FILLER: 10/29/18 1727 ADM IN [address] [address] [place] [address]
--- NOTE | 2018-10-30 15:21 | NUR ---
ROBERT CONTACTED [facility] TODAY AND THEY SAID MEDICAID APPLICATION IS ALMOST COMPLETE AND SHE SHOULD HAVE WEATHER [facility] MEDICAID TODAY OR TOMORROW. ROBERT ALSO SPOKE TO HERITA WHO IS NOW ON THE FENCE ABOUT ACCEPTING HER DUE TO THE INCONSISTENCIES OF PT'S BROTHER. ROBERT THEN CALLED [facility] AND ASKED IF THEY WOULD TALK TO THEIR COOPERATE TO SEE IF THEY WOULD ACCEPT HER.
--- NOTE | 2018-10-30 20:50 | NUR ---
RECEIVED IN BEDROOM. RESTING IN BED WITH EYES CLOSED. CALM AND COOPERATIVE WITH CARE AND ASSESSMENT. ENCOURAGE TO EXPRESS NEEDS. RESTING QUIETLY IN BED AT THIS TIME. CONTINUE PLAN OF CARE
[2018-10-31 01:35] VITALS: BP 130/70
--- NOTE | 2018-10-31 10:00 | NUR ---
PATIENT AWAKE AND ALERT, WITH CONFUSION NOTED. CALM AND COOPERATIVE WITH CARE AND ASSESSMENT. COMPLIANT WITH PRESCRIBED MEDICATIONS. WILL CONTINUE PLAN OF CARE.
--- NOTE | 2018-10-31 12:39 | PN ---
PATIENT:LIZBETH DANIELSON MEDICAL RECORD: [id number] LOCATION:[facility] ADMISSION DATE: 09/04/18 PROGRESS NOTE DATE OF SERVICE: 10/30/2018 SUBJECTIVE: The patient's case was discussed with staff. She has no new complaint. OBJECTIVE: The patient is in good behavioral control, but cognitively impaired. There is no agitation, no evidence of dangerousness, and she is ready for discharge. ASSESSMENT: Vascular dementia. PLAN: The patient cannot be discharged because she has no place to go. I am told today that someone from the Medicaid office is going to come and visit her tomorrow to try to get her qualify for Medicaid. As soon as a placement that meets her needs can be arranged, I can, will, and have been ready to discharge her. TRANSINT:[id number] Voice Confirmation ID: [id number] DOCUMENT ID: [id number] NICOLASA NEFF MD at 1239 CC: [id number] DICTATION DATE: 10/30/18 1545 RING MAKER: 10/30/182000 ADM IN [facility] [address] [place] [address]
[2018-10-31 20:00] VITALS: BP 136/57
--- NOTE | 2018-10-31 22:20 | NUR ---
B.) Patient is alert and oriented to Person and Situation. She ambulates by herself and is pleasant with staff and other residents. I.) Provided PM medications. Redirected and reoriented PRN. R.) Compliant with PM medications. P.) Continue Plan of Care
--- NOTE | 2018-11-01 08:21 | PN ---
PATIENT:LIZBETH DANIELSON MEDICAL RECORD: [id number] LOCATION:[facility] ADMISSION DATE: 09/04/18 PROGRESS NOTE DATE OF SERVICE: 10/31/2018 SUBJECTIVE: The patient's case was discussed with staff. She has no new complaint. OBJECTIVE: The patient is in good behavioral control with poor insight about her condition. ASSESSMENT: Vascular dementia. PLAN: As mentioned numerous times, the patient will be discharged as soon as placement can be arranged. I have no new information. TRANSINT:[id number] Voice Confirmation ID: [id number] DOCUMENT ID: [id number] NICOLASA NEFF MD at 0821 CC: [id number] DICTATION DATE: 10/31/18 1411 WELDER METAL FAB: 10/31/18 1446 ADM IN [place] [address] [place] [address]
[2018-11-01 09:53] VITALS: BP 124/36
--- NOTE | 2018-11-01 14:49 | NUR ---
IS ORIENTED TO SELF AND HOSPITAL.COMPLIANT WITH STAFF AND MEDS.WILL CONTINUE WITH PLAN OF CARE,MONITOR FOR CHANGES AND SAFETY.
[2018-11-01 20:00] VITALS: BP 144/81
--- NOTE | 2018-11-01 23:07 | NUR ---
B) Patient is alert and oriented to person, place and month, helpful with other patients, pleasant and social toward staff, I) Administered scheduled medications as ordered, monitored for needs, R) Mediation compliant, calm and cooperative, P) Continue plan of care.
[2018-11-02 07:36] VITALS: BP 128/72
--- NOTE | 2018-11-02 08:59 | NUR ---
ROBERT SPOKE TO APS AND THEY WILL COME SEE ROBERT TOMORROW REGARDING OPENING A CASE. PT NOW HAS MEDICAID. ROBERT PLACED CALLS TO BOTH [facility]. BOTH FACILITIES STATED THEY WOULD HAVE TO CONTACT PT'S BROTHER FOR PPW AND UNDERSTANDING THAT HE IS GIVING UP HIS RIGHTS. ROBERT WILL CONTINUE TO FOLLOW UP ON CASE. LATE ENTRY FROM 11/01
--- NOTE | 2018-11-02 13:13 | NUR ---
B) The patient is awake and alert, she is pleasant, she did help lead exercise groups and she is helpful with other patients and staff. She did speak with Renetta Peng from [facility] to discuss custody and placement. I) Provide prescribed meds. R) The patient is compliant with meds and unit milieu. P) Continue POC.
--- NOTE | 2018-11-02 15:15 | PN ---
PATIENT:LIZBETH DANIELSON MEDICAL RECORD: [id number] LOCATION:[facility] ADMISSION DATE: 09/04/18 PROGRESS NOTE DATE OF SERVICE: 11/01/2018 SUBJECTIVE: The patient's case was discussed with staff. She has no new complaint. OBJECTIVE: The patient is in good behavioral control and ready for discharge. ASSESSMENT: Vascular dementia. PLAN: I am told at the team meeting today that the patient has now been approved for Medicaid. Apparently, that is a major step forward in getting her placed in a assisted. I am ready for her to be discharged and will discharge her as soon as appropriate placement can be arranged. TRANSINT:[id number] Voice Confirmation ID: [id number] DOCUMENT ID: [id number] NICOLASA NEFF MD at 1515 CC: [id number] DICTATION DATE: 11/01/18 1547 SPORTS MEDICINE COORDINATOR: 11/01/18 1802 ADM IN [facility] [address] [place] [address]
[2018-11-02 20:09] VITALS: BP 115/59
--- NOTE | 2018-11-02 22:03 | NUR ---
B.) Patient is alert and oriented to person, place and situation. She ambulates by herself and can make her needs known. She is very pleasant and enjoys helping the staff. I.) Provided PM medications. R.) Compliant with medications. P.) Continue Plan of Care.
[2018-11-03 08:19] VITALS: BP 133/75
--- NOTE | 2018-11-03 11:08 | NUR ---
PATIENT IS IN DAY ROOM WITH STAFF AND PEERS. PT IS ALERT AND ORIENTED TO PERSON AND PLACE. AMBULATES PER SELF. PLESANT WITH STAFF AND PEERS AND ENJOYS HELPING STAFF AND PEERS. ABLE TO MAKE NEEDS KNOW. COMPLIANT WITH MEDICATIONS AND AM ASSESSMENT. WILL CONT PLAN OF CARE.
--- NOTE | 2018-11-03 11:18 | PN ---
PATIENT:LIZBETH DANIELSON MEDICAL RECORD: [id number] LOCATION:[facility] ADMISSION DATE: 09/04/18 PROGRESS NOTE DATE OF SERVICE: 11/02/2018 SUBJECTIVE: The patient's case was discussed with staff. She has no new complaint. OBJECTIVE: The patient is in good behavioral control, but impaired cognitively. ASSESSMENT: Vascular dementia. PLAN: Again, the patient can be discharged as soon as placement is arranged. It appears that that will not be before next week now since it is Monday afternoon. TRANSINT:[id number] Voice Confirmation ID: [id number] DOCUMENT ID: [id number] NICOLASA NEFF MD at 1118 CC: [id number] DICTATION DATE: 11/02/18 1528 WAXER FLOOR: 11/02/18 1543 ADM IN [place] [place] [address]
[2018-11-03 21:57] VITALS: BP 134/69
--- NOTE | 2018-11-03 22:35 | NUR ---
PATIENT IS CONFUSED, QUIET, PLEASANT, COMPLIANT WITH MEDS, MAKES NEEDS KNOWN. WILL FOLLOW POC
[2018-11-04 07:00] VITALS: BP 145/45
--- NOTE | 2018-11-04 09:12 | NUR ---
PT IS ALERT AND ORIENTED TO PERSON AND PLACE. PT IS IN DAY ROOM WATCHING TV WITH PEERS. CALM AND COOPERATIVE WITH ASSESSMENT. REDIRECT AND REORIENT NEEDED. NO BEHAVIORS NOTED. PRESCRIBED MEDICATION PROVIDED. MED COMPLIANT. FALL PRECAUTIONS IN PLACE. WILL CPOC.
--- NOTE | 2018-11-04 09:42 | PN ---
PATIENT:LIZBETH DANIELSON MEDICAL RECORD: [id number] LOCATION:[facility] ADMISSION DATE: 09/04/18 PROGRESS NOTE DATE OF SERVICE: 11/03/2018 SUBJECTIVE: The patient's case was discussed with staff. She has no new complaint. OBJECTIVE: The patient has no change in her condition. ASSESSMENT: Vascular dementia. PLAN: No new developments regarding her discharge are available today. TRANSINT:[id number] Voice Confirmation ID: [id number] DOCUMENT ID: [id number] NICOLASA NEFF MD at 0942 CC: [id number] DICTATION DATE: 11/03/18 1123 KNITTED GOODS SHAPER: 11/03/18 1209 ADM IN [address] [address] [place] [address]
[2018-11-04 20:09] VITALS: BP 141/61
--- NOTE | 2018-11-04 23:53 | NUR ---
PATIENT IS CONFUSED, COOPERATIVE, COMPLIANT WITH MEDS.
[2018-11-05 08:30] VITALS: BP 132/73
--- NOTE | 2018-11-05 10:24 | NUR ---
RECEIVED PATIENT IN DINING ROOM FOR B'FAST, ALERT, CALM, COOPERATIVE, ENJOYS ASSISTING OTHER PATIENTS DURING GROUP ACTIVITY. MEDS ADMIN PER ORDERS WITH COMPLETE MED COMPLIANCE NOTED. COOPERATIVE WITH POC AND STAFF REQUESTS. CONT POC INCLUDING MEDS AND GROUP THERAPY DIRECTED.
--- NOTE | 2018-11-05 15:09 | NUR ---
Nutrition follow-up: Diet: Regular PO intake ~81% of last 9 meals +BM Wt: 149# -> up 12# from admit Pt with ~166 ml fluid intake x [address] RDN following.
[2018-11-05 19:14] VITALS: BP 144/60
--- NOTE | 2018-11-05 21:43 | NUR ---
RECEIVED IN HALLWAY OUTSIDE OF NURSES STATION. SOCIALIZING WITH A PEER. CALM AND COOPERATIVE WITH CARE AND ASSESSMENT. ENCOURAGE TO EXPRESS NEEDS. RESTING IN BED QUIETLY AT THIS TIME. CONTINUE PLAN OF CARE
[2018-11-06 07:00] VITALS: BP 129/69
--- NOTE | 2018-11-06 10:05 | NUR ---
RECEIVED PATIEN IN DINING ROOM FOR B'FAST, ALERT, CALM, COOPERATIVE, QUITE PLEASANT. MEDS ADMIN PER ORDERS WITH COMPLETE MED COMPLIANCE NOTED. COOPERATIVE WITH POC. CONT POC INCLUDING MEDS AND GROUP THERAPY DIRECTED.
--- NOTE | 2018-11-06 12:15 | PN ---
PATIENT:LIZBETH DANIELSON MEDICAL RECORD: [id number] LOCATION:[facility] ADMISSION DATE: 09/04/18 PROGRESS NOTE DATE OF SERVICE: 11/05/2018 SUBJECTIVE: The patient's case was discussed with staff. She has no new complaint. OBJECTIVE: There is no change in the patient's clinical condition. ASSESSMENT: No change in diagnoses. PLAN: The patient will be discharged as soon as placement can be arranged. TRANSINT:[id number] Voice Confirmation ID: [id number] DOCUMENT ID: [id number] NICOLASA NEFF MD at 1215 CC: [id number] DICTATION DATE: 11/05/18 1624 RESTAURANT SHIFT SUPERVISOR: 11/05/18 1846 ADM IN [address] [address] [place] [address]
[2018-11-06 20:00] VITALS: BP 133/72
--- NOTE | 2018-11-06 21:38 | NUR ---
RECEIVED IN DAYROOM. SITTING IN A CHAIR SOCIALIZING WITH A PEER. CALM AND COOPERATIVE WITH CARE AND ASSESSMENT. ENCOURAGE TO EXPRESS NEEDS. RESTING IN BED WITH EYES CLOSED AT THIS TIME. CONTINUE PLAN OF CARE
[2018-11-07 10:08] VITALS: BP 123/73
--- NOTE | 2018-11-07 12:04 | PN ---
PATIENT:LIZBETH DANIELSON MEDICAL RECORD: [id number] LOCATION:[facility] ADMISSION DATE: 09/04/18 PROGRESS NOTE DATE OF SERVICE: 11/06/2018 SUBJECTIVE: The patient's case was discussed with staff. She has no new complaint. OBJECTIVE: There is no change in the patient's clinical condition. ASSESSMENT: No change in diagnoses. PLAN: No new information regarding discharge is available. TRANSINT:[id number] Voice Confirmation ID: [id number] DOCUMENT ID: [id number] NICOLASA NEFF MD at 1204 CC: [id number] DICTATION DATE: 11/06/18 1228 LAW EXAMINER: 11/06/18 1311 ADM IN [address] [address]
--- NOTE | 2018-11-07 15:46 | NUR ---
IS ORIENTED TO SELF AND HOSPITAL. CONFUSED ABOUT WHY SHE IS HERE AND HER FUTURE.IS COMPLIANT WITH STAFF AND MEDS.WALKS WITH A STEADY GAIT.SOCIALIZES WITH PEERS AND STAFF.WILL CONTINUE WITH CURRENT PLAN OF CARE,MONITOR FOR CHANGES AND SAFETY.
[2018-11-07 21:05] VITALS: BP 134/52
--- NOTE | 2018-11-08 00:39 | NUR ---
PT. IS BECOMING MORE CONFUSED, WHILE IN DAYROOM THIS EVENING, SHE ASKED WHERE THE RESTROOM WAS. COMPLIANT WITH MEDS. CAN VOICE CONCERNS STILL AT THIS TIME. WILLL FOLLOW POC
--- NOTE | 2018-11-08 08:15 | NUR ---
REC'D PT LAYING IN BED WITH EYES CLOSED. RESP EVEN AND NONLABORED. NO ACUTE DISTRESS NOTED. SOME CONFUSION NOTED. MED COMPLIANT. AMBULATES. WILL CONT PLAN OF CARE.
[2018-11-08 10:54] VITALS: BP 116/81
--- NOTE | 2018-11-08 13:25 | PN ---
PATIENT:LIZBETH DANIELSON MEDICAL RECORD: [id number] LOCATION:[facility] ADMISSION DATE: 09/04/18 PROGRESS NOTE DATE OF SERVICE: 11/07/2018 SUBJECTIVE: The patient's case was discussed with staff. She has no new complaint. OBJECTIVE: There is no change in the patient's condition. ASSESSMENT: No change in diagnoses. PLAN: No change in discharge plans and no new developments in its implementation. TRANSINT:[id number] Voice Confirmation ID: [id number] DOCUMENT ID: [id number] NICOLASA NEFF MD at 1325 CC: [id number] DICTATION DATE: 11/07/18 1248 BENCH MOLDER: 11/07/18 1326 ADM IN [id number] [place] [id number]
--- NOTE | 2018-11-08 15:36 | NUR ---
The patient is tearful today and sad. She does not understand why she is here and she is concerned about her family. Did try to explain again that [facility] is trying to help her find placement that is most beneficial for her. She verbalized understanding. She has since started conversing and perking up since the conversation.
--- NOTE | 2018-11-08 17:44 | NUR ---
PATIENT SITTING IN DAY AREA WATCHING T.V. CONFUSION NOTED. PT IS IN A BETTER MOOD AFTER SPEAKING WITH STAFF MEMBER ABOUT DISCHARGE SITUTION. PT RECIEVED ENSURE WITH MEALS. MED COMPLIANT. AMBULATES. WILL CONT PLAN OF CARE.
[2018-11-08 21:04] VITALS: BP 130/70
--- NOTE | 2018-11-08 21:51 | NUR ---
PATIENT IS CONFUSED, LITTLE FLAT AFFECT, COMPLIANT WITH MEDS, ABLE TO MAKE NEEDS KNOWN, HER NEEDS FOR DIRECTIONS IS INCREASING, WILL FOLLOW POC
[2018-11-09 09:16] VITALS: BP 138/56
--- NOTE | 2018-11-09 10:13 | NUR ---
Nutrition follow-up: Diet: regular PO intake ~96% of meals Labs reviewed Wt: 149# +BM RDN following
--- NOTE | 2018-11-09 13:51 | PN ---
PATIENT:LIZBETH DANIELSON MEDICAL RECORD: [id number] LOCATION:[facility] ADMISSION DATE: 09/04/18 PROGRESS NOTE DATE OF SERVICE: 11/08/2018 SUBJECTIVE: The patient's case was discussed with staff. She has no new complaint. OBJECTIVE: The patient is in good behavioral control. She has limited insight about her condition. She is tolerating her medicines well. ASSESSMENT: No change in diagnoses. PLAN: Current medicines have been reviewed and will be maintained. Long-term prognosis is guarded. TRANSINT:[id number] Voice Confirmation ID: [id number] DOCUMENT ID: [id number] NICOLASA NEFF MD at 1351 CC: [id number] DICTATION DATE: 11/08/18 1431 CORRECTIONAL CASEWORK SPECIALIST: 11/08/18 1744 ADM IN [place] [address] [place] [address]
[2018-11-09 20:23] VITALS: BP 119/49
--- NOTE | 2018-11-09 22:04 | NUR ---
B.) Patient is alert and oriented to self, place and situation. I.) Provided PM medications. Redirected and reoriented to time. R.) Compliant with all medications. Patient stated "Today is the 09 of November." P.) Continue Plan of Care.
--- NOTE | 2018-11-10 07:48 | NUR ---
B) The patient is awake and alert. She is pleasant. She has poor insight into her situation. She does aske about seeing an eye Dr. and asks when her appointment is. Did let her know she will see the opthomologist when she is discharged. I) Provide prescribed meds. R) The patient is compliant with meds and unit milieu. She does have c/o shoulder pain, she has a complaint each day. She does try to smile, but she is less animated than her usual self and presents more with a depressed mood. P) Continue POC.
[2018-11-10 10:25] VITALS: BP 148/78
--- NOTE | 2018-11-10 11:33 | PN ---
PATIENT:LIZBETH DANIELSON MEDICAL RECORD: [id number] LOCATION:[facility] ADMISSION DATE: 09/04/18 PROGRESS NOTE DATE OF SERVICE: 11/09/2018 SUBJECTIVE: The patient's case was discussed with staff. She has no new complaint. OBJECTIVE: The patient is in good behavioral control with limited insight about her condition. She tolerates her medicines well. ASSESSMENT: Vascular dementia. PLAN: Current medicines will be maintained. I have no new information about her discharge. TRANSINT:[id number] Voice Confirmation ID: [id number] DOCUMENT ID: [id number] NICOLASA NEFF MD at 1133 CC: [id number] DICTATION DATE: 11/09/18 1517 ANIMAL ECOLOGIST: 11/09/18 2159 ADM IN [place] [address] [place] [id number]
[2018-11-10 20:24] VITALS: BP 121/56
--- NOTE | 2018-11-10 22:40 | NUR ---
B.) PATIENT IS ALERT AND ORIENTED TO SELF AND PLACE. I.) PROVIDED PM MEDICATIONS AND REDIRECTED PATIENT. R.) COMPLIANT WITH ALL MEDICATIONS AND RECALLS THAT HER ROOM IS 1133. P.) CONTINUE PLAN OF CARE.
[2018-11-11 07:00] VITALS: BP 140/71
--- NOTE | 2018-11-11 10:35 | NUR ---
CONFUSED AND DISORIENTED.COMPLIANT WITH STAFF AND MEDS.SOCIALIZES WITH PEERS.WILL CONTINUE WITH PLAN OF CARE,MONITOR FOR CHANGES AND SAFETY.
--- NOTE | 2018-11-11 11:39 | PN ---
PATIENT:LIZBETH DANIELSON MEDICAL RECORD: [id number] LOCATION:[facility] ADMISSION DATE: 09/04/18 PROGRESS NOTE DATE OF SERVICE: 11/10/2018 SUBJECTIVE: The patient's case was discussed with staff. She has no new complaint. OBJECTIVE: The patient is in good behavioral control. She has limited insight about her situation. ASSESSMENT: No change in diagnoses. PLAN: The patient can be discharged as soon as placement is arranged. TRANSINT:[id number] Voice Confirmation ID: [id number] DOCUMENT ID: [id number] NICOLASA NEFF MD at 1139 CC: [id number] DICTATION DATE: 11/10/18 1132 THERMOGRAPH OPERATOR: 11/10/18 1319 ADM IN [address] [address]
[2018-11-11 20:14] VITALS: BP 118/59
--- NOTE | 2018-11-11 21:05 | NUR ---
RECEIVED IN DAYROOM. SITTING IN A CHAIR WITH PEERS AT HER SIDE. SOCIALIZING AT TIMES. CALM AND COOPERATIVE WITH CARE AND ASSESSMENT. ENCOURAGE TO EXPRESS NEEDS. CONTINUES TO SIT QUIETLY. CONTINUE PLAN OF CARE
--- NOTE | 2018-11-11 22:12 | NUR ---
ASPERCREME ADMIN PER ORDERS, BARCODE WOULD NOT SCAN. PHARMACY CLOSED.
[2018-11-12 07:00] VITALS: BP 127/74
--- NOTE | 2018-11-12 08:34 | NUR ---
ROBERT CONTACTED LINNETTE SUMNER TO ASK IF PT WILL BE PUT IN CUSTODY. SHE STATED SHE WILL BE HAVING A MEETING IN [place] ABOUT PTS. SW IS STILL TRYING TO GET PT PLACED IN NURSING FACILITIES. HOWEVER, NO FACILITY IN [place] WILL ACCEPT HER DUE TO HER BROTHER'S PAST ACTIONS. PT HAS [place] MEDICAID NOW. SW HAS CONTACTED NURSING FACILITIES OUT OF TOWN. PT'S BROTHER STATED HE IS STILL WILLING TO SIGN HER IN TO ONE AND SIGN HER CHECK OVER.
--- NOTE | 2018-11-12 10:34 | NUR ---
PT ALERT AND ORIENTED TO PERSON AND PLACE. CALM AND COOPERATIVE WITH ASSESSMENT. MED COMPLIANT. NO AGRESSION NOTED. PT IS SITTING IN RECLINING CHAIR WATCHING TV WITH PEERS AT THIS TIME. NO S/SX OF DISTRESS NOTED OR VOICED. REDIRECT AND REORIENT NEEDED. FALL PRECAUTIONS IN PLACE. WILL CPOC.
[2018-11-12 20:36] VITALS: BP 133/70
[2018-11-13 09:15] VITALS: BP 155/58
--- NOTE | 2018-11-13 15:23 | NUR ---
PATIENT IS ALERT AND ORIENTED TO PERSON AND PLACE. CALM AND COOPERATIVE WITH CARE AND ASSESSMENT. MEDICATION COMPLIANT. FALL PRECAUTIONS IN PLACE. REORIENT AND REDIRECT NEEDED. WILL CONTINUE PLAN OF CARE.
[2018-11-13 19:27] VITALS: BP 117/59
--- NOTE | 2018-11-13 20:33 | NUR ---
RECEIVED IN DAYROOM. SITTING IN A CHAIR SOCIALIZING WITH PEERS. CALM AND COOPERATIVE WITH CARE AND ASSESSMENT. ENCOURAGE TO EXPRESS NEEDS. CONTINUE TO RELAX IN CHAIR SOCIALIZING WITH PEERS. CONTINUE PLAN OF CARE
[2018-11-14 07:47] VITALS: BP 147/86
--- NOTE | 2018-11-14 11:19 | NUR ---
ATIVAN 0.5MG PO GIVEN PER DR. NEFF FOR ANXIETY. WILL CONTINUE TO MONITOR Q 15 MINUTES FOR SAFETY.
--- NOTE | 2018-11-14 12:24 | PN ---
PATIENT:LIZBETH DANIELSON MEDICAL RECORD: [id number] LOCATION:[facility] ADMISSION DATE: 09/04/18 PROGRESS NOTE DATE OF SERVICE: 11/13/2018 SUBJECTIVE: The patient's case was discussed with staff. She has no new complaint. OBJECTIVE: The patient has no change in her clinical condition. ASSESSMENT: No change. PLAN: The patient has been in this hospital since 09/04/2018. She has been ready for discharge for many weeks now. At this point, it looks as though there is a possibility of getting her into a local [facility]. I know the manager social responsibility menu planner has done everything that is within her power. It is quite complicated and I think reading through the discharge planning notes will explain the situation, but this patient does not need to be here. She has nowhere else to go and I cannot discharge her until there is a place for her to go. I will discharge her as soon as those type arrangements are made. TRANSINT:[id number] Voice Confirmation ID: [id number] DOCUMENT ID: [id number] NICOLASA NEFF MD at 1224 CC: [id number] DICTATION DATE: 11/13/18 1450 COMMUTATOR REPAIRER: 11/13/18 1528 ADM IN [place] [place] [address]
--- NOTE | 2018-11-14 13:37 | NUR ---
DISCHARGED TO [facility]. LEFT AMBULATORY WITH 3 BAGS OF BELONGINGS. CALM AND SMILING.
--- NOTE | 2018-11-18 12:21 | DS ---
PATIENT:LIZBETH DANIELSON :54 MEDICAL RECORD: [id number] DISCHARGE SUMMARY ADMISSION DATE: 09/04/18 DISCHARGE DATE: 11/14/18 IDENTIFYING DATA: The patient is 67 years old and she is known to me from previous clinical contact. The patient has a known history of vascular dementia. She was admitted here for the third time on September 04. At that time, the circumstances were she had signed herself out of a long term against medical advice and then went to a former apartment complex that she lived in and was demanding to be let in. She had not lived there for a long time. She no longer had any right to be there. She could not be reasoned with and the situation became heated and ugly. The police and adult protective services were involved. Adult protective service has had contact with her before and they placed her on a hold and indicated that they would seek guardianship. She was subsequently admitted here. The patient was delusional. She felt that her brother was stealing money from her. She was clearly impaired cognitively and quite agitated. She was unable to care for herself or make reasonable decisions. She was angry and threatening toward others. 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 HOSPITAL COURSE: The patient was admitted to the hospital and fully evaluated from both a medical, psychological, and social standpoint. She was treated with both mood stabilizing and memory enhancing medications along with some antipsychotic medication and she showed very rapid improvement. Adjustments were made to her medications and she was ready for discharge. Unfortunately, the issues regarding discharge were quite complex. It seems that the patient's brother is also beginning to have cognitive slippage and he was not assisting with the paperwork that needed to be done. Adult protective services had initially indicated they would take custody of her, but then they were trying to assist and help the brother to do that since it is obviously more appropriate for a family member than the state. There were financial issues regarding the long term placement. All of the issues regarding the headaches and problems in discharging the patient are well documented by our social media executive and casually mentioned by me in a number of progress notes, but the patient was ready for discharge in late September and was not discharged until early November because of these issues regarding placement. She could not live alone. She could not live with her brother and there was no other place for her to go. Finally, arrangements were made and she was discharged to the long term. DISCHARGE DIAGNOSES: AXIS I: Vascular dementia. AXIS II: None. AXIS III: Hypertension. AXIS IV: Moderate. AXIS V: Global assessment of functioning 40. PLAN: At the time of discharge, the patient was in good behavioral control and showed no evidence of acute or direct dangerousness to herself or others. She was quite stable, very appropriate, and I think will be an excellent resident on a long-term basis for the long term. There may be in a period of adjustment allowing her to settle into some new circumstances, but for a very long chunk of the hospitalization here she had absolutely no behavior problems and we provided DISCHARGE SUMMARY REPORT [id number] LIZBETH DANIELSON nothing except meals, laundry, medication, and of course most importantly supervision. TRANSINT:[id number] Voice Confirmation ID: [id number] DOCUMENT ID: [id number] NICOLASA NEFF MD at 1221 CC: [id number] DICTATION DATE: 11/16/18 1451 VP RESPIRATORY: 11/17/18 0213 DIS IN 11/14/18 [facility] [address] [place] [address]
--- NOTE | 2018-11-29 14:40 | PN ---
PATIENT:LIZBETH DANIELSON MEDICAL RECORD: [id number] LOCATION:[facility] ADMISSION DATE: 09/04/18 PROGRESS NOTE DATE OF SERVICE: 10/06/2018 SUBJECTIVE: Ms. Danielson is a 67-year-old female who left [facility]. They allowed her to sign out. There is some suspicion that might have been precipitated by lack of payment to them as brother has been unable or unwilling to make the necessary arrangements and payments to the nursing facility for his sister. whanau support worker has valiantly tried to get appropriate placement for this very pleasant, but confused lady, and brother has simply been unable to follow through on his end and getting anything done. Apparently, APS's stand has been that despite the fact they brought her here because she was not safe; because she is in a psych unit, they now consider her safe and will not intervene. Therefore, her discharge has been postponed secondary to not being able to place her because necessary paperwork is not getting done by the brother and again APS will not intervene. ASSESSMENT: Unchanged. PLAN: Continue hospitalization as the patient is simply not able to make it on her own. She is quite confused. Continue to try to get placement arranged. Case discussed with nursing. Chart reviewed and the patient interviewed. TRANSINT:[id number] Voice Confirmation ID: [id number] DOCUMENT ID: [id number] EHSAN GONZALES MD at 1440 CC: [id number] DICTATION DATE: 10/06/18 0757 FILTER WASHER AND PRESSER: 10/06/18 1453 DIS IN 11/14/[address] [address]
== END 2018-11-14 13:45 | DRG 884 ==
LOC: D.PSYCH 16:30
PROVIDERS: ADMIT Psychiatry & Neurology Psychiatry; ATTEND Psychiatry & Neurology Psychiatry
DX: F03.91 Unspecified dementia, unspecified severity, with behavioral disturbance (principal); N39.0 Urinary tract infection, site not specified; I10 Essential (primary) hypertension; E78.5 Hyperlipidemia, unspecified; E55.9 Vitamin D deficiency, unspecified; F41.9 Anxiety disorder, unspecified; B95.4 Other streptococcus as the cause of diseases classified elsewhere; R51 Headache; M54.5 Low back pain; M79.622 Pain in left upper arm; H10.10 Acute atopic conjunctivitis, unspecified eye

== ENCOUNTER 2020-01-01 09:53 | Inpatient (IN) | payer MEDICARE ==
[~2020-01-01] VITALS: Ht 165.1 cm; Wt 58.4 kg
[~2020-01-01 09:53] MED LIST changes: +ASPERCREME 5 OZ5 OZ TP; +ATIVAN IM; +ATIVAN0.5 MG PO; +CELEXA20 MG PO; +IBUPROFEN800 MG PO; +LIDODERM 5 %1 PATCH TRANSDERM; +LISINOPRIL10 MG PO
[2020-01-01] MEDS ORDERED: ARTIFICIAL TEARS (10:12)
[2020-01-01] MEDS ORDERED: CYMBALTA30 MG PO ×2 (10:17→16:38)
[2020-01-01] MEDS ORDERED: BUSPIRONE HCL30 MG PO (10:17)
[2020-01-01] MEDS ORDERED: CALCIUM 600 +1 EAC3 PO (10:17)
[2020-01-01] MEDS ORDERED: GEODON40 MG PO (10:18)
[2020-01-01] MEDS ORDERED: CHRONULAC30 ML PO (10:18)
[2020-01-01] MEDS ORDERED: FAMOTIDINE10 MG PO (10:18)
[2020-01-01] MEDS ORDERED: NAMENDA10 MG PO ×2 (10:19→16:42)
[2020-01-01] MEDS ORDERED: GABAPENTIN100 MG PO (10:20)
[2020-01-01] MEDS ORDERED: K-TAB10 MEQ PO (10:21)
[2020-01-01] MEDS ORDERED: ZINC-220220 MG PO (10:21)
--- NOTE | 2020-01-01 10:27 | NUR ---
UNABLE TO DO SUICIDE ASSESSMENT DUE TO PATIENTS MENTAL STATE.
[2020-01-01 10:29] LABS: BASOPHILS 0.2 % (0-2); HEMATOCRIT 40.1 % (36.0-48.0); HEMOGLOBIN 13.3 g/dL (12-16); IMMATURE GRANULOCYTES 0.4 % (0-5); LYMPHOCYTES 17.7 % (15-50); MCH 29.4 pg (26.0-34.0); MCHC 33.2 g/dL (31.0-37.0); MCV 88.7 fL (80.0-100.0); MEAN PLATELET VOLUME 9.2 fL (7.4-10.4); MONOCYTES 14.7 % (2-11); PLATELET COUNT 153 10x3/uL (130-400); RBC 4.52 10x6/uL (4.00-5.40); RDW 13.8 % (11.5-14.5)
[2020-01-01 10:39] LABS: CALC OSMOLALITY 286 mosm/kg (275-300); CALCIUM 8.5 mg/dL (8.5-10.1); CARBON DIOXIDE 27.4 mmol/L (21.0-32.0); CHLORIDE - SERUM 108 mmol/L (98-107); CREATININE - SERUM 0.8 mg/dL (0.6-1.3); GLUCOSE 84 mg/dL (74-106); POTASSIUM - SERUM 3.3 mmol/L (3.5-5.1); SODIUM 144 mmol/L (136-145); UREA NITROGEN 14 mg/dL (7-18); eGFR NON AFRICAN AMERICAN 76 mL/min (90-120)
[2020-01-01 10:46] LABS: BILIRUBIN NEGATIVE (NEGATIVE); KETONE NEGATIVE (NEGATIVE); NITRITE NEGATIVE (NEGATIVE); UROBILINOGEN NORMAL (NORMAL)
[2020-01-01 10:52] LABS: ALBUMIN 3.1 g/dL (3.4-5.0); ALKALINE PHOSPHATASE 54 U/L (30-120); ALT (SGPT) 18 U/L (10-68); BILIRUBIN - TOTAL 0.54 mg/dL (0.2-1.3); PROTEIN - SERUM 6.2 g/dL (6.4-8.2); THYROID STIMULATING HORMONE 2.61 uIU/mL (0.36-3.74)
[2020-01-01 10:54] LABS: UDS - AMPHET NEGATIVE QUAL (NEGATIVE); UDS - BARB NEGATIVE QUAL (NEGATIVE); UDS - BENZO POSITIVE QUAL (NEGATIVE); UDS - COCAINE NEGATIVE QUAL (NEGATIVE); UDS - OPIATE NEGATIVE QUAL (NEGATIVE); UDS - PCP NEGATIVE QUAL (NEGATIVE); UDS - THC NEGATIVE QUAL (NEGATIVE)
[2020-01-01] MEDS ORDERED: ASPERCREME 5 OZ5 OZ TOPICAL (16:35)
[2020-01-01] MEDS ORDERED: BENADRYL25 MG (16:36)
[2020-01-01] MEDS ORDERED: LISINOPRIL20 MG PO (16:42)
[2020-01-01] MEDS ORDERED: GABAPENTIN300 MG (16:43)
[2020-01-01] MEDS ORDERED: ASCORBIC ACID500 MG PO (17:16)
[2020-01-01] MEDS ORDERED: ZOFRAN4 MG PO (17:16)
[2020-01-01 17:52] VITALS: BP 151/75
--- NOTE | 2020-01-01 19:19 | NUR ---
PT ADMITTED TO [facility] PER DR. NEFF FOR ALTER MENTAL STATUS. PT WAS REPORTED TO HAVE HALLUCINATIONS, STATING PEOPLE WERE GOING TO AND YELLING AT [facility]. NURSE UNABLE TO COMPLETE A FULL MENTAL STATUS DUE TO PT BEING GROGGY. PT REC'D MEDS PROIR TO ADMISSION FOR COMBATIVE BEHAVIOR. FULL CODE. UNABLE TO OBTAIN WEIGHT. PT HAS MULTIPLE AREAS OF BRUISES IN MULTIPLE STAGES OF HEALING. PT IN BED. BED ALARM IN PLACE. AWAITING SARS-19 RESULTS.
[2020-01-01 20:00] VITALS: BP 151/75
--- NOTE | 2020-01-01 21:27 | NUR ---
RECEIVED PATIENT IN HER BED, RESTING QUIETLY, SHE RECEIVED PRN MEDS IN ER, NO MEDS TO BE GIVEN THIS EVENING. WILL CONTINUE TO MONITOR PATIENT
--- NOTE | 2020-01-01 23:24 | NUR ---
PATIENT GIVEN HALDOL AND ATIVAN FOR EXTREME PSYCHOSIS AND ANXIETY. SHE WAS THRASHING AROUND IN THE BED, HITTING THIS NURSE, TRYING TO BITE THIS NURSE, SHE WOULD SAY, "HELP ME, HELP ME", HOWEVER MOST OF HER WORDS WERE SPANISH (FLUENTLY), AFTER THE PRN SHE SETTLED SOME AND HELD MY HAND AND RUBBED MY HAND AND STARED INTENSELY AT ME, I WALKED AWAY AND SHE IMMEDIATLEY GOT UP AND STARTED SCREAMING AGAIN, GOT HER BACK INTO BED AND LET THE TECH SIT WITH HER. WILL MONITOR.
[2020-01-02 07:21] LABS: CHOL - HDL RATIO 4.2 ratio (2.3-4.1); LDL-HDL RATIO 2.8 ratio (1.5-3.5)
--- NOTE | 2020-01-02 08:25 | NUR ---
STAFF 2X TO ASSIST PT WITH BED CHANGE AND PERICARE. STAFF HAD TO HOLD PT TO AID WITH PERICARE. PT VERY COMBATIVE WITH STAFF DURING PERICARE. UNABLE TO REDIRECT BEHAVIOR. PT SPEAKS IN ANGUILLAN TO STAFF AND WILL NOT OPEN EYES. PT RAMBLES AND DOES NOT UNDERSTAND COMMANDS.
--- NOTE | 2020-01-02 09:27 | NUR ---
VERY CONFUSED.TALKING IN LITHUANIAN.TRYING TO GET OUT OF BED WITHOUT ASSIST.COMBATIVE WITH STAFF.KEEPS EYES CLOSED.HALDOL 2MG ,ATIVAN 0.5MG IM TO TO RT.DELTOID GIVEN.
--- NOTE | 2020-01-02 10:36 | NUR ---
PT CONTS TO BE COMBATIVE PREVIOUS IM PRN MEDICATIONS NOT EFFECTIVE. CALLED DR. NEFF FOR PRN MEDICATION ORDER. GEODON 20 MG IM Q 4 HOUR PRN. ADMINISTER MEDICATION IF NOT EFFECTIVE CALL DR. NEFF IN 30 MINS IF NOT EFFECTIVE.
--- NOTE | 2020-01-02 10:49 | NUR ---
VERY POOR RESPONSE TO HALDOL AND ATIVAN.CONTINUES TO TRY TO GET UP OUT OF RECLINER WITHOUT ASSIST.COMBATIVE WITH STAFF.KEEPS EYES CLOSED.VERY CONFUSED,TALKS IN KYRGYZ.WILL NOT REDIRECT.GEODON 20MG IM TO LEFT DELTOID GIVEN PER ORDERS.
[2020-01-02 12:33] VITALS: Ht 165.1 cm; Wt 58.4 kg
--- NOTE | 2020-01-02 12:55 | NUR ---
PT WAS COMBATIVE WITH STAFF. VERY VERY RESTLESS. UNABLE TO REDIRECT. PT CONTS TO SPEAK DANISH AND NOT LOOK AT STAFF. PT CONTS TO ATTEMPT TO CLIMB OUT OF CHAIR UNASSISTED. ATIVAN 0.5 MG IM AND HALDOL [address] NFEF ORDER. CHAIR ALARM IN PLACE AND ACTIVE. WILL CONT TO MONITOR. WILL REASSESS FOR EFFECTIVENESS.
--- NOTE | 2020-01-02 16:01 | NUR ---
RESTING QUIETLY IN RECLINER .OCCASSIONALLY SITS UP AND MOVES ARMS AROUND IF LOOKING FOR SOMETHING.KEEPS EYES CLOSED.WILL CONTINUE TO MONITOR FOR SAFETY AND CHANGES.
[2020-01-02 19:38] VITALS: BP 178/79
--- NOTE | 2020-01-03 00:19 | NUR ---
B) Patient is sedated and resting with eyes closed, difficult to arrouse, patient was medicated for aggressive behavior during prior shift, I) Administered scheduled medications crushed , monitored for safety R) Mediation compliant, sleeping quietly now, P) Continue plan of care.
--- NOTE | 2020-01-03 07:39 | NUR ---
The patient is awake and she is mumbling and yelling. She is trying to get up and get out of the hospital. She keeps saying "I am leaving." Staff assisted her to a lanny chair, but she is restless and very upset. She is not redirectable. Provide prescribed meds. Redirect as needed. She is unsteady. She has poor short term memory and poor insight into her situation. Continue POC.
--- NOTE | 2020-01-03 08:23 | NUR ---
PT BEGAN TO YELL AND SHOUT IN TANZANIAN. UNABLE TO REDIRECT PT AT THIS TIME. PT IS CONFUSED AND DISORIENTED. PT BECAME COMBATIVE WITH STAFF WHEN ATTEMPTED TO REDIRECT. GEODON [address] PER [address]. NOE ORDER. PT TOLERATED WELL. WILL CONT TO MONITOR AND REASSESS FOR EFFECTIVENESS.
--- NOTE | 2020-01-03 09:49 | NUR ---
PT SPIT MEDICATION OUT OF HER MOUTH STATING "EWW THATS NOT GOOD."
--- NOTE | 2020-01-03 10:20 | NUR ---
PT IS CONFUSED. ALERT TO SELF ONLY. PT IS NON MED COMPLIANT. PT IS COMBATIVE [facility] STAFF WHEN ATTEMPTING TO REDIRECT. UNABLE TO REDIRECT AND REORIENT PT AT THIS TIME. PT CONTS TO SPEAK IN LAO. PT SPIT OUT MEDICATIONS THIS A.M. PT REFUSES TO EAT. CONT TO ENCOURGE FOOD AND WATER. PT WILL NOT OPEN EYES TO KNOWLEDGE STAFF WHEN SPOKEN. PT REQUIRES MAX ASSISTANCE WITH ADLS. CHAIR ALARM IN PLACE AND ACTIVE. PT REQUIRES CONSTANT MONITORING AT ALL TIMES. WILL CONT PLAN OF CARE.
--- NOTE | 2020-01-03 12:30 | PSY ---
PATIENT NAME:LIZBETH DANIELSON MEDICAL RECORD: [id number] : 54 LOCATION:[facility]6 ADMISSION DATE: 01/01/20 ACCOUNT: [id number] PSYCHIATRIC EVALUATION DATE OF EVALUATION: 01/02/20 IDENTIFYING DATA: The patient is 69 years old and she is admitted to the hospital on a voluntary basis. CHIEF COMPLAINT: Combative aggressive behavior. HISTORY OF PRESENT ILLNESS: The patient lives in a local residential where she has been paranoid and disruptive behaviorally. She has no real recollection of this. She does have a history of dementia and has been hospitalized here multiple times. The last time she was here over a year ago. She apparently required a significant amount of medication upon arrival for agitation and she has been agitated today and is only marginally interviewable at this time. PAST MEDICAL HISTORY: Significant for hypertension. PAST PSYCHIATRIC HISTORY: Significant for an established diagnosis of dementia and at least 2-3 inpatient psychiatric stays related to behavior problems associated with that diagnosis. FAMILY HISTORY: Significant for cardiovascular disease. ALLERGIES: SULFA. CURRENT MEDICATIONS: Include lisinopril, Depakote and Aricept. SOCIAL HISTORY: The patient is single. She has never been . 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 MENTAL STATUS EXAMINATION: The patient is awake, alert and oriented to person and place, but not fully to time or situation. Her mood is flat. Her affect is constricted. Thought processes are circumstantial. Memory, concentration, and abstraction abilities are impaired. She denies that she would seek to harm herself or others. DIAGNOSTIC IMPRESSION: AXIS I: Vascular dementia. AXIS II: None. AXIS III: Hypertension. AXIS IV: Moderate. AXIS V: Global assessment of functioning is 30. PLAN: At this time, the patient is admitted to the hospital for a comprehensive medical, psychological, and social standpoint. She will be treated with both memory enhancing and mood stabilizing medications. Her long-term prognosis is guarded. TRANSINT:[id number] Voice Confirmation ID: [id number] DOCUMENT ID: [id number] NICOLASA NEFF MD at 1230 CC: [id number] DICTATION DATE: 01/02/20 1615 PRODUCTION CONTROLLER: 01/02/20 1645 ADM IN [facility] [address] [facility] [address]
[2020-01-03 13:54] LABS: CALC OSMOLALITY 293 mosm/kg (275-300); CALCIUM 8.7 mg/dL (8.5-10.1); CARBON DIOXIDE 28.6 mmol/L (21.0-32.0); CHLORIDE - SERUM 108 mmol/L (98-107); CREATININE - SERUM 0.7 mg/dL (0.6-1.3); GLUCOSE 113 mg/dL (74-106); POTASSIUM - SERUM 3.2 mmol/L (3.5-5.1); SODIUM 148 mmol/L (136-145); UREA NITROGEN 11 mg/dL (7-18); eGFR NON AFRICAN AMERICAN 88 mL/min (90-120)
--- NOTE | 2020-01-03 17:13 | NUR ---
pt sitting at table attempting to tug on another pt arm. nurse attempted to redirect behaviour. pt became aggressive wtih staff attempted to bite staff, scratch staff. Ativan 0.5 mg and Haldol [address] per [address] mcnally order. will monitor for effectiveness.
[2020-01-03 20:00] VITALS: BP 173/90
--- NOTE | 2020-01-04 04:05 | NUR ---
B.) PT IS ALERT AND ORIENTED TO SELF ONLY. SHE HAS POOR INSIGHT INTO HER SITUATION. SHE IS RECEIVED IN THE DAYROOM IN A GERICHAIR. SHE IS RESTLESS AT TIMES. HER AFFECT IS FLAT. SOME AGGRESSION NOTED WITH REDIRECTION. I.) PROVIDED PM MEDICATIONS PRESCRIBED. REDIRECT NEEDED. R.) COMPLIANT WITH ALL MEDICATIONS. DIFFICULT TO REDIRECT AT TIMES. P.) WILL CONTINUE TO MONITOR.
[2020-01-04 07:35] LABS: CALC OSMOLALITY 292 mosm/kg (275-300); CALCIUM 8.8 mg/dL (8.5-10.1); CARBON DIOXIDE 30.3 mmol/L (21.0-32.0); CHLORIDE - SERUM 109 mmol/L (98-107); CREATININE - SERUM 0.7 mg/dL (0.6-1.3); GLUCOSE 75 mg/dL (74-106); SODIUM 148 mmol/L (136-145); UREA NITROGEN 12 mg/dL (7-18); eGFR NON AFRICAN AMERICAN 88 mL/min (90-120)
[2020-01-04 07:40] LABS: POTASSIUM - SERUM 2.7 mmol/L (3.5-5.1)
--- NOTE | 2020-01-04 07:44 | NUR ---
Lab called on patient's potassium, critically low 2.7, notified Dr. Vale, she ordered electrolyte protocol.
--- NOTE | 2020-01-04 12:53 | NUR ---
The patient is anxious, but she has students sitting with her and she is taking her medication in her orange juice, but it is taking one sip at a time and it is a slow go. Provide prescribed meds. The patient is compliant with meds. Continue POC.
[2020-01-04 19:57] VITALS: BP 159/89
--- NOTE | 2020-01-04 22:02 | NUR ---
B.) PT IS ALERT AND ORIENTED TO SELF ONLY. SHE HAS POOR INSIGHT INTO HER SITUATION. NO AGGRESSION NOTED THIS SHIFT. SHE IS OBSERVED SWITCHING BETWEEN TURKMEN AND CHILEAN WHEN SPEAKING. I.) PROVIDED PM MEDICATIONS PRESCRIBED. REDIRECT OFTEN. R.) COMPLIANT WITH ALL MEDICATIONS. DIFFICULT TO REDIRECT. P.) WILL CONTINUE TO MONITOR.
[2020-01-05 07:09] LABS: CALC OSMOLALITY 282 mosm/kg (275-300); CALCIUM 8.2 mg/dL (8.5-10.1); CARBON DIOXIDE 31.5 mmol/L (21.0-32.0); CHLORIDE - SERUM 106 mmol/L (98-107); CREATININE - SERUM 0.7 mg/dL (0.6-1.3); GLUCOSE 75 mg/dL (74-106); POTASSIUM - SERUM 3.1 mmol/L (3.5-5.1); SODIUM 143 mmol/L (136-145); UREA NITROGEN 9 mg/dL (7-18); VALPROIC ACID (DEPAKOTE) 39.8 ug/mL (50.0-100.0); eGFR NON AFRICAN AMERICAN 88 mL/min (90-120)
--- NOTE | 2020-01-05 07:48 | NUR ---
The patient is awake and she is confused, she is fighting staff and she doesn't speak Peruvian, she garbles [place] Islander. She is able to walk and she is walking with two staff at her side. She has poor short term memory recall, poor insight into her situation, she knows her name only. Provide prescribed meds. This am her potassium remains low 3.1. Will follow electrolyte protocol. Provide prescribed meds. The patient needs her meds crushed in vanilla ensure, will attempt to provide them to her this am. Ativan 0.5 mg and Haldol 2 mg IM provided in her left gluteal. The patient continues to be very anxious and she is not redirectable. Continue POC.
--- NOTE | 2020-01-05 07:49 | NUR ---
AGGRESSIVE WITH STAFF.REPEATEDLY TRYING TO GET OUT OF CHAIR WITHOUT ASSIST.WILL NOT REDIRECT.ATIVAN 0.5MG AND HALDOL 2MG IM GIVEN TO LEFT BUTTOCK.AMBULATED IN HALLWAY PER TWO.
--- NOTE | 2020-01-05 08:30 | NUR ---
GOOD RESPONSE TO ATIVAN AND HALDOL.CALMER NOW AND MORE COMPLIANT WITH STAFF.VERY CONFUSED AND DISORIENTED.INCONTINENT OF BOWEL AND BLADDER.REQUIRES TOTAL CARE.WILL CIONTINUE WITH CURRENT PLAN OF CARE,MONITOR FOR CHANGES AND SAFETY.
[2020-01-05 10:15] VITALS: BP 147/86
--- NOTE | 2020-01-05 11:59 | PN ---
PATIENT:LIZBETH DANIELSON MEDICAL RECORD: [id number] LOCATION:[facility]z112 ADMISSION DATE: 01/01/20 PROGRESS NOTE DATE OF SERVICE: 01/03/2020 SUBJECTIVE: The patient's case was discussed with staff. She has no new complaint. OBJECTIVE: The patient is in good behavioral control, but she was p.r.n.'d earlier today. ASSESSMENT: Dementia. PLAN: The patient will be treated with a lower dose of Geodon. A Depakote level will be checked. TRANSINT:[id number] Voice Confirmation ID: [id number] DOCUMENT ID: [id number] NICOLASA NEFF MD at 1159 CC: [id number] DICTATION DATE: 01/03/20 1408 CIRCUITS ENGINEER: 01/03/20 2346 ADM IN [place] [id number] [place] [address]
--- NOTE | 2020-01-05 20:02 | NUR ---
RECEIVED IN DAYROOM SITTING IN A RECLINER AT THE TABLE. RESTLESS. ATTEMPTS TO STAND WITHOUT ASSIST CONSTANTLY. GABRIELLA ALARM SOUNDING. REDIRECT AND REOREINT NEEDED. VERY CONFUSED. CONTINUES TO BE RESTLESS IN RECLINER. CONTINUE PLAN OF CARE.
[2020-01-05 20:41] VITALS: BP 152/82
--- NOTE | 2020-01-06 09:00 | PN ---
PATIENT:LIZBETH DANIELSON MEDICAL RECORD: [id number] LOCATION:[facility]112 ADMISSION DATE: 01/01/20 PROGRESS NOTE DATE OF SERVICE: 01/05/2020 SUBJECTIVE: The patient's case was discussed with staff. She has no new complaint. OBJECTIVE: The patient is in good behavioral control, but earlier today she was not and required p.r.n. medication. ASSESSMENT: Vascular dementia. PLAN: The patient is not eating adequately. This is of grave concern. She also is not consistently taking her medications. This also is problematic as far as trying to manage her behaviors. Her situation is grave and it does appear that she is going to need hospice care if the circumstances do not improve. TRANSINT:[id number] Voice Confirmation ID: [id number] DOCUMENT ID: [id number] NICOLASA NEFF MD at 0900 CC: [id number] DICTATION DATE: 01/05/20 1310 GREEN MARKETING ANALYST: 01/05/20 2135 ADM IN [place] [id number] [place] [id number]
[2020-01-06 09:47] VITALS: BP 146/73
--- NOTE | 2020-01-06 10:56 | NUR ---
Nutrition Follow-up: Diet: Regular PO intake: ~28% average x last 9 meals Last BM: 01/06/20. Wt: 124.2# (01/05/20); Admit Wt: 126# (01/02/20) Meds noted: megace, zinc sulfate, micro-K, vit D, vit C Labs noted: Alb 3.1(L), K 3.1(L) Recommend continue current diet. Will add Ensure TID. Recommend continue megace (started 01/05/20). RD following.
--- NOTE | 2020-01-06 12:18 | NUR ---
PT IS AWAKE AND ALERT TO PERSON ONLY. CALM AND COOPERATIVE WITH ASSESSMENT. PT IS VERY ANXIOUS AT THIS TIME. PRESCRIBED MEDS PROVIDED PER ORDER. NONCOMPLIANT WITH MEDS THIS MORNING. REDIRECT AND REORIENT NEEDED. FALL PRECAUTIONS IN PLACE. WILL CPOC.
[2020-01-06 12:24] LABS: ALKALINE PHOSPHATASE 58 U/L (30-120); ALT (SGPT) 19 U/L (10-68); BILIRUBIN - TOTAL 0.52 mg/dL (0.2-1.3); CALC OSMOLALITY 288 mosm/kg (275-300); CALCIUM 8.9 mg/dL (8.5-10.1); CARBON DIOXIDE 30.7 mmol/L (21.0-32.0); CHLORIDE - SERUM 107 mmol/L (98-107); CREATININE - SERUM 0.8 mg/dL (0.6-1.3); GLUCOSE 98 mg/dL (74-106); POTASSIUM - SERUM 3.5 mmol/L (3.5-5.1); PROTEIN - SERUM 6.6 g/dL (6.4-8.2); SODIUM 145 mmol/L (136-145); eGFR NON AFRICAN AMERICAN 76 mL/min (90-120)
[2020-01-06 12:27] LABS: UREA NITROGEN 12 mg/dL (7-18)
--- NOTE | 2020-01-06 19:06 | NUR ---
RECEIVED IN DAYROOM. SITTING IN A CHAIR WITH PEERS AT HER SIDE. CALM AND COOPERATIVE WITH CARE AND ASSESSMENT. NO SIGNS OF AHLLUCINATIONS. REDIRECT AND REORIENT NEEDED. CONTINUES TO SIT CALMLY IN DAYROOM. CONTINUE PLAN OF CARE.
[2020-01-06 20:02] VITALS: BP 140/100
[2020-01-07 08:30] VITALS: BP 143/74
--- NOTE | 2020-01-07 09:11 | NUR ---
AWAKE AND ALERT TO PERSON ONLY. CALM AND COOPERATIVE WITH ASSESSMENT WITH CONFUSION NOTED. PT IS ANXIOUS AT THIS TIME. PRESCRIBED MEDS PROVIDED ORDERED. MED COMPLIANT. REDIRECT AND REORIENT NEEDED. FALL PRECAUTIONS IN PLACE. WILL CPOC.
--- NOTE | 2020-01-07 11:11 | PN ---
PATIENT:LIZBETH DANIELSON MEDICAL RECORD: [id number] LOCATION:[facility] ADMISSION DATE: 01/01/20 PROGRESS NOTE DATE OF SERVICE: 01/06/2020 SUBJECTIVE: The patient's case was discussed with staff. She has no new complaint. OBJECTIVE: She is tolerating her medicines well. She is still fairly restless. ASSESSMENT: Dementia. PLAN: I am going to increase the patient's Klonopin to assist with her agitation. She will be monitored for clinical changes associated with its use. TRANSINT:[id number] Voice Confirmation ID: [id number] DOCUMENT ID: [id number] NICOLASA NEFF MD at 1111 CC: [id number] DICTATION DATE: 01/06/20 1606 COLOR TELEVISION CONSOLE MONITOR: 01/07/20 0307 ADM IN [place] [id number] [place] [address]
--- NOTE | 2020-01-07 18:38 | NUR ---
RECEIVED IN DAYROOM. SITTING IN A CHAIR AT THE TABLE. RESTLESS. NO SIGNS OF HALLUCINATIONS. NOT YELLING OUT AT THIS TIME. COOPERATIVE WITH CARE AND ASSESSMENT. REDIRECT AND REORIENT NEEDED. COTNINUES TO BE RESTLESS. CONTINUE PLAN OF CARE.
[2020-01-07 20:20] VITALS: BP 134/58
--- NOTE | 2020-01-08 08:56 | PN ---
PATIENT:LIZBETH DANIELSON MEDICAL RECORD: [id number] LOCATION:[facility] ADMISSION DATE: 01/01/20 PROGRESS NOTE DATE OF SERVICE: 01/07/2020 SUBJECTIVE: The patient's case was discussed with staff. She has no new complaint. OBJECTIVE: The patient is in good behavioral control with limited insight about her situation. ASSESSMENT: Vascular dementia. PLAN: The patient's Effexor is going to be increased slightly. On the whole, I think she is calmer than she was yesterday. She has certainly declined dramatically since her last hospitalization here. She continues to not eat adequately and I am prescribing Megace to stimulate her appetite. TRANSINT:[id number] Voice Confirmation ID: [id number] DOCUMENT ID: [id number] NICOLASA NEFF MD at 0856 CC: [id number] DICTATION DATE: 01/07/20 1510 FRONT END SPECIALIST: 01/07/20 2159 ADM IN [place] [id number] [place] [address]
--- NOTE | 2020-01-08 09:54 | NUR ---
PT IS AWAKE AND ALERT TO PERSON ONLY. CALM AND COOPERATIVE WITH ASSESSMENT. PRESCRIBED MEDS PROVIDED ORDERED. MED COMPLIANT. PT IS RESTING IN RECLINING CHAIR IN DAYROOM WITH PEERS. REDIRECT AND REORIENT NEEDED. FALL PRECAUTIONS IN PLACE. WILL CPOC.
--- NOTE | 2020-01-08 10:28 | NUR ---
Nutrition Follow-up: Diet: Regular + Ensure TID PO intake: ~50% average x last 9 meals (90-100% x 3 meals yesterday)- appetite appears to be improving. Last BM: 01/07/20. Wt: 124.2# (01/05/20); Admit Wt: 126# (01/02/20) Meds noted: megace (started 01/05/20), zinc sulfate, micro-k, vit D, vit C Labs reviewed. Noted mild weight loss since admit. PO intake appears to have improved with appetite stimulant. Will continue to monitor. Recommend continue current diet and oral nutrition supplement. RD following.
[2020-01-08 13:17] VITALS: BP 123/71
[2020-01-08 20:19] VITALS: BP 98/73
--- NOTE | 2020-01-09 02:19 | NUR ---
B.) PT IS ALERT AND ORIENTED TO SELF ONLY. SHE HAS POOR INSIGHT INTO HER SITUATION. SHE IS UNABLE TO AMBULATE OR MAKE NEEDS KNOWN. SHE HAS EATEN MORE THIS SHIFT THAN IN THE PAST. NO AGGRESSION NOTED THIS SHIFT. I.) PROVIDED PM MEDICATIONS PRESCRIBED. REDIRECT NEEDED. R.) COMPLIANT WITH ALL MEDICATIONS. DIFFICULT TO REDIRECT. P.) WILL CONTINUE TO MONITOR.
[2020-01-09 09:39] VITALS: BP 132/65
--- NOTE | 2020-01-09 09:56 | NUR ---
The patient is awake, she knows her name, but she has poor insight into her situation, she awakened and staff were able to assist her with breakfast, she ate a little bit. She does not know where she is or the time. Provide prescribed meds. The patient was able to take her am meds crushed in pudding. She is not as restless as she has been. Continue POC.
--- NOTE | 2020-01-09 10:18 | PN ---
PATIENT:LIZBETH DANIELSON MEDICAL RECORD: [id number] LOCATION:[facility]112 ADMISSION DATE: 01/01/20 PROGRESS NOTE DATE OF SERVICE: 01/08/2020 SUBJECTIVE: The patient's case was discussed with staff. She has no new complaint. OBJECTIVE: The patient is calmer and eating better, but still very disorganized. ASSESSMENT: Vascular dementia. PLAN: The patient is going to be maintained on current medications. I will check a Depakote level. TRANSINT:[id number] Voice Confirmation ID: [id number] DOCUMENT ID: [id number] NICOLASA NEFF MD at 1018 CC: [id number] DICTATION DATE: 01/08/20 1551 KILN FURNITURE CASTER: 01/08/20 2019 ADM IN [place] [id number] [place] [address]
[2020-01-09 20:07] VITALS: BP 137/81
--- NOTE | 2020-01-09 21:36 | NUR ---
RECEIVED PATIENT IN DAYROOM, SHE IS CONFUSED, SHE APPEARS TO BE HAVING VISUAL HALLUCINATIONS, SHE IS REACHING WITH HER ARMS AND HANDS OUT IF SHE IS TRYING TO GRAB SOMETHING. MEDS CRUSHED IN PUDDING, SHE HAD TO BE FED THE MED AND THE REST OF THE PUDDING. SHE IS A TOTAL CARE PATIENT. WILL FOLLOW POC
[2020-01-10 07:35] LABS: CALC OSMOLALITY 279 mosm/kg (275-300); CALCIUM 8.5 mg/dL (8.5-10.1); CARBON DIOXIDE 28.5 mmol/L (21.0-32.0); CHLORIDE - SERUM 106 mmol/L (98-107); CREATININE - SERUM 0.7 mg/dL (0.6-1.3); GLUCOSE 97 mg/dL (74-106); POTASSIUM - SERUM 4.3 mmol/L (3.5-5.1); SODIUM 139 mmol/L (136-145); UREA NITROGEN 18 mg/dL (7-18); eGFR NON AFRICAN AMERICAN 88 mL/min (90-120)
[2020-01-10 09:00] VITALS: BP 135/77
--- NOTE | 2020-01-10 11:03 | NUR ---
The patient is sleepy today, but she awakens to eat, drink, and take medications. She is very confused, she has poor short term memory, and she has poor insight into her situation. She can stand, transfer, she has not walked today, she has not shown any aggression, S.I., or H.I. Provide prescribed meds, the patient is compliant with meds. Continue monitor her mood and behavior. Continue POC.
[2020-01-10 20:00] VITALS: BP 119/67
--- NOTE | 2020-01-10 21:30 | NUR ---
B) RECEIVED IN DAYROON SITTING IN RECLINER, ORIENTED TO SELF ONLY. SHE HAS POOR INSIGHT INTO SITUATION OR ABLE TO MAKE HER WANTS AND NEEDS KNOWN. CALM AND COOPERATIVE WITH CARE AND ASSESSMENT. I) ADMINISTERED SCHEDULED MEDICATIONS. REDIRECT AND REORIENT NEEDED. R) COMPLIANT WITH MEDICATIONS. DIFFICULT TO REDIRECT. P) CONTINUE PLAN OF CARE.
[2020-01-11 09:18] VITALS: BP 137/77
--- NOTE | 2020-01-11 12:37 | NUR ---
PT SITTING IN CHAIR AT TABLE WITH EYES CLOSED. PT IS CONFUSED AND ALERT TO SELF ONLY. CONFUSED AND ALERT TO SELF ONLY. PT DOES REACH FOR UNSEEN ITEMS. REDIRECT AND REORIENT NEEDED. PT CAN NOT MAKE NEEDS KNOWN. REQUIRES ASSISTANCE WITH ADLS. NO AGGRESSIVE BEHAVIOR NOTED. STAFF ASSIST FEEDS PT WITH MEALS. ENCOURAGE FOOD AND DRINKS. COMPLIANT WITH CRUSHED MEDS, VITALS AND ASSESSMENTS. CHAIR ALARM IN PLACE AND ACTIVE. WILL CONT PLAN OF CARE.
[2020-01-11 21:28] VITALS: BP 119/74
[2020-01-12 08:53] VITALS: BP 129/77
--- NOTE | 2020-01-12 12:00 | NUR ---
RECEIVED IN HALLWAY OUTSIDE OF NURSES STATION. CALM AND COOPERATIVE WITH CARE AND ASSESSMENT. HALLUCINATING AND REACHING FOR OBJECTS THAT AREN'T THERE. REDIRECT AND REORIENT NEEDED. EATING AT THIS TIME. CONTINUE PLAN OF CARE.
[2020-01-12 20:03] VITALS: BP 101/76
--- NOTE | 2020-01-12 21:10 | NUR ---
RECEIVED IN DAYROOM. SITTING CALMLY WITH PEERS AT HER SIDE. CALM AND COOPERATIVE WITH CARE AND ASSESSMENT. NO SIGNS OF HALLUCINATIONS. BEGAME TO CRY AT TIMES. REDIRECT AND REORIENT NEEDED. SITTING CALMLY IN DAYROOM AT THIS TIME. CONTINUE PLAN OF CARE.
--- NOTE | 2020-01-13 08:43 | NUR ---
PT RESTING IN RECLINING CHAIR WITH EYES CLOSED. RESPONDS TO VERBAL STIMULI. AWAKE AND ALERT TO PERSON ONLY. CALM AND COOPERATIVE WITH ASSESSMENT. PRESCRIBED MEDS PROVIDED ORDERED. MED COMPLIANT. PT REFUSED BREAKFAST X 3 THIS MORNING. ENCOURAGED PT TO EAT AND DRINK PER STAFF. FALL PRECAUTIONS IN PLACE. WILL CPOC.
[2020-01-13 08:49] VITALS: BP 140/70
--- NOTE | 2020-01-13 09:13 | PN ---
PATIENT:LIZBETH DANIELSON MEDICAL RECORD: [id number] LOCATION:[facility] ADMISSION DATE: 01/01/20 PROGRESS NOTE DATE OF SERVICE: 01/09/2020 SUBJECTIVE: The patient's case was discussed with staff. She has no new complaint. OBJECTIVE: The patient is calmer and eating better. She is still severely disorganized and has declined dramatically since she was here last. Although she is only 69 years old. Her dementia is late in fact, end-stage. TRANSINT:[id number] Voice Confirmation ID: [id number] DOCUMENT ID: [id number] NICOLASA NEFF MD at 0913 CC: [id number] DICTATION DATE: 01/09/20 1638 BRIM IRONER HAND: 01/09/20 1834 ADM IN [place] [place] [address]
[2020-01-13 11:29] LABS: ANION GAP 12.4 mmol/L (8-16); CALCIUM 9.2 mg/dL (8.5-10.1); CARBON DIOXIDE 28.1 mmol/L (21.0-32.0); CREATININE - SERUM 0.9 mg/dL (0.6-1.3); POTASSIUM - SERUM 4.5 mmol/L (3.5-5.1)
--- NOTE | 2020-01-13 19:44 | NUR ---
RECEIVED IN DAYROOM. SITTING AT THE TABLE WITH A PEERS AT HER SIDE. CALM AND COOPERATIVE WITH CARE AND ASSESSMENT. NO SIGNS OF HALLUCINATIONS. REDIRECT AND REORIENT NEEDED. CONTINEUS TO SIT CALMLY IN DAYROOM. CONTINUE PLAN OF CARE.
[2020-01-13 20:28] VITALS: BP 120/78
[2020-01-14 09:17] VITALS: BP 100/73
--- NOTE | 2020-01-14 12:00 | NUR ---
RECEIVED IN HALLWAY OUTSIDE OF NURSES STATION. RESTING IN RECLINER. CALM AND COOPERATIVE WITH CARE AND ASSESSMENT. HALLUCINATING AND REACHING FOR OBJECTS THAT AREN'T THERE. REDIRECT AND REORIENT NEEDED. EATING AT THIS TIME. CONTINUE PLAN OF CARE.
[2020-01-14 19:53] VITALS: BP 127/65
--- NOTE | 2020-01-14 22:08 | NUR ---
RECEIVED IN DAYROOM. SITTING IN A CHAIR WITH PEERS AT HER SIDE. CALM AND COOPERATIVE WITH CARE AND ASSESSMENT. NO SIGNS OF HALLUCINATIONS. REDIRECT AND REORIENT NEEDED. RESTING IN BED WITH EYES CLOSED AT THIS TIME. CONTINUE PLAN OF CARE.
--- NOTE | 2020-01-15 08:22 | PN ---
PATIENT:LIZBETH DANIELSON MEDICAL RECORD: [id number] LOCATION:[facility] ADMISSION DATE: 01/01/20 PROGRESS NOTE DATE OF SERVICE: 01/14/2020 SUBJECTIVE: The patient's case was discussed with staff. She has no new complaint. OBJECTIVE: The patient is calmer. She is eating and sleeping better. She is tolerating her medications well and certainly is much calmer than she had previously been. ASSESSMENT: Vascular dementia. PLAN: The patient had a therapeutic Depakote level 5 days ago. On the whole, I think she is improving, but her condition is still grave and the dementia is advanced. NTS:[id number] Voice Confirmation ID: [id number] DOCUMENT ID: [id number] NICOLASA NEFF MD at 0822 CC: [id number] DICTATION DATE: 01/14/20 1657 LOT PORTER: 01/15/20 0108 ADM IN [facility] [address] [id number]
--- NOTE | 2020-01-15 09:13 | NUR ---
Nutrition Follow-up: Diet: Regular + Ensure TID PO intake: ~92% average x last 9 meals Last BM: 01/15/20. Wt: 127# (01/12/20); Admit Wt: 130# (01/01/20) Meds noted: Megace ES (started 01/05/20), zinc sulfate, micro-K. Labs reviewed. Appetite appears to be improved on megace. Recommend continue current diet and oral nutrition supplement. RD following.
[2020-01-15 09:15] VITALS: BP 138/93
--- NOTE | 2020-01-15 11:16 | NUR ---
RECEIVED THIS AM RESTING IN RECLINER IN HALLWAY AT NURSES STATION.IS CONFUSED AND DISORIENTED.COMPLIANT WITH STAFF AND MEDS .OBSERVED PICKING UP UNSEEN OBJECTS.SPOON FED BREAKFAST,ATE 100%.KEEPS EYES CLOSED MOST OF THE TIME.WILL CONTINUE WITH CURRENT PLAN OF CARE,MONITOR FOR CHANGES AND SAFETY.
[2020-01-15 20:11] VITALS: BP 133/76
--- NOTE | 2020-01-15 22:40 | NUR ---
B) Patient is alert and oriented to self, very confused, I) Administered scheduled medications as ordered, redirected as needed, monitored for safety, R) Mediation compliant, gave her pudding with meds and she finished pudding with a spoon, she was still hungry so I gave her as second pudding and she ate it with her fingers??? P) Continue plan of care.
--- NOTE | 2020-01-16 08:48 | PN ---
PATIENT:LIZBETH DANIELSON MEDICAL RECORD: [id number] LOCATION:[facility] ADMISSION DATE: 01/01/20 PROGRESS NOTE DATE OF SERVICE: 01/15/2020 SUBJECTIVE: The patient's case was discussed with staff. She has no new complaint. OBJECTIVE: The patient is in good behavioral control with limited insight about her situation. She is eating much better, but unfortunately her cognitive change has no different. ASSESSMENT: No change in diagnoses. PLAN: Current medicines have been reviewed and will be maintained along with mesa therapies and activities. TRANSINT:[id number] Voice Confirmation ID: [id number] DOCUMENT ID: [id number] NICOLASA NEFF MD at 0848 CC: [id number] DICTATION DATE: 01/15/20 1543 KILN STACKER: 01/15/202026 ADM IN [facility] [address] [place] [address]
[2020-01-16 10:06] VITALS: BP 136/77
--- NOTE | 2020-01-16 12:51 | NUR ---
RESTING QUIETLY IN RECLINER.IS ORIENTED TO SELF,VERY CONFUSED.SPOON FED PER STAFF.APPETITE GOOD.COMPLIANT WITH STAFF AND MEDS.MEDS CRUSHED AND GIVEN IN PUDDING.OBSERVED ATTEMPTING TO MAIL SORTER AND DELIVERY UNSEEN OBJECTS IN THE AIR AND ON THE FLOOR AND TABLE.WILL CONTINUE WITH CURRENT PLAN OF CARE,MONITOR FOR SAFETY AND CHANGES.
[2020-01-16 20:03] VITALS: BP 153/79
--- NOTE | 2020-01-17 02:37 | NUR ---
B) Patient is alert and oriented to self, very confused, withdrawn, and unaware I) Administered scheduled medications as ordered, crushed medications R) Mediation compliant, needs to be fed by staff at times, P) Continue plan of care.
[2020-01-17 07:46] VITALS: BP 121/81
--- NOTE | 2020-01-17 09:09 | PN ---
PATIENT:LIZBETH DANIELSON MEDICAL RECORD: [id number] LOCATION:[facility] ADMISSION DATE: 01/01/20 PROGRESS NOTE DATE OF SERVICE: 01/16/2020 SUBJECTIVE: The patient's case was discussed with staff. She has no new complaint. OBJECTIVE: The patient has been in good behavioral control with no disruptive or agitated behaviors today. ASSESSMENT: Dementia. PLAN: The patient's Klonopin is going to be reduced slightly. Hopefully, she can be managed on this lower dose of 0.5 mg twice daily. Her long-term prognosis is guarded. I do believe she is approaching the point at which she can be returned to the [facility]. Unfortunately, her dementia is advanced despite her relative youth at 69 years of age. NTS:[id number] Voice Confirmation ID: [id number] DOCUMENT ID: [id number] NICOLASA NEFF MD at 0909 CC: [id number] DICTATION DATE: 01/16/20 1508 JIG WORKER: 01/16/202055 ADM IN [facility] [address] [place] [address]
--- NOTE | 2020-01-17 09:38 | NUR ---
pt sitting in chair at table at this time. pt is confused and alert to self only. redirect and reorient as needed. pt is calm and cooperative. pt is not restless at this time. pt is compliant with crushed meds, vitals and assessments. pt is not having any aggressive behaviors or yelling out. pt can not make needs known. pt requires assistance with adls. chair alarm in place and active. will cont plan of care.
--- NOTE | 2020-01-17 15:38 | NUR ---
STAFF NOTED ODOR FROM PT. SHOWER GIVEN. NO UTI NOTED PER LAB. UPON EXAMINATION SOME REDNESS NOTED AND VAGINAL DRYNESS NOTED. NEW ORDER: ESTRACE 0.01% HS AND NYSTATIN POWDER BID PER DR. WRIGHT ORDER.
[2020-01-17 20:33] VITALS: BP 147/98
--- NOTE | 2020-01-17 21:03 | NUR ---
B.) PT IS ALERT AND ORIENTED TO SELF ONLY. SHE HAS POOR INSIGHT INTO HER SITUATION. SHE IS TEARFUL AT TIMES. SHE IS RECEIVED IN THE DAYROOM IN A GERICHAIR. I.) PROVIDED PM MEDICATIONS PRESCRIBED. REDIRECT NEEDED. R.) COMPLIANT WITH ALL MEDICATIONS. DIFFICULT TO REDIRECT. P.) WILL CONTINUE TO MONITOR.
--- NOTE | 2020-01-18 07:44 | NUR ---
The is confused, she has poor insight into her situation, she knows her name, she is not speaking as much Indian today. She is incontinent, needs to be fed, and she is not walking at this time. She has not shown any aggression, but she gets frustrated with not being able to do or express herself.Provide prescribed meds. She takes her meds crushed in pudding. Continue POC.
[2020-01-18 08:12] VITALS: BP 126/83
--- NOTE | 2020-01-18 21:34 | NUR ---
B) Patient is alert and oriented to person, calm and cooperative this shift, I) Administered scheduled medications as ordered, monitored for safety, R) Mediation compliant, ambulated with assistance, able to make needs known, P) Continue plan of care.
[2020-01-18 21:45] VITALS: BP 113/53
[2020-01-19 08:11] VITALS: BP 133/77
--- NOTE | 2020-01-19 10:46 | NUR ---
The patient is awake and she is trying to keep her eyes open more, she is talking, but it is nonsensical. She is using less Slovenian. She can stand with mod to max assist to transfer. She has poor insight into her situation. Provide prescribed meds. The patient is compliant with meds. She tries to lift her legs up on the table. She has to be redirected. Provide prescribed meds. The patient is compliant with crushed meds in pudding. She is no longer yelling. She at times will point or pick at the air. Continue POC.
--- NOTE | 2020-01-19 16:29 | NUR ---
The patient continues to be tearful and she is anxious. Provided her ativan 0.5 mg po, will monitor her behavior and mood.
--- NOTE | 2020-01-19 20:36 | NUR ---
RECEIVED IN DAYROOM. SITTING IN A CHAIR WITH PEERS AT HER SIDE. CALM AND COOPERATIVE WITH CARE AND ASSESSMENT. NO SIGNS OF HALLUCINATIONS AT THIS TIME. REDIRECT AND REORIENT NEEDED. SITTING IN DAYROOM DURING GROUP AT THIS TIME. CONTINUE PLAN OF CARE.
[2020-01-19 20:41] VITALS: BP 123/72
[2020-01-20 09:00] VITALS: BP 131/88
--- NOTE | 2020-01-20 14:10 | NUR ---
SITTING UP IN RECLINER IN DAYROOM.ORIENTED TO SELF.TEARFUL.DOES NOT PARTICIPATE IN ACTIVITIES.VERY CONFUSED.KEEPS EYES CLOSED MOST OF THE TIME.OBSERVED REACHING FOR UNSEEN OBJECTS.VERY FIGIDITY,HAS OBJECTS ON TABLE IN FRONT OF HER AND PUSHES AND PULLS ON THEM FREQUENTLY.SPOON FED PER STAFF,GOOD RESPONSE TO MEGACE.INCONTIENT OF BOWEL AND BLADDER.WILL CONTINUE WITH CURRENT PLAN OF CARE,MONITOR FOR CAHNGES AND SAFETY.
--- NOTE | 2020-01-20 19:38 | NUR ---
RECEIVED IN DAYROOM. SITTING IN A CHAIR WITH PEERS AT HER SIDE. CALM AND COOPERATIVE WITH CARE AND ASSESSMENT. NOT YELLING OUT. NO SIGNS OF HALLUCINATIONS. REDIRECT AND REORIENT NEEDED. REDIRECT AND REORIENT NEEDED. CONTINUES TO SIT CALMLY IN DAYROOM. CONTINUE PLAN OF CARE.
[2020-01-20 20:06] VITALS: BP 115/68
[2020-01-21 08:58] LABS: CALC OSMOLALITY 273 mosm/kg (275-300); CALCIUM 8.5 mg/dL (8.5-10.1); CARBON DIOXIDE 24.1 mmol/L (21.0-32.0); CHLORIDE - SERUM 103 mmol/L (98-107); CREATININE - SERUM 0.7 mg/dL (0.6-1.3); GLUCOSE 77 mg/dL (74-106); POTASSIUM - SERUM 5.2 mmol/L (3.5-5.1); SODIUM 134 mmol/L (136-145); UREA NITROGEN 33 mg/dL (7-18); eGFR NON AFRICAN AMERICAN 88 mL/min (90-120)
[2020-01-21 09:00] VITALS: BP 149/81
--- NOTE | 2020-01-21 09:10 | PN ---
PATIENT:LIZBETH DANIELSON MEDICAL RECORD: [id number] LOCATION:[facility] ADMISSION DATE: 01/01/20 PROGRESS NOTE DATE OF SERVICE: 01/20/2020 SUBJECTIVE: The patient's case was discussed with staff. She has no new complaint. OBJECTIVE: The patient is in good behavioral control with limited insight about her condition. She tolerates her medicines well. ASSESSMENT: Vascular dementia. PLAN: Current medicines have been reviewed and will be maintained. Long-term prognosis is guarded. TRANSINT:[id number] Voice Confirmation ID: [id number] DOCUMENT ID: [id number] NICOLASA NEFF MD at 0910 CC: [id number] DICTATION DATE: 01/20/20 1645 MOLECULAR PHYSICIST: 01/21/20 0230 ADM IN [id number] [place] [address]
--- NOTE | 2020-01-21 18:02 | NUR ---
PT IS RESTING IN RECLINING CHAIR IN DAYROOM AT THIS TIME. CALM AND COOPERATIVE WITH ASSESSMENT. PRESCRIBED MEDS PROVIDED ORDERED. MED COMPLIANT. REDIRECT AND REORIENT NEEDED. FALL PRECAUTIONS IN PLACE. WILL CPOC.
[2020-01-21 20:27] VITALS: BP 113/67
--- NOTE | 2020-01-21 20:41 | NUR ---
RECEIVED IN DAYROOM. SITTING IN A CHAIR WITH EYES CLOSED. CALM AND COOPERATIVE WITH CARE AND ASSESSMENT. NO SIGNS OF HALLUCINAUIONS. REDIRECT AND REORIENT NEEDED. CONTINUES TO REST QUIETLY WITH EYES CLOSED. CONTINUE PLAN OF CARE.
[2020-01-22 07:30] VITALS: BP 131/60
--- NOTE | 2020-01-22 10:03 | NUR ---
Nutrition Follow-up: Diet: Regular + Ensure TID PO intake: ~88% avearge x last 9 meals Last BM: 01/19/20. Wt: 126# (01/19/20); Admit Wt: 126# (01/02/20) Meds noted: micro-K, megace, zinc sulfate, lactulose, vit C, vit D Labs noted: Na 134(L), K 5.2(H) She is a feeder and is eating well. Meeting estimated nutrition needs. Recommend continue current nutrition regimen. RD following.
--- NOTE | 2020-01-22 11:20 | PN ---
PATIENT:LIZBETH DANIELSON MEDICAL RECORD: [id number] LOCATION:[facility] ADMISSION DATE: 01/01/20 PROGRESS NOTE DATE OF SERVICE: 01/21/2020 SUBJECTIVE: The patient's case was discussed with staff. She has no new complaint. OBJECTIVE: The patient denies intent to harm herself or others. She is significantly calmer than yesterday and is unfortunately only oriented to person. ASSESSMENT: Vascular dementia. PLAN: The patient's prognosis is exceedingly poor. Her dementia continues to advance and I am not optimistic about her long-term situation. Fortunately, she is still eating and drinking. Goal right now will be to make her comfortable, but I suspect we are looking at a hospice situation within the next few months. NTS:[id number] Voice Confirmation ID: [id number] DOCUMENT ID: [id number] NICOLASA NEFF MD at 1120 CC: [id number] DICTATION DATE: 01/21/20 1618 PROPOSAL MANAGER WRITER: 01/22/20 0035 ADM IN [facility] [address] [place] [address]
--- NOTE | 2020-01-22 16:59 | NUR ---
PT RESTLESS IN RECLINING CHAIR AT THIS TIME. ASSESSMENT COMPLETED. PRESCRIBED MEDS PROVIDED ORDERED. MED COMPLAINT. REDIRECT AND REORIENT NEEDED. FALL PRECAUTIONS IN PLACE. WILL CPOC.
--- NOTE | 2020-01-22 20:10 | NUR ---
B.) PT IS ALERT AND ORIENTED TO SELF ONLY. SHE HAS POOR INSIGHT INTO HER SITUATION. SHE IS RECEIVED IN A GERICHAIR AND IS VERY RESTLESS. SHE IS CRYING AND RELATES THAT SHE WANTS TO GO TO BED. I.) PROVIDED PM MEDICATIONS PRESCRIBED. REDIRECT NEEDED. R.) COMPLIANT WITH ALL MEDICATIONS. DIFFICULT TO REDIRECT. P.) WILL CONTINUE TO MONITOR.
--- NOTE | 2020-01-22 20:15 | NUR ---
PT HAVING DIFFICULTY SWALLOWING APPLESAUCE THIS SHIFT. WILL INFORM DR. WRIGHT IN THE MORNING. WILL CONTINUE TO MONITOR.
--- NOTE | 2020-01-22 20:26 | NUR ---
PT TEARFUL AND RESTLESS. UNABLE TO REDIRECT. ADMINISTERED PRN ATIVAN 0.5 MG IM. WILL CONTINUE TO MONITOR.
--- NOTE | 2020-01-22 21:35 | NUR ---
PT IS STILL RESTLESS IN THE BED. BED ALARM ON AND WORKING. WILL CONTINUE TO MONITOR.
[2020-01-22 22:38] VITALS: BP 132/74
[2020-01-23 07:40] VITALS: BP 140/79
--- NOTE | 2020-01-23 10:16 | NUR ---
The patient is awake and she is pleasant, she has poor insight into her situation. She keeps her eyes closed most of the time. She has not spoken much today. She is calm. Provide prescribed meds. The patient is compliant with meds. She does not interact in groups. She needs to be fed by staff unless it is finger foods. She can stand and ambulate with staff assist. Continue POC.
--- NOTE | 2020-01-23 11:18 | PN ---
PATIENT:LIZBETH DANIELSON MEDICAL RECORD: [id number] LOCATION:[facility] ADMISSION DATE: 01/01/20 PROGRESS NOTE DATE OF SERVICE: 01/22/2020 SUBJECTIVE: The patient's case was discussed with staff. She has no new complaint. OBJECTIVE: The patient is in good behavioral control with poor insight about her situation. ASSESSMENT: Vascular dementia. PLAN: The patient has improved. I am happy that she is still eating, although it is taking an almost heroic effort on the part of nursing staff to get her to do so. I fear her long-term prognosis is extremely tenuous given the fact that there are a few facilities that have the staff to devote one person for over an hour at each meal trying to get her to eat. TRANSINT:[id number] Voice Confirmation ID: [id number] DOCUMENT ID: [id number] NICOLASA NEFF MD at 1118 CC: [id number] DICTATION DATE: 01/22/20 1249 EMBEDDED SYSTEMS SOFTWARE ENGINEER: 01/22/20 1617 ADM IN [facility] [address] [place] [address]
--- NOTE | 2020-01-23 14:25 | NUR ---
The patient remains anxious, staff attempted to give her activities that she can do to stay busy, but she then put the letters in her panties. She is in a w/c now and she is scooting the chair all around in the Nurses Station. She is touching everywhere and getting into everything. Ativan 0.5 mg po given now.
--- NOTE | 2020-01-23 19:55 | NUR ---
B.) PT IS ALERT AND ORIENTED TO SELF ONLY. SHE HAS POOR INSIGHT INTO HER SITUATION. SHE IS RECEIVED IN A WHEELCHAIR IN THE HALLWAY WITH A NURSE. SHE IS VERY RESTLESS AND TEARFUL AT TIMES. SHE IS ABLE TO HELP WITH TRANSFERS. I.) PROVIDED PM MEDICATIONS PRESCRIBED. REDIRECT OFTEN. R.) COMPLIANT WITH ALL MEDICATIONS. DIFFICULT TO REDIRECT. P.) WILL CONTINE TO MONITOR.
[2020-01-23 21:07] VITALS: BP 138/74
[2020-01-24 08:00] VITALS: BP 129/68
--- NOTE | 2020-01-24 08:02 | NUR ---
The patient is in her bed this am, resting easily, she is not showing any restlessness while she is sleeping. Will assist her up in a gerichair for breakfast. She is not showing any jaimee, yelling, or aggression today. Provide prescribed meds. The patient takes her meds crushed in pudding. Continue to monitor and continue POC.
--- NOTE | 2020-01-24 12:09 | NUR ---
NURSE ADMINISTED HALDOL [address] SAEED ORDER. PT IS VERY RESTLESS, CRYING AND UNABLE TO TELL WHY SHE WAS CRYING. PTS CONT TO REACH OUR FOR THINGS ON THE TABLE. UNABLE TO REDIRECT OR CONSOLE. WILL CONT TO MONITOR FOR EFFECTIVENESS.
[2020-01-24 20:36] VITALS: BP 114/67
--- NOTE | 2020-01-24 23:00 | NUR ---
B) PATIENT IS ALERT AND ORIENTED TO SELF ONLY. SHE HAS POOR INSIGHT INTO HER SITUATION. SHE WAS QUIET AND COOPERATIVE. NO AGGRESSION TONIGHT. I) ADMINISTER SCHEDULED MEDICATIONS, REDIRECT NEEDED. R) COMPLIANT WITH TAKING MEDICATIONS CRUSHED IN PUDDING. SHE IS DIFFICULT TO REDIRECT. P) CONTINUE PLAN OF CARE.
[2020-01-25 09:56] VITALS: BP 110/61
--- NOTE | 2020-01-25 11:11 | NUR ---
PT SITTING IN CHAIR. RESTLESS. PT IS CRYING. UNABLE TO REDIRECT PTS BEHAVIOR. PT IS CONFUSED AND ORIENTED TO SELF ONLY. NO AGGRESSION NOTED. PT IS COMPLIANT WITH CRUSHED MEDS, VITALS AND ASSESSMENTS. PT CAN NOT MAKE NEEDS KNOWN. PT CAN AMBUALTE WITH 2X ASSISTANCE. PT DOES EAT WELL WITH ASSISTANCE. PT IS INCONTIENT. CHAIR ALARM IN PLACE AND ACTIVE. WILL CONT PLAN OF CARE.
--- NOTE | 2020-01-25 12:36 | PN ---
PATIENT:LIZBETH DANIELSON MEDICAL RECORD: [id number] LOCATION:[facility] ADMISSION DATE: 01/01/20 PROGRESS NOTE DATE OF SERVICE: 01/23/2020 SUBJECTIVE: The patient's case was discussed with staff. She has no new complaint. OBJECTIVE: The patient denies that she would seek to harm herself and she is only oriented to person. She did require some p.r.n. medication last night for some mild agitation. ASSESSMENT: Vascular dementia. PLAN: The patient is still restless and distressed. She is not able to explain why or what is wrong. My suspicion is that she simply cannot understand sensory information and process it into anything meaningful and that she is anxious, distressed and frightened by her environment. I think it is appropriate to consider hospice care for her and I am going to do whatever is necessary pharmacologically to make her comfortable being fully aware that this may increase her risk for aspiration pneumonia. TRANSINT:[id number] Voice Confirmation ID: [id number] DOCUMENT ID: [id number] NICOLASA NEFF MD at 1236 CC: [id number] DICTATION DATE: 01/23/20 1144 ACCOUNT DEVELOPMENT MANAGER: 01/23/20 1222 ADM IN [address] [address] [place] [address]
--- NOTE | 2020-01-25 20:20 | NUR ---
B) RECEIVED IN DAYROOM SITTING IN RECLINER. CALM AND COOPERATIVE WITH CARE AND ASSESSMENT. SHE IS WANTING TECH TO STAY AT HER SIDE. SHE HAS WALKED HER IN DAYROOM. SHE HAS DIFFICULTY UNDERSTANDING WHAT IS ASKED OF HER AND IS FIGITTING WITH BLANKET AND REACH FOR NOT SEEN THINGS IN THE AIR. I) ADMINISTERED SCHEDULED MEDICATIONS CRUSHED IN PUDDING. REDIRECT FREQUENTLY. R) COMPLIANT WITH MEDICATIONS, BUT HAS DIFFICULTY WITH REDIRECTIONS. P) CONTINUE PLAN OF CARE.
--- NOTE | 2020-01-25 21:30 | NUR ---
COMPLAINING OF NAUSEA, ZOFRAN 4 MG PO GIVEN.
[2020-01-25 21:41] VITALS: BP 119/68
--- NOTE | 2020-01-25 23:03 | NUR ---
PATIENT VERY RESTLESS, CONSTANTLY GETTING UP OUT OF BED. ATIVAN 0.5 MG IM GIVEN IN LEFT GLUTEAL PER DESTIN HIGHTOWER RN
--- NOTE | 2020-01-25 23:48 | NUR ---
PATIENT STILL TRYING TO GET UP AND ALSO FOUND HER TRYING TO PULL HER HAIR OUT AND GETTING AGITATED WITH STAFF. HALDOL 20MG IM GIVEN IN RIGHT DELTOID IM PER DESTIN HIGHTOWER RN.
--- NOTE | 2020-01-26 01:10 | NUR ---
MEDICATIONS NOT EFFECTIVE. PLACE PATIENT IN RECLINER TO SEE IF THIS WOULD HELP.
--- NOTE | 2020-01-26 01:30 | NUR ---
HALDOL 2 MG AND ATIVAN 0.5 MG IM GIVEN PER SALEEM RODRIGUEZ RN FOR AGITATION, CONSTANTLY TRYING TO GET UP, HITTING AT STAFF, AND WAKING UP OTHER PATIENTS.
--- NOTE | 2020-01-26 02:15 | NUR ---
ALSO HAD TO STOP PATIENT FROM TRYING TO EAT HER FOAM EGGCRATE FOR CHAIR. WE GAVE HER SOME SAMY CRACKERS TO EAT.
--- NOTE | 2020-01-26 02:30 | NUR ---
MEDICATION NOT EFFECTIVE. CONTINUES TO BE RESTLESS. TRYING TO GET OUT OF CHAIR, AND AGITATATED WHEN RAHEL DIRECTED.
--- NOTE | 2020-01-26 03:52 | NUR ---
PATIENT GIVEN GEODON 20 MG IM DUE TO PATIENT STILL AWAKE, FIGIDTY, NON-STOP MOTION, SHE PUTS HER HANDS ON HER FOREHEAD, TUGGING AT HER GOWN, THROWING COVERS OFF OF HERSELF, THROWING PILLOW IN THE FLOOR, TUGGING AT THIS NURSE'S CLOTHES, SOMETIMES SHE LIFTS HER HAND IF SHE IS TRYING TO GRAB SOMETHING IN THE AIR, SHE IS MUMBLING WORDS THAT I CAN'T UNDERSTAND MOST OF THE TIME. PREVIOUS PRN INJECTIONS WERE NOT EFFECTIVE AT ALL. WILL MONITOR FOR EFFECTIVENESS.
[2020-01-26 08:47] VITALS: BP 114/69
--- NOTE | 2020-01-26 14:39 | NUR ---
RECEIVED IN HALLWAY OUTSIDE OF NURSES STATION. RESTING IN RECLINER WITH EYES CLOSED. AM MEDICATIONS HELD DUE TO OVERSEDATION. LATER BECAME MORE AWAKE AND WAS TAKING OFF HER CLOTHES IN DAYROOM. BECOMES SAD AND TEARFUL AT TIMES. REDIRECT AND REORIENT NEEDED. SITTING IN GROUP AT THIS TIME. CONTINUE PLAN OF CARE.
[2020-01-26 20:16] VITALS: BP 139/71
--- NOTE | 2020-01-26 20:22 | NUR ---
RECEIVED IN DAYROOM. SITTING IN A RECLINING CHAIR WITH A STAFF MEMBER AT HER SIDE. RESTLESS IN CHAIR. COOPERATIVE WITH CARE AND ASSESSMENT. NO SIGNS OF HALLUCINATIONS. REDIRECT AND REORIENT NEEDED. CONTINUES TO BE RESTLESS IN CHAIR. CONTINUE PLAN OF CARE.
--- NOTE | 2020-01-26 21:43 | NUR ---
PRN ZOFRAN 4 MG PO GIVEN FOR NAUSEA. RESTING IN BED WITH EYES CLOSED AT THIS TIME.
--- NOTE | 2020-01-27 08:26 | NUR ---
REC'D PT IN RECLINING CHAIR IN [facility] BY THE NURSES STATION. CALM AND COOPERATIVE WITH ASSESSMENT. PRESCRIBED MEDS PROVIDED ORDERED. MED COMPLIANT. REDIRECT AND REORIENT NEEDED. WILL CPOC.
[2020-01-27 08:45] VITALS: BP 110/64
[2020-01-27 20:03] VITALS: BP 148/79
--- NOTE | 2020-01-27 20:27 | NUR ---
RECEIVED IN DAYROOM. RESTLESS. HIGH ANXIETY. ATTEMPTS TO STAND CONTINUOUSLY. VERY CONFUSED. AGITATION WITH REDIRECTION IS INCREASING. UNABLE TO REDIRECT. PRN ATIVAN 0.5 MG IM GIVEN FOR ANXIETY AND PRN HALDOL 2 MG IM GIVEN FOR UNSAFE PSYCHOTIC BEHAVIOR. RESTING IN RECLINER WITH STAFF AT HER SIDE AT THIS TIME. CONTINUE PLAN OF CARE.
--- NOTE | 2020-01-27 22:04 | NUR ---
IN A RECLINER OUTSIDE OF NURSES STATION. CONTINUES TO BE RESTLESS. ATTEMPTS TO EXIT RECLINER WITHOUT ASSIST.
--- NOTE | 2020-01-28 03:31 | NUR ---
PT TEARFUL AND EXTREMEMLY RESTLESS. SHE IS ATTENDING TO VISUAL AND AUDITORY HALLUCINATIONS. ADMINISTERED PRN HALDOL 2 MG AND ATIVAN 0.5 MG FOR ANXIETY AND PSYCHOTIC BEHAVIORS. WILL CONTINUE TO MONITOR.
--- NOTE | 2020-01-28 04:01 | NUR ---
PT STILL RESTLESS AND CONFUSED. SHE IS STILL ATTENDING TO VISUAL HALLUCINATIONS. NO LONGER TEARFUL. AGGITATION WITH REDIRECTION. WILL CONTINUE TO MONITOR.
[2020-01-28 08:46] VITALS: BP 136/79
--- NOTE | 2020-01-28 14:00 | NUR ---
RECEIVED IN HALLWAY OUTSIDE OF NURSES STATION. RESTLESS. CONTINUOUSLY ATTEMPTING TO GET UP WITHOUT ASSISTANCE. GABRIELLA SOUNDING. RESISTIVE WITH CARE AND REDIRECTION. ANXIOUS AND AGITATED. RECEIVED MORNING MEDS BUT THEN BECAME MORE SEDATED AND ALL OTHER MEDS HELD TODAY. CONTINUE PLAN OF CARE.
--- NOTE | 2020-01-28 14:39 | PN ---
PATIENT:LIZBETH DANIELSON MEDICAL RECORD: [id number] LOCATION:[facility] ADMISSION DATE: 01/01/20 PROGRESS NOTE DATE OF SERVICE: 01/27/2020 SUBJECTIVE: The patient's case was discussed with staff. She has no new complaint. OBJECTIVE: The patient is not oriented at all today. She is not even answering questions about her name. She is pulling at her hair and displaying a very high level of distress. She did not eat well today. ASSESSMENT: Dementia. PLAN: The patient is end stage in her dementing illness. I am going to approach this from a palliative care hospice standpoint and we will treat her with medications simply to make her comfortable. TRANSINT:[id number] Voice Confirmation ID: [id number] DOCUMENT ID: [id number] NICOLASA NEFF MD at 1439 CC: [id number] DICTATION DATE: 01/27/20 1658 BUNCH TRIMMER MOLD: 01/28/20 0233 ADM IN [place] [id number] [place] [id number]
[2020-01-28 20:10] VITALS: BP 156/92
--- NOTE | 2020-01-28 20:15 | NUR ---
RECEIVED IN DAYROOM. SITTING IN A RECLINING CHAIR WITH PEERS AT HER SIDE. RESTLESS IN CHAIR. VERY CONFUSED. COOPERATIVE WITH CARE AND ASSESSMENT. PICKING AT UNSEEN OBJECTS. NOT YELLING OUT AT THIS TIME. CONTINUES TO SIT IN RECLINER IN DAYROOM. CONTINUE PLAN OF CARE.
--- NOTE | 2020-01-28 20:34 | NUR ---
HALDOL 2 MG PO GIVEN FOR INCREASED AGITATION, THROWING THINGS, TRYING TO TAKE OFF HER CLOTHES.
[2020-01-29 08:36] VITALS: BP 130/64
--- NOTE | 2020-01-29 08:38 | PN ---
PATIENT:LIZBETH DANIELSON MEDICAL RECORD: [id number] LOCATION:[facility] ADMISSION DATE: 01/01/20 PROGRESS NOTE DATE OF SERVICE: 01/28/2020 SUBJECTIVE: The patient's case was discussed with staff. She has no new complaint. OBJECTIVE: The patient is not sleeping or eating adequately. She is more comfortable today in her appearance. She is, however, somewhat sedated based upon what occurred last night. ASSESSMENT: Dementia. PLAN: This patient's condition is not improving despite her relative youth at 69 years of age, I consider her dementia to be advanced and her prognosis to be extremely poor. At our daily treatment team meetings, we are increasingly discussing the possibility that this is going to end up as a hospice referral. TRANSINT:[id number] Voice Confirmation ID: [id number] DOCUMENT ID: [id number] NICOLASA NEFF MD at 0838 CC: [id number] DICTATION DATE: 01/28/20 1611 MATERIALS DIRECTOR: 01/29/20 0036 ADM IN [place] [id number] [place] [address]
--- NOTE | 2020-01-29 14:44 | NUR ---
Nutrition Follow-up: Diet: Regular + Ensure with meals PO intake: ~67% average x last 6 meals Last BM: 01/29/20 x 2. Wt: 132.8# (01/26/20); Admit Wt: 130# (01/01/20) Meds noted: micro-k, Megace ES, vit D, vit C. No new labs Recommend continue current diet and oral nutrition supplements. RD following.
--- NOTE | 2020-01-29 15:48 | NUR ---
PATIENT QUITE DROWSY, SLEPT FOR MUCH OF THE SHIFT DESPITE EFFORTS TO KEEP PATIENT AWAKE AND INTERESTED IN GROUP. NIGHT NURSE REPORTED THAT PATIENT SLEPT ONLY 30 MINUTES LAST NIGHT. COMPLIANT WITH MEDICATIONS, NO ADVERSE BEHAVIORS. CONTINUE PLAN OF CARE.
[2020-01-29 20:08] VITALS: BP 113/58
--- NOTE | 2020-01-30 08:30 | PN ---
PATIENT:LIZBETH DANIELSON MEDICAL RECORD: [id number] LOCATION:[facility] ADMISSION DATE: 01/01/20 PROGRESS NOTE DATE OF SERVICE: 01/29/2020 SUBJECTIVE: The patient's case was discussed with staff. She has no new complaint. OBJECTIVE: The patient is in good behavioral control with poor insight about her condition. She tolerates her medicines well. She has not been aggressive today. ASSESSMENT: Vascular dementia. PLAN: The patient's condition is grave. The dementia is advanced and I am not sure that she is going to be able to maintain her body weight with her oral intake on a long-term basis. I have discussed again the possibility of referring her to hospice. I learned today additional information that her mother of Alzheimer disease in her 60s, so there clearly is a genetic component to this situation. TRANSINT:[id number] Voice Confirmation ID: [id number] DOCUMENT ID: [id number] NICOLASA NEFF MD at 0830 CC: [id number] DICTATION DATE: 01/29/20 1602 RUG SIZER: 01/29/20 2253 ADM IN [facility] [address] [place] [address]
[2020-01-30 09:43] VITALS: BP 126/67
--- NOTE | 2020-01-30 14:59 | NUR ---
PT IS VERY RESTLESS AT THIS TIME. PT HAS BEEN COMBATIVE AND RESTLESS. PT IS ALERT TO SELF ONLY. PT IS DIFFICULT TO REDIRECT AT TIMES. PT DOES NOT UNDERSTAND REDIRECTION DUE TO LOW COGNITIVE FUNCTIONING. PT CAN NOT MAKE NEEDS KNOWN. PT IS TOTAL ASSIST WITH ADLS. ENCOURAGE PT TO EAT AND DRINK. PT IS COMPLIANT WITH CRUSHED MEDS, VITALS AND ASSESSMENTS. CHAIR ALARM ON PLACE AND ACTIVE. CONT TO MONITOR FOR FALL PRECAUTIONS. WILL CONT PLAN OF CARE.
[2020-01-30 20:27] VITALS: BP 101/59
[2020-01-30 23:34] VITALS: BP 146/86
--- NOTE | 2020-01-31 03:20 | NUR ---
B) Patient is alert and oriented to self, very confused and anxious at times, I) Administered scheduled medications as ordered, monitored for safety R) Mediation compliant, sleeping quietly now in her bed, P) Continue plan of care.
--- NOTE | 2020-01-31 08:08 | NUR ---
The patient is very restless today, she keeps saying "I want to get out of here." She is asking to see her puppies and she says "I will never come back here." She is trying to get up and walk, staff toileted her and she is demanding they leave her alone, she is unsteady and they are by her side for safety, but she is fussing at them. She continues to try to get out of the chair, staff are sitting by her and she is pinching them, pulling hair, and trying to kick at them. Ativan 0.5 mg IM provided in her right deltoid. Will continue to sit by her and monitor her behavior.
--- NOTE | 2020-01-31 09:00 | NUR ---
The patient remains restless. Maren Chacon AT sitting by her side assisting to feed her and she is doing well eating, but she can not sit still, she is grabbing in the air and speaking word salad. She has poor insight into her situation. Provide meds crushed in pudding. The patient tolerated well. Continue to monitor her behavior and provide safety. Continue POC.
--- NOTE | 2020-01-31 09:02 | PN ---
PATIENT:LIZBETH DANIELSON MEDICAL RECORD: [id number] LOCATION:[facility] ADMISSION DATE: 01/01/20 PROGRESS NOTE DATE OF SERVICE: 01/30/2020 SUBJECTIVE: The patient's case was discussed with staff. She has no new complaint. OBJECTIVE: The patient is distressed and unable to communicate adequately. ASSESSMENT: Vascular dementia. PLAN: Comfort care measures are in place and hospice consult is pending. TRANSINT:[id number] Voice Confirmation ID: [id number] DOCUMENT ID: [id number] NICOLASA NEFF MD at 0902 CC: [id number] DICTATION DATE: 01/30/20 1626 PHYSICIAN PRACTICE CONSULTANT: 01/30/20 2105 ADM IN [place] [id number] [place] [address]
[2020-01-31 20:19] VITALS: BP 89/49
--- NOTE | 2020-01-31 21:10 | NUR ---
PT IS RESTLESS AND AGGRESSIVE WITH REDIRECTION. SHE IS GRABBING AT STAFFS CLOTHING. UNABLE TO REDIRECT. ADMINISTERED PRN DEBRA MARINO. WILL CONTINUE TO MONITOR.
--- NOTE | 2020-01-31 22:13 | NUR ---
PT IS STILL RESTLESS BUT NO AGGRESSION AT THIS TIME. WILL CONTINUE TO MONITOR.
--- NOTE | 2020-02-01 04:00 | NUR ---
B) Patient is alert and oriented to self, restless nad not sleeping, calm only when one on one with staff, sometimes she tries to bite staff, I) Adminstered scheduled medications as ordered, crushed in pudding, R) Medication compliant, anxious and needy, P) Continue plan of care.
--- NOTE | 2020-02-01 08:45 | NUR ---
The patient is getting irritable and anxious, she is trying to flip out of the gerichair, she is hitting at staff, but she is hitting at the air if no one is around her. She is talking nonsensical but every now and then she calls someone a "B--ch" She is pinching and pulling on staff. Ativan 0.5 mg IM in right hip provided, will monitor.
--- NOTE | 2020-02-01 17:34 | NUR ---
The patient is acting up, provided her meds in [facility], she spit some of it out. She is in an irritable mood. She ate a couple bites of her chicken, but threw half of her sandwich toward another patient. The other patient is talking to her and she told him "The commissary is on the other side, just go there." Right now he is talking and laughing it is nonsensical, but she is being quiet.
--- NOTE | 2020-02-01 17:47 | NUR ---
The patient is calm and quiet at the time she is not fussing and she is not acting anxious. She is solemn.
[2020-02-01 21:30] VITALS: BP 122/68
--- NOTE | 2020-02-02 02:39 | NUR ---
B) Patient is alert and oriented to self, very confused and anxious, constantly pulling aon anything within reach, I) Administered scheduled medications as ordered, PRN Geodon 10 mg IM given at 19:50 for anxiety R) Medcation compliant, resting now quietly in her bed P) Continue plan of care.
--- NOTE | 2020-02-02 08:08 | NUR ---
The patient awakened in a fiesty mood, calling names, cursing, trying to kick, bite, and punch at staff. She was toileted and weighed, but after that she became aggressive. Ativan 0.5 mg IM in the right deltoid provided. She continues to be irritable and restless. She is in a lanny chair, staff walked her to the toilet and the scale. She is unsteady, but she is able to walk with assist. Solomon barraza.
--- NOTE | 2020-02-02 08:36 | NUR ---
The patient is bucking and angry and fighting staff. When I got to the table she was half way up on the table and fighting. She did not want staff to help her or touch her, it is breakfast. Crushed meds and put them in her breakfast. She eats and drinks well and once she got all of her meds and her am meds in she began to settle down. Provide prescribed meds. The patient is compliant with meds. Continue POC.
--- NOTE | 2020-02-02 19:44 | NUR ---
RECECIVED IN DAYROOM. SITTING IN A RECLINING CHAIR WITH STAFF AT HER SIDE. RESTLESS. RESISTANT TO CARE. REDIRECT AND REORIENT NEEDED. CONTINUES TO BE RESTLESS AT TIMES. CONTINUE PLAN OF CARE.
[2020-02-02 20:31] VITALS: BP 103/59
--- NOTE | 2020-02-03 10:00 | NUR ---
PT IS VERY CONFUSED. ASSESSMENT COMPLETED. PT IS KICKING AT STAFF, BITING SELF, HITING SELF ON HEAD. PT HIT STAFF MEMEBER IN STOMACH. PT IS UNABLE TO REDIRECT AT THIS TIME. PRN GEODON 20MG IM GIVEN PER PRN ORDER. WILL CPOC.
--- NOTE | 2020-02-03 11:23 | NUR ---
ROBERT CALLED PT'S BROTHER, SUJIT, TO DISCUSS PT'S NEEDS FOR DISCHARGE AND PT'S DISEASE PROGRESSION. ROBERT LEFT VOICEMAIL FOR CALL BACK.
--- NOTE | 2020-02-03 14:06 | NUR ---
SW CONTACTED PT'S BROTHER AND GOT PERMISSION TO DO HOSPICE REFERRAL.
--- NOTE | 2020-02-03 14:09 | NUR ---
SW CONTACTED [facility] AND THEY STATED THEY ALLOWED [facility], [facility], AND [facility]. SW WILL CONTACT PT'S BROTHER TO DISCUSS OPTIONS.
--- NOTE | 2020-02-03 19:54 | NUR ---
RECEIVED IN DAYROOM. SITTING IN A CHAIR WITH PEERS AT HER SIDE. COOPERATIVE WITH CARE AND ASSESSMENT BUT RESTLESS. BECOMING INCREASINGLY RESTLESS AND RESISTANT TO CARE. INCREASING ANXIETY AND AGITATION. PRN GEODON 20 MG IM GIVEN FOR ANXIETY. CONTINUE PLAN OF CARE.
[2020-02-03 20:45] VITALS: BP 134/82
--- NOTE | 2020-02-03 22:18 | NUR ---
VERY CONFUSED. CONTINUES TO BE VERY RESTLESS.
--- NOTE | 2020-02-03 23:17 | NUR ---
INCREASING ANXIETY AND RESTLESSNESS. INCREASING AGITATION. PRN ATIVAN 0.5 MG IN GIVEN FOR ANXIETY AND PRN HALDOL 2 MG IM FOR PSYCHOTIC BEHAVIOR. ONE ON ONE CARE REQUIRED FOR SAFETY.
--- NOTE | 2020-02-04 03:31 | NUR ---
CONTINUES TO NEED ONE ON ONE CARE. RESTLESS,
--- NOTE | 2020-02-04 04:18 | NUR ---
INCREASING ANXIETY. COMBATIVE WITH REDIRECTION. ONE ON ONE CARE. PRN ATIVAN 0.5 MG IM GIVEN FOR ANXIETY AND HALDOL 2 MG IM GIVEN FOR PSYCHOTIC BEHAVIOR. CONTINUE ONE ON ONE CARE FOR SAFETY.
[2020-02-04 08:32] VITALS: BP 148/95
--- NOTE | 2020-02-04 10:30 | NUR ---
AWAKE AND ALERT TO PERSON ONLY. CALM AND COOPERATIVE WITH ASSESSMENT AT THIS TIME. PT IS VERY CONFUSED AND AGGRESSIVE WITH STAFF AT TIMES. PT BITES BILATERAL ARMS, PULLS HAIR, SPITS, AND SWINGS AT STAFF. PRESCRIBED MEDS PROVIDED ORDERED. MED COMPLIANT. REDIRECT AND REORIENT NEEDED. FALL PRECAUTIONS IN PLACE. WILL CPOC.
--- NOTE | 2020-02-04 13:41 | NUR ---
ROBERT called and left vm on pt's brother Davi's phone. ROBERT DID NOT RECIEVE CALL BACK YESTERDAY ON WHICH HOSPICE HE WANTS HIS SISTER TO GO ON. ROBERT WILL ATTEMPT AGAIN LATER.
--- NOTE | 2020-02-04 17:13 | PN ---
PATIENT:LIZBETH DANIELSON MEDICAL RECORD: [id number] LOCATION:[facility] ADMISSION DATE: 01/01/20 PROGRESS NOTE DATE OF SERVICE: 02/03/2020 SUBJECTIVE: The patient's case was discussed with staff. She has no new complaint. OBJECTIVE: The patient is very disorganized. She has poor insight about her situation. She is biting herself and pulling her hair. She cannot explain what is wrong. She is clearly experiencing a high degree of emotional distress with a low amount of specificity regarding the issue. ASSESSMENT: Dementia. PLAN: The patient is going to have her Seroquel and Klonopin consolidated into a bedtime dose. TRANSINT:[id number] Voice Confirmation ID: [id number] DOCUMENT ID: [id number] NICOLASA NEFF MD at 1713 CC: [id number] DICTATION DATE: 02/03/20 1626 GLASSINE MACHINE TENDER: 02/04/20 0006 ADM IN [place] [id number] [place] [id number]
[2020-02-04 19:56] VITALS: BP 118/85
--- NOTE | 2020-02-04 21:43 | NUR ---
RECEIVED IN DAYROOM. SITTING IN A RECLINING CHAIR WITH PEERS AT HER SIDE. CALM AND COOPERATIVE WITH CARE AND ASSESSMENT. RESTLESS AT TIMES IN CHAIR. REDIRECT AND REORIENT NEEDED. RESTING IN A RECLINER OUTSIDE OF NURSES STATION AT THIS TIME. CONTINUES PLAN OF CARE.
--- NOTE | 2020-02-05 08:30 | PN ---
PATIENT:LIZBETH DANIELSON MEDICAL RECORD: [id number] LOCATION:[facility] ADMISSION DATE: 01/01/20 PROGRESS NOTE DATE OF SERVICE: 02/04/2020 SUBJECTIVE: The patient's case was discussed with staff. She has no new complaint. OBJECTIVE: The patient is still not sleeping adequately. She has limited insight about her situation and in fact is not even oriented today. ASSESSMENT: Dementia. PLAN: The patient's condition is advanced. She is appropriate for comfort care measures and I am going to increase her scheduled dose of Seroquel to 100 mg twice daily. TRANSINT:[id number] Voice Confirmation ID: [id number] DOCUMENT ID: [id number] NICOLASA NEFF MD at 0830 CC: [id number] DICTATION DATE: 02/04/20 173 SYNTHETIC STAPLE EXTRUDER: 02/05/20 0255 ADM IN [place] [id number] [place] [id number]
[2020-02-05 09:30] VITALS: BP 133/82
--- NOTE | 2020-02-05 11:40 | NUR ---
REC'D IN HALLWAY IN RECLINING CHAIR BY NURSES STATION. CALM AND COOPERATIVE WITH ASSESSMENT AT THIS TIME. PT CAN BE VERY RESTLESS AT TIMES IN CHAIR. REDIRECT AND REORIENT NEEDED. FALL PRECAUTIONS IN PLACE. WILL CPOC.
--- NOTE | 2020-02-05 13:07 | NUR ---
Nutrition Follow-up: Chart reviewed. Noted pt is a feeder and is refusing food sometimes. Diet: Regular + Ensure TID PO intake: ~34% average x last 9 meals (highly varied). She appears to eat 100% of meals when she does eat. She appears to be drinking ~1 can of Ensure/day as recorded by nursing into flowsheets. Last BM: 02/04/20. Wt: 127# (02/02/20); Admit Wt: 126# (01/02/20) Meds noted: megace (started 01/05/20). No new chem labs. Recommend continue current diet and oral nutrition supplements. Recommend continue feeding patient as necessary and continue appetite stimulant as medically feasible. RD following.
--- NOTE | 2020-02-05 14:31 | NUR ---
Patient rec'd up in wheelchair this am. frowning angry and slightly agitated. Patient was taking blankets rolling them up and attempting to throw at staff and other residents. placed resident on one to one until behaviors subsided. am meds administered without resistance. resident participated in a little group activities/session today. will continue to enourage to participate.
--- NOTE | 2020-02-05 19:35 | NUR ---
PT RESTLESS, ATTEMPTING TO GET OUT OF CHAIR WITHOUT ASSIST. SHE IS ATTEMPTING TO BITE STAFF, PUNCHING AND PINCHING STAFF WITH REDIRECTION. ADMINISTERED PRN DEBRA MARINO. WILL CONTINUE TO MONITOR.
[2020-02-05 20:00] VITALS: BP 116/50
--- NOTE | 2020-02-05 20:01 | NUR ---
PT STILL RESTLESS IN CHAIR. SHE IS AGGRESSIVE WITH REDIRECTION. WILL CONTINUE TO MONITOR.
--- NOTE | 2020-02-05 22:15 | NUR ---
B.) PT IS ALERT AND ORIENTED TO SELF ONLY. SHE HAS POOR INSIGHT INTO HER SITUATION. SHE IS RESTLESS AND ATTEMPTS TO GET OUT OF HER CHAIR OFTEN. SHE IS AGGRESSIVE WITH STAFF. SHE IS CONSTANTLY ATTEMPTING TO SCRATCH OR HIT STAFF. SHE IS SITTING OUTSIDE THE NURSES STATION WITH A TECH 1:1 FOR SAFETY. I.) PROVIDED PM MEDICATIONS PRESCRIBED. REDIRECT CONSTANTLY. R.) COMPLIANT WITH ALL MEDICATIONS. UNABLE TO REDIRECT. P.) WILL CONTINUE TO MONITOR.
[2020-02-06 08:07] VITALS: BP 127/68
--- NOTE | 2020-02-06 14:21 | NUR ---
Patient rec'd lying in a wheelchair with eyes closed.spoon fed her for breakfast as patient very drowsey. took meds crushed in pudding without difficulty. patient has slept most of the day with minimal behaviors, she had an earier episode of pushing and pulling on furniture or staff within her reach. one to one was provided until behavior substided. pain med given for generalized pain per scheduled. will continue to administer meds and assess mental changes as needed. one to one and group activities provided for patient participation.
--- NOTE | 2020-02-06 15:38 | PN ---
PATIENT:LIZBETH DANIELSON MEDICAL RECORD: [id number] LOCATION:[facility] ADMISSION DATE: 01/01/20 PROGRESS NOTE DATE OF SERVICE: 02/05/2020 SUBJECTIVE: The patient's case was discussed with staff. She has no new complaint. OBJECTIVE: The patient is in good behavioral control. She is sleeping more than she had been and unfortunately that seems to be the only relief from the emotional distress that she has. ASSESSMENT: Vascular dementia. PLAN: This patient's condition is grave. I continue to recommend hospice. Unfortunately, the social services manager has been unable to contact her family. Her family consists of a brother who is not very involved with the case. I am going to refer this to adult protective services if she is not able to contact him. TRANSINT:[id number] Voice Confirmation ID: [id number] DOCUMENT ID: [id number] NICOLASA NEFF MD at 1538 CC: [id number] DICTATION DATE: 02/05/20 1619 CORDUROY CUTTER OPERATOR: 02/06/20 0110 ADM IN [place] [id number] [place] [id number]
[2020-02-06 20:29] VITALS: BP 122/71
--- NOTE | 2020-02-06 20:48 | NUR ---
B.) PT IS ALERT AND ORIENTED TO SELF ONLY AT TIMES. SHE HAS POOR INSIGHT INTO HER SITUATION. SHE MISINTERPRETS SIMPLE TASKS SUCH COLLECT VITALS. SHE BECOMES AGGRESSIVE WITH STAFF AND ATTEMPTS TO BITE. SHE IS RECEIVED IN THE DAYROOM IN A GERICHAIR. SHE IS ATTENDING TO AUDITORY HALLUCINATIONS. I.) PROVIDED PM MEDICATIONS PRESCRIBED. REDIRECT OFTEN. R.) COMPLIANT WITH ALL MEDICATIONS. UNABLE TO REDIRECT. P.) WILL CONTINUE TO MONITOR.
[2020-02-07 08:53] LABS: BASOPHILS 0.4 % (0-2); EOSINOPHILS 4.5 % (0-7); HEMATOCRIT 48.6 % (36.0-48.0); HEMOGLOBIN 15.5 g/dL (12-16); IMMATURE GRANULOCYTES 0.7 % (0-5); LYMPHOCYTES 24.3 % (15-50); MCHC 31.9 g/dL (31.0-37.0); MEAN PLATELET VOLUME 9.5 fL (7.4-10.4); MONOCYTES 9.3 % (2-11); NEUTROPHILS 60.8 % (40-80); RBC 5.17 10x6/uL (4.00-5.40); RDW 14.5 % (11.5-14.5); WBC 7.4 10x3/uL (4.8-10.8)
[2020-02-07 09:01] LABS: PLATELET COUNT 197 10x3/uL (130-400)
[2020-02-07 09:51] VITALS: BP 104/78
[2020-02-07 11:19] LABS: ALBUMIN 3.3 g/dL (3.4-5.0); ALKALINE PHOSPHATASE 42 U/L (30-120); ALT (SGPT) 23 U/L (10-68); CALC OSMOLALITY 280 mosm/kg (275-300); CALCIUM 9.1 mg/dL (8.5-10.1); CARBON DIOXIDE 22.7 mmol/L (21.0-32.0); CHLORIDE - SERUM 105 mmol/L (98-107); CREATININE - SERUM 0.8 mg/dL (0.6-1.3); PROTEIN - SERUM 6.5 g/dL (6.4-8.2); SODIUM 138 mmol/L (136-145); UREA NITROGEN 33 mg/dL (7-18); eGFR NON AFRICAN AMERICAN 76 mL/min (90-120)
[2020-02-07 11:22] LABS: GLUCOSE 68 mg/dL (74-106)
--- NOTE | 2020-02-07 13:20 | NUR ---
The patient awakened and she is feeding herself. She did not want assistance. A female patient is sitting by her and she is trying to converse with her. She is knocking on the table.
--- NOTE | 2020-02-07 14:08 | NUR ---
The patient is getting more and more anxious, took her to the bathroom and she was very wet, she had a small BM. She is restless, and swatting at other patients sitting by her, after her BM, staff assisted her with a shower. Ativan 0.5 mg and Haldol 2 mg po crushed in pudding. Monitor mood and behavior.
--- NOTE | 2020-02-07 15:15 | NUR ---
POOR RESPONSE TO ATIVAN AND HALDOL.THIS AM DOSE OF SERAQUEL CRUSHED AND GIVEN IN CHOCOLATE ICE CREAM.
[2020-02-07 20:27] VITALS: BP 92/71
--- NOTE | 2020-02-07 21:47 | NUR ---
PATIENT RECEIVED GEODON IM FOR EXTREME AGITATION @ 2114 . SHE WAS SCRATCHING STAFF, PULLING STAFF, TRYING TO BITE STAFF AND SAID REPEATEDLY, "GET AWAY FROM ME YOU BITCH". WILL MONITOR FOR EFFECTIVENESS.
--- NOTE | 2020-02-08 12:49 | NUR ---
GOOD RESPONSE TO GEODON,CALM AND QUITE.IS VERY CONFUSED AND DISORIENTED.COMPLIANT WITH MEDS CRUSHED AND GIVEN IN CHOCOLATE ICE CREAM.REQUIRES TOTAL CARE.INCONTINENT OF BOWEL AND BLADDER.WILL CONTINUE WITH CURRENT PLAN OF CARE,MONITOR FOR CHANGES AND SAFETY.
--- NOTE | 2020-02-08 20:39 | NUR ---
RECEIVED PATIENT IN DAYROOM, SITTING AT TABLE, SHE IS EXTREMELY CONFUSED, ANXIOUS BEHAVIOR, CAN NOT BE STILL, SHE REACHES FOR THINGS AND THEN BRINGS HER HANDS TO HER MOUTH IF SHE IS EATING. SHE IS TAKING HER GOWN OFF. SHE PUSHED THIS NURSE AWAY WHILE FEEDING HER HER SNACK. MEDS CRUSHED IN PUDDING. NO ADVERSE REACTION NOTED. WILL FOLLOW POC
[2020-02-09 08:30] VITALS: BP 114/67
--- NOTE | 2020-02-09 12:00 | NUR ---
RECEIVED IN HALLWAY OUTSIDE OF NURSES STATION. CALM AND COOPERATIVE WITH CARE AND ASSESSMENT. NO HALLUCINATIONS. REDIRECT AND REORIENT NEEDED. EATING AT THIS TIME. CONTINUE PLAN OF CARE.
[2020-02-09 21:50] VITALS: BP 98/80
--- NOTE | 2020-02-09 23:27 | NUR ---
RECEIVED IN DAYROOM. RESTING IN A RECLINER WITH PEERS AT HER SIDE. RESTLESS AND VERY CONFUSED. COOPERATIVE WITH CARE AT THAT TIME BUT BECAME INCREASINGLY RESTLESS AND RESISTANT TO CARE AFTER BEING MOVED TO HALLWAY OUTSIDE OF NURSES STATION. INCREASING ANXIETY. PRN ATIVAN 0.5 MG IM GIVEN FOR ANXIETY AND PRN HALDOL AT 2105. CONTINUES TO BE RESTLESS. CONTINUE PLAN OF CARE.
--- NOTE | 2020-02-10 08:00 | NUR ---
REC'D PT IN HALLWAY IN RECLINING CHAIR. AWKAE AND ALERT TO PERSON ONLY. PRESCRIBED MEDS PROVIDED ORDERED. MED COMPLIANT. PT IS ATTEMPTING TO CHEW ON THE ALARM LINE AT THIS TIME. PT REDIRECTED AND REORIENTED NEEDED. FALL PRECAUTIONS IN PLACE. WILL CPOC.
--- NOTE | 2020-02-10 10:00 | NUR ---
SW ATTEMPTED PHONE CALL TO PT'S BROTHER, SUJIT, TO DISCUSS DISCHARGE PLANS. ROBERT WAS NOT ABLE TO LEAVE A MESSAGE.
[2020-02-10 10:40] VITALS: BP 126/74
--- NOTE | 2020-02-10 12:30 | PN ---
PATIENT:LIZBETH DANIELSON MEDICAL RECORD: [id number] LOCATION:[facility] ADMISSION DATE: 01/01/20 PROGRESS NOTE DATE OF SERVICE: 02/06/2020 SUBJECTIVE: The patient's case was discussed with staff. She has no new complaint. OBJECTIVE: The patient continues to be restless, difficult to redirect and has almost no insight about her situation. ASSESSMENT: Vascular dementia. PLAN: Current medicines have been reviewed. I am going to increase the dose of the Seroquel secondary to the agitation she experienced last night that required p.r.n. medication. She is not eating or drinking adequately. She is appropriate for hospice. It may be time to refer her to inpatient hospice. I am going to check baseline labs and I am anticipating that they are showing evidence of her reduced oral intake. ASSESSMENT: Vascular dementia. PLAN: As above medications will be adjusted and basic lab will be checked along with the hospice referral. TRANSINT:[id number] Voice Confirmation ID: [id number] DOCUMENT ID: [id number] NICOLASA NEFF MD at 1230 CC: [id number] DICTATION DATE: 02/06/20 1624 MANAGER CONTACT: 02/06/20 2340 ADM IN [place] [id number] [place] [address]
--- NOTE | 2020-02-10 21:27 | NUR ---
B.) PT IS ALERT AND ORIENTED TO SELF AT TIMES. SHE IS CALM AND RECEIVED IN A GERICHAIR. NO NEW BEHAVIORS. I.) PROVIDED PM MEDICATIONS PRESCRIBED. REDIRECT OFTEN. R.) COMPLIANT WITH ALL MEDICATIONS. UNABLE TO REDIRECT. P.) WILL CONTINUE TO MONITOR.
[2020-02-11 06:14] LABS: BASOPHILS 0.3 % (0-2); EOSINOPHILS 3.9 % (0-7); HEMATOCRIT 40.4 % (36.0-48.0); HEMOGLOBIN 13.5 g/dL (12-16); IMMATURE GRANULOCYTES 0.4 % (0-5); LYMPHOCYTES 27.9 % (15-50); MCH 30.5 pg (26.0-34.0); MCHC 33.4 g/dL (31.0-37.0); MCV 91.2 fL (80.0-100.0); MEAN PLATELET VOLUME 9.1 fL (7.4-10.4); MONOCYTES 9.2 % (2-11); NEUTROPHILS 58.3 % (40-80); PLATELET COUNT 209 10x3/uL (130-400); RBC 4.43 10x6/uL (4.00-5.40); RDW 14.1 % (11.5-14.5); WBC 7.1 10x3/uL (4.8-10.8)
[2020-02-11 06:21] LABS: ANION GAP 8.2 mmol/L (8-16); CALCIUM 9.2 mg/dL (8.5-10.1); CARBON DIOXIDE 27.2 mmol/L (21.0-32.0); CREATININE - SERUM 0.9 mg/dL (0.6-1.3); POTASSIUM - SERUM 4.4 mmol/L (3.5-5.1)
[2020-02-11 08:02] VITALS: BP 138/65
--- NOTE | 2020-02-11 10:04 | NUR ---
SW ATTEMPTED ANOTHER CONTACT WITH PT'S BROTHER, SUJIT, TO DISCUSS DISCHARGE PLANS FOR TODAY. LEFT VM TO CALL UNIT.
--- NOTE | 2020-02-11 10:36 | NUR ---
ROBERT SPOKE TO R PROOFER APPRENTICE NELLY. SHE STATED PT'S BROTHER, SUJIT, HAS AGREED FOR HOSPICE TO START WHEN PT GOES BACK TO THE DETENTION TODAY. NELLY STATED THEY WILL INITIATE THE REFERRAL. NELLY ALSO STATED SUJIT APPROVES FOR PT TO BE DISCHARGED TODAY.
--- NOTE | 2020-02-11 11:31 | PN ---
PATIENT:LIZBETH DANIELSON MEDICAL RECORD: [id number] LOCATION:[facility] ADMISSION DATE: 01/01/20 PROGRESS NOTE DATE OF SERVICE: 02/10/2020 SUBJECTIVE: The patient's case was discussed with staff. She has no new complaint. OBJECTIVE: The patient denies intent to harm herself or others. She is very disorganized. She is drinking adequately, but not eating very much. ASSESSMENT: Dementia. PLAN: We will have basic labs checked again. Her long-term prognosis is guarded. TRANSINT:[id number] Voice Confirmation ID: [id number] DOCUMENT ID: [id number] NICOLASA NEFF MD at 1131 CC: [id number] DICTATION DATE: 02/10/20 1520 BEHAVIORAL SCIENCE CHAIR: 02/11/20 0003 ADM IN [facility] [address] [place] [address]
[2020-02-11] MEDS ORDERED: K-TAB10 MEQ PO (11:46)
[2020-02-11] MEDS ORDERED: PEPCID PO (11:46)
[2020-02-11] MEDS ORDERED: LOPRESSOR25 MG PO (11:46)
[2020-02-11] MEDS ORDERED: ESTRACE 0.0142.5 GM VG (11:46)
[2020-02-11] MEDS ORDERED: NYSTATIN1 PWD TOPICAL (11:46)
[2020-02-11] MEDS ORDERED: KLONOPIN1 MG PO (11:46)
[2020-02-11] MEDS ORDERED: ACETAMINOPHEN500 M1 PO (11:46)
[2020-02-11] MEDS ORDERED: SEROQUEL100 MG PO ×2 (11:46)
[2020-02-11] MEDS ORDERED: Megace ES [CHEMO] PO (11:46)
--- NOTE | 2020-02-11 12:00 | NUR ---
RECEIVED IN HALLWAY OUTSIDE OF NURSES STATION. VERY CONFUSED. RESTLESS. UNABLE TO FOLLOW DIRECTIONS. REDIRECT AND REORIENT NEEDED. EATING AT THIS TIME. CONTINUE PLAN OF CARE.
--- NOTE | 2020-02-11 13:03 | NUR ---
REPORT CALLED TO RICHARD AT [facility]. [facility] CALLED SPOKE WITH [facility]. ALL DISCHARGE PAPERWORK FAXED AND COPY SENT WITH PT AT TIME OF DISCHARGE. PT HAD NO BELONGINGS ON ADMIT.
--- NOTE | 2020-02-11 13:05 | NUR ---
SPOKE WITH RICHARD AT [facility]. REPORTED TO PUSH FLUIDS DUE TO ELEVATED BUN PER MD. THIS NURSE ALSO DISCUSSED PT'S CONDITION AND FROM THIS NURSES UNDERSTANDING FROM SW AND PRISON NURSE. THIS PT WILL RECEIVE HOSPICE CARE AT PRISON AFTER DISCHARGE.
--- NOTE | 2020-02-12 14:06 | PN ---
PATIENT:LIZBETH DANIELSON MEDICAL RECORD: [id number] LOCATION:[facility] ADMISSION DATE: 01/01/20 PROGRESS NOTE DATE OF SERVICE: 02/11/2020 SUBJECTIVE: The patient's case was discussed with staff. She has no new complaint. OBJECTIVE: The patient is severely impaired. She is drinking with some encouragement, but she is still dehydrated with an elevated BUN. Apparently, this has been presented to Dr. Vale and she feels that it is not necessary to put an IV into the patient as she would not keep it, I agree with this. As mentioned throughout the medical record during this stay, her condition is grave. Her dementia is in the final stages and at this point, the most humane thing is to make her comfortable. I have been told she is going to be placed on hospice at the [facility]. I think that is an appropriate thing and again her prognosis is exceedingly poor. ASSESSMENT: Vascular dementia. PLAN: As above. The patient will be discharged today. She will have hospice services at the [facility]. TRANSINT:[id number] Voice Confirmation ID: [id number] DOCUMENT ID: [id number] NICOLASA NEFF MD at 1406 CC: [id number] DICTATION DATE: 02/11/20 1613 COMPUTER INSTRUCTOR: 02/12/20 0001 DIS IN 02/11/20 [id number] [place] [address]
== END 2020-02-11 18:30 | disposition home health service (06) | DRG 57 ==
LOC: D.ER 09:53 → D.PSYCH 14:00 → D.ER 15:45 → D.PSYCH 02-11 18:30
PROVIDERS: Emergency Medicine; Family Medicine; ADMIT Psychiatry & Neurology Psychiatry; ATTEND Psychiatry & Neurology Psychiatry
DX: G30.1 Alzheimer's disease with late onset (principal); F02.81 Dementia in other diseases classified elsewhere, unspecified severity, with behavioral disturbance; I10 Essential (primary) hypertension; E78.5 Hyperlipidemia, unspecified; F32.9 Major depressive disorder, single episode, unspecified; F41.9 Anxiety disorder, unspecified; K21.9 Gastro-esophageal reflux disease without esophagitis; E87.6 Hypokalemia